=== PATIENT | female | born 1955 | race Caucasian/White ===

== ENCOUNTER → 2018-01-16 08:17 | Outpatient (CLI) | payer MEDICARE, SELFPAY | PROVIDERS: Family Provider Nurse Practitioner; PCP Nurse Practitioner; Visit Provider Nurse Practitioner | DX: K46.9 Unspecified abdominal hernia without obstruction or gangrene (principal) ==

== ENCOUNTER → 2018-02-22 10:58 | Outpatient (CLI) | payer MEDICARE, SELFPAY | PROVIDERS: Family Provider Nurse Practitioner; PCP Nurse Practitioner; Visit Provider Nurse Practitioner | DX: Z12.31 Encounter for screening mammogram for malignant neoplasm of breast (principal); Z78.0 Asymptomatic menopausal state | CPT/HCPCS: 77063; 77067; 77080 ==

== ENCOUNTER → 2018-07-09 11:44 | Outpatient (CLI) | payer MEDICARE, SELFPAY ==
[2014-05-27 10:54] VITALS: BMI 19.5
--- NOTE | 2018-07-09 11:51 | RAD_ITS ---
STUDY: X-RAY - LUMBAR SPINE REASON FOR EXAM: Female, 62 years old. Pain. TECHNIQUE: 5 view(s) of the lumbar spine were obtained. COMPARISON: None FINDINGS: Normal lumbar lordosis. There is no substantial scoliosis. There is a normal alignment of the vertebrae. There is generalized demineralization of the vertebral bodies. Normal disc space heights. Lower lumbar facet arthropathy is present. The soft tissue structures are unremarkable. RAD/L/S Spine Min 4 Views IMPRESSION: Diffuse demineralization with no evidence of malalignment or compression deformity. Electronically Signed: Eric Trejo DO at 22:45 EST , Service support ,
== END ==
PROVIDERS: Family Provider Nurse Practitioner; PCP Nurse Practitioner; Referring Provider Nurse Practitioner; Visit Provider Nurse Practitioner
DX: M54.31 Sciatica, right side (principal)
CPT/HCPCS: 72110

== ENCOUNTER → 2018-07-11 11:22 | Outpatient (CLI) | payer MEDICARE, SELFPAY ==
--- NOTE | 2018-07-11 11:25 | RAD_ITS ---
STUDY: X-RAY - CERVICAL SPINE REASON FOR EXAM: Female, 62 years old. Posterior neck pain radiating into arms x2 years TECHNIQUE: 6 view(s) of the cervical spine were obtained. COMPARISON: None FINDINGS: Normal anterior atlantoaxial articulation. Normal odontoid process. Normal cervical lordosis. There is endplate spondylosis of C6 and C7. There is mild narrowing of the C5-6 and C6-7 disc spaces. There is bilateral foraminal narrowing at the C5-6 and C6-7 levels. The soft tissue structures are unremarkable. RAD/Cerv Spine 4 or 5 Views IMPRESSION: Degenerative changes of the lower cervical spine as detailed above. There is no evidence of fracture or subluxation. Electronically Signed: Cuauhtemoc Maxwell MD at 22:24 EST , Service support ,
--- OUTSIDE RECORDS SUMMARY | 2018-09-15 07:33 | XMS RPT_ITS | Continuity of Care Document ---
:1955 Author Organization [facility] Address [address] [place] [address] Phone Care Team Providers Name Role Phone Amy Thomas CNP Unavailable Judy Emmanuel Unavailable Unavailable Unavailable Unavailable Problems Name Dates Details 5 live births, 2 miscarriages Status: Active Abdominal pain (R10.9, 789.00) Comments: epigastric and left upper Status: Active BMI 20.0-20.9, adult (Z68.20, V85.1) Status: Active Constipation (K59.00, 564.00) Comments: improved with MOM Status: Active Current smoker (F17.200, 305.1) Comments: guerita try to get CtA low dose reordered once we find out about her insurance Status: Active Depression (F32.9, 311) Status: Active Encounter for general adult medical examination with abnormal findings (Z00.01, V70.0) Status: Active Encounter for screening for malignant neoplasm of colon (Renamed from Special screening for malignant neoplasms, colon) (Z12.11, V76.51) Comments: 2004, thinks had it at [place] Status: Active Encounter for screening mammogram for breast cancer (Renamed from Encounter for screening mammogram for malignant neoplasm of breast) (Z12.31, V76.12) Status: Active Facet arthropathy, lumbosacral (M47.817, 721.3) Comments: suggest pain managment, but does not want it Status: Active Family history of lung cancer (Z80.1, V16.1) Comments: sister age 61 Status: Active Fibromyalgia (M79.7, 729.1) Comments: was on lyrica in past unable to tolerate, unable to tolerate cymbalta Status: Active Hand pain, left (M79.642, 729.5) Status: Active Hernia, abdominal (K46.9, 553.9) Comments: surgical scars present, was told in past by Dr. Avila that she has hernia Status: Active Hypercholesteremia (E78.00, 272.0) Comments: quit lipitor could not tolerat simvastatin Status: Active Hypothyroid (E03.9, 244.9) Comments: continue same dose levothyroxine Status: Active Low back ache (M54.5, 724.2) Comments: chronic recent ER for sciatica Status: Active Lung nodule (R91.1, 793.11) Comments: per self history, told to her by Dr. Avila will get old records Status: Active Neck pain (M54.2, 723.1) Status: Active Osteoarthritis (M19.90, 715.90) Status: Active Osteoporosis (M81.0, 733.00) Comments: recommend proliain past in 90's on fosamax and other med quit caused rectal bleed Status: Active Pain in unspecified joint (Renamed from Joint pain) (M25.50, 719.40) Comments: ? arthritis, rheumatoid, vs poly arthropathy will work up Status: Active Postmenopausal (Renamed from Postmenopausal status) (Z78.0, V49.81) Status: Active Rheumatoid arthritis (M06.9, 714.0) Status: Active Sciatica of right side (M54.31, 724.3) Comments: with history of low back pain x 2 years. with rt thigh pain and left side hurting morehistory of deteriorated disc in low back Status: Active Unspecified Diagnosis Status: Active Vitamin D deficiency (E55.9, 268.9) Comments: Suggesting to buy the Vitaimin K2 with D3 today Status: Active Medications Name Dates Details Elavil 25 MG Oral Tablet 1/2 Tablet Tablet qhs for 0 days Quantity: 30 {Tablet} Refills: 3 Ordered:11-Jan-2018 Judy Emmanuel Start : 11-Jan-2018 Active Ergocalciferol 99325 UNIT Oral Capsule 1 (one) Capsule twice weekly x 3months for 0 days Quantity: 12 {Capsule} Refills: 0 Ordered:16-Derick-2019 Martha DOROTHEA Amy Boo CNP, Amy Mcdaniel Start : 11-Jul-2018 Active Gabapentin 300 MG Oral Capsule 1 (one) Capsule Capsule TAD for 0 days Quantity: 90 {Capsule} Refills: 0 Ordered:09-Jul-2018 Judy Emmanuel Start : 09-Jul-2018 Active Comments:Take 1 pill x 1 day, then 1 twice daily x 1 day, then 1 three times a dayOarrs run Ibuprofen 200 MG Oral Capsule 1 (one) Capsule prn for 0 days Quantity: 30 {Capsule} Refills: 0 Ordered:09-Jul-2018 Martha PIEDRA Amy Boo PANTRY ATTENDANT, Amy Mcdaniel Start : 09-Jul-2018 Active Levothyroxine Sodium 50 MCG Oral Tablet 1 (one) Tablet Tablet daily for 0 days Quantity: 30 {Tablet} Refills: 3 Ordered:30-Jan-2018 Judy Emmanuel Start : 11-Jan-2018 Active Meloxicam 15 MG Oral Tablet 1 (one) Tablet qd for 0 days Quantity: 30 {Tablet} Refills: 0 Ordered:11-Jul-2018 Martha PIEDRA Amy Boo DOROTHEA Amy Mcdaniel Start : 11-Jul-2018 Active Comments:with food PredniSONE 10 MG Oral Tablet 1 (one) Tablet Tablet bid x 3 days, 1 daily x 3 days, 1/2 daily x 3 days for 0 days Quantity: 12 {Tablet} Refills: 0 Ordered:09-Jul-2018 Judy Emmanuel Start : 09-Jul-2018 Active Comments:with food Prolia 60 MG/ML Subcutaneous Solution 1 (one) Milliliter [id number] for 0 days Quantity: 1 {Milliliter} Refills: 0 Ordered:11-Jul-2018 Martha PIEDRA Amy Boo CNP Amy Mcdaniel Start : 11-Jul-2018 Active Prolia 60 MG/ML Subcutaneous Solution 1 (one) Milliliter [id number] for 0 days Quantity: 1 {Syringe} Refills: 1 Ordered:11-Jul-2018 Martha PIEDRA Amy Boo DOROTHEA Amy Mcdaniel Start : 11-Jul-2018 Active Lipitor 10 MG Oral Tablet 1 (one) Tablet Tablet qhs for 0 days Quantity: 30 {Tablet} Refills: 6 Ordered:09-Jul-2018 Judy Emmanuel Start : 30-Jan-2018 End : 09-Jul-2018 Discontinued Medrol 4 MG Oral Tablet 1 (one) Tablet Tablet TAD for 0 days Quantity: 1 {Package} Refills: 0 Ordered:09-Jul-2018 CholoJudy castellon Start : 05-Feb-2018 End : 09-Jul-2018 Discontinued Comments:with food Allergies and Adverse Reactions Name Dates Details No Allergy Information Available Status: Procedures Procedure Dates Details Gallbladder Surgery Completed Hysterectomy Completed Date Value Details 09-Jul-2018 L/S Spine Min 4 Views Result: Comments: See Note; NOTES: [facility] Imaging Services [address] [place] [address] L/S Spine Min 4 Views MR#: [id number] Acct: [id number] Name: YANELY CEJA Rep #: [id number] : 1955 F 62 From: Eric Trejo DO PCP: Amy Thomas NP Status: REG CLI Study: L/S Spine Min 4 Views Date of Exam: 07/09/18 Exam# [id number] Ordering Dr: Amy Thomas HOME ENERGY INSPECTOR-C STUDY: X-RAY - LUMBAR SPINE REASON FOR EXAM: Female, 62 years old. Pain. TECHNIQUE: 5 view(s) of the lumbar spine were obtained. COMPARISON: None FINDINGS: Normal lumbar lordosis. Ther e is no substantial scoliosis. There is a normal alignment of the vertebrae. There is generalized demineralization of the vertebral bodies. Normal disc space heights. Lower lumbar facet arthropathy is present. The soft tissue structures are unremarkable. RAD/L/S Spine Min 4 Views IMPRESSION: Diffuse demineralization with no evidence of malalig nment or compression deformity. Electronically Signed: Eric Trejo DO at 22:45 EST , Service support , CC: Amy Thomas NP Manager Assessment: Signed 09-Jul-2018 L/S Spine Min 4 Views Result: Comments: See Note; NOTES: [facility] Imaging Services [address] [place] [address] L/S Spine Min 4 Views MR#: [id number] Acct: [id number] Name: YANELY CEJA Rep #: [id number] : 1955 F 62 From: Eric Trejo PCP: Amy Thomas NP Status: REG CLI Study: L/S Spine Min 4 Views Date of Exam: 07/09/18 Exam# [id number] Ordering Dr: Amy Thomas HOME ENERGY INSPECTOR-C STUDY: X-RAY - LUMBAR SPINE REASON FOR EXAM: Female, 62 years old. Pain. TECHNIQUE: 5 view(s) of the lumbar spine were obtained. COMPARISON: None FINDINGS: Normal lumbar lordosis. Ther e is no substantial scoliosis. There is a normal alignment of the vertebrae. There is generalized demineralization of the vertebral bodies. Normal disc space heights. Lower lumbar facet arthropathy is present. The soft tissue structures are unremarkable. RAD/L/S Spine Min 4 Views IMPRESSION: Diffuse demineralization with no evidence of malalig nment or compression deformity. Electronically Signed: Eric Trejo DO at 22:45 EST , Service support , CC: Amy Thomas NP Manager Assessment: Signed 22-Feb-2018 Dexa Bone Density Study Result: Comments: See Note; NOTES: [facility] Imaging Services [address] [place] [address] Dexa Bone Density Study MR#: [id number] Acct: [id number] Name: YANELY CEJA Rep #: [id number] : 1955 F 62 From: Sergey Walsh MD PCP: Amy Thomas NP Status: REG CLI Study: Dexa Bone Density Study Date of Exam: 02/22/18 Exam# [id number] Ordering Dr: Amy Thomas STUDY: DUAL ENERG Y X-RAY ABSORPTIOMETRY / DXA REASON FOR EXAM: Female, 62 years old. The patient is postmenopausal. Loss of height. TECHNIQUE: Bone Mineral Density (BMD) measurements of lumbar spine and bilateral hips were obtained. COMPARISON: None. FINDINGS: Lumbar Spine (L1-L4): g/cm2 (0.791) / T-score (-3.2) / Z-score (-1.8) Findings are suggestive of osteoporosis with a hi gh fracture risk. Left Femur Total: g/cm2 (0.653) / T-score (-2.8) / Z-score (-1.7) Left Femoral Neck: g/cm2 (0.590) / T-score (-3.2) / Z-score (-1.8) Right Femur Total: g/cm2 (0.618) / T-score (-3.1) / Z-score (-2.0) Right Femoral Neck: g/cm2 (0.5-3) / T-score (-3.7) / Z-score (-2.3) BD/Dexa Bone Density Study IMPRESSION: The patient is consi dered osteoporotic as outlined below according to World Nav Organization (WHO) criteria with a high fracture risk. Reference Information: The T-score is the numbe r of standard deviations above or below the standard which is normal for young adults at their peak bone mineral density. The World Health Organization (WHO) interprets the T-scores as follows: Above - 1 Normal bone density Between -1 and -2.5 Osteopenia Equal to / or below -2.5 Osteoporosis As a practical clinical guideline, osteopenia may be graded as follows: Mild -1 through -1.5 Moderate -1.6 thr ough -2.0 Severe -2.1 through -2.4 The Z-score is the number of standard deviations above or below age-matched controls. A Z-score of less than -1.5 would be considered abnormal. References: 1. NIH Os teoporosis and Related Bone Diseases http://www.osteo.org 2. International Society for Clinical Densitometry http://www.iscd.org 3. National Osteoporosis Foundation http://www.nof.org Electronically Si gned: Sergey Walsh MD at 15:25 EDT Tel [phone], Service support , CC: Amy Thomas NP Manager Assessment: Signed 22-Feb-2018 SCREENING MAMM (CAD), BILAT Result: Comments: See Note; NOTES: [facility] Imaging Services [address] [place] [address] SCREENING MAMM (CAD), BILAT MR#: [id number] Acct: [id number] Name: YANELY CEJA Rep #: [id number] : 1955 F 62 From: Sergey Walsh MD PCP: Amy Thomas NP Status: REG CLI Study: SCREENING MAMM (CAD), BILAT Date of Exam: 02/22/18 Exam# [id number] Ordering Dr: Amy Thomas MAMMOGRAP HY - BILATERAL SCREENING REASON FOR EXAM: Female, 62 years old. Routine annual screening examination. PERTINENT HISTORY: Non-contributory. TECHNIQUE: Digital bilateral breast aron (3D mammographic ac quisition) in the CC and MLO projections. 2-D mediolateral oblique (MLO) and craniocaudad (CC) views of both breasts were obtained. CAD: Full Field Digital Mammography with Computer Added Detection was performed. COMPARISON: Comparison is made with prior examination of April 22, 2014. FINDINGS: Breast Composition: There are scattered areas of fibroglandular dens ity. There are no dominant masses or suspicious calcifications. No other significant abnormalities are identified. There has been no significant change since the prior study. BI/SCREENING MAMM (CAD), BILAT IMPRESSION: Stable bilateral screening mammogram. Yearly follow-up mammogram recommended. (A) ASSESSM ENT CATEGORY: BIRADS Category 1: Negative. A letter regarding these results will be sent to the patient by the facility within 30 days. Approximately 10% of breast cancers are not detected by mammograp hy. A normal mammogram should not delay biopsy of a clinically suspicious abnormality. [id number] Electronically Signed: Sergey Walsh MD at 12:57 EDT Tel [phone], Service support [phone], CC: Amy Thomas NP Manager Assessment: Signed Family History Unknown Family Member Name Dates Details Mother Comments: Melanoma Status: Active Sister 1 Comments: Lung cancer Status: Active Social History Name Dates Details Alcohol use: Non Drinker / No Alcohol Use. Status: Active Tobacco use: Current every day smoker. Status: Active Smoking Status Name Dates Details Current every day smoker Vital Signs Date Test Result Details 25-Rng-775039:30 Temperature 97.9 f Comments: Method: Temporal Pulse 93 /min Comments: Pattern: Regular Respiration Rate 18 /min Comments: Pattern: Unlabored O2 SAT 98 % Comments: Room air BP Systolic 130 mm[Hg] Comments: Patient Position: Sitting; Cuff Location: Left Arm; Cuff Size: Standard BP Diastolic 80 mm[Hg] Comments: Patient Position: Sitting; Cuff Location: Left Arm; Cuff Size: Standard Weight 111 lb Height 62 in Body Mass Index Calculated 20.3 kg/m2 Body Surface Area Calculated 1.49 m2 41-Gqe-311148:31 Temperature 97.2 f Comments: Method: Temporal Pulse 92 /min Comments: Pattern: Regular Respiration Rate 18 /min Comments: Pattern: Unlabored O2 SAT 97 % Comments: Room air BP Systolic 134 mm[Hg] Comments: Patient Position: Sitting; Cuff Location: Left Arm; Cuff Size: Standard BP Diastolic 78 mm[Hg] Comments: Patient Position: Sitting; Cuff Location: Left Arm; Cuff Size: Standard Weight 111 lb Height 62 in Body Mass Index Calculated 20.3 kg/m2 Body Surface Area Calculated 1.49 m2 :15 Temperature 96.4 f Comments: Method: Temporal Pulse 79 /min Comments: Pattern: Regular Respiration Rate 18 /min Comments: Pattern: Unlabored O2 SAT 97 % Comments: Room air BP Systolic 102 mm[Hg] Comments: Patient Position: Sitting; Cuff Location: Left Arm; Cuff Size: Standard BP Diastolic 68 mm[Hg] Comments: Patient Position: Sitting; Cuff Location: Left Arm; Cuff Size: Standard Weight 112.25 lb Height 62 in Body Mass Index Calculated 20.53 kg/m2 Body Surface Area Calculated 1.5 m2 :02 Temperature 98 f Comments: Method: Temporal Pulse 88 /min Comments: Pattern: Regular Respiration Rate 17 /min Comments: Pattern: Unlabored O2 SAT 91 % Comments: Room air BP Systolic 124 mm[Hg] Comments: Patient Position: Sitting; Cuff Location: Left Arm; Cuff Size: Standard BP Diastolic 74 mm[Hg] Comments: Patient Position: Sitting; Cuff Location: Left Arm; Cuff Size: Standard Weight 112 lb Height 62 in Body Mass Index Calculated 20.48 kg/m2 Body Surface Area Calculated 1.49 m2 :56 Temperature 98.1 f Comments: Method: Temporal Pulse 89 /min Comments: Pattern: Regular Respiration Rate 18 /min Comments: Pattern: Unlabored O2 SAT 99 % Comments: Room air BP Systolic 108 mm[Hg] Comments: Patient Position: Sitting; Cuff Location: Left Arm; Cuff Size: Standard BP Diastolic 52 mm[Hg] Comments: Patient Position: Sitting; Cuff Location: Left Arm; Cuff Size: Standard Weight 112 lb Height 62 in Body Mass Index Calculated 20.48 kg/m2 Body Surface Area Calculated 1.49 m2 :13 Temperature 98 f Pulse 88 /min Comments: Pattern: Regular Respiration Rate 17 /min Comments: Pattern: Unlabored O2 SAT 99 % Comments: Room air BP Systolic 120 mm[Hg] Comments: Patient Position: Sitting; Cuff Location: Left Arm; Cuff Size: Standard BP Diastolic 76 mm[Hg] Comments: Patient Position: Sitting; Cuff Location: Left Arm; Cuff Size: Standard Weight 112 lb Height 62 in Body Mass Index Calculated 20.48 kg/m2 Body Surface Area Calculated 1.49 m2 Results Date Description Value Details 48-Diz-128964:32 ANGTENSIN 1-CONVRT ENZYM Comments: PATIENT NOT FASTINGPERFORMED BY: [place] [id number] [facility] [id number] BY: [address] [id number] ([id number]) TIMMY 36 U/L (Normal) Range: 14-82 45-Xlm-453640:32 Lyme Disease Antibody W/ Comments: PATIENT NOT FASTINGPERFORMED BY: [address] [id number] BY: [address] [id number] Reflex ([id number]) Lyme IgG/IgM Ab <0.91 {ISR} (Normal) Range: 0.00-0.90 Comments: Negative <0.91 Equivocal 0.91 - 1.09 Positive >1.09 84-Gec-460371:32 CCP ANTIBODY (69644) Comments: PATIENT NOT FASTINGPERFORMED BY: [place] [id number] [facility] [id number] BY: [address] [id number] CCP Antibodies IgG/IgA 4 {units} (Normal) Range: 0-19 Comments: Negative <20 Weak positive 20 - 39 Moderate positive 40 - 59 Strong positive >59 44-Ucj-284495:32 SED RATE ERYTHROCYTE Comments: PATIENT NOT FASTINGPERFORMED BY: [address] [id number] BY: [address] [id number] ([id number]) Sedimentation Rate-Westergren 3 mm/h (Normal) Range: 0-40 76-Ilg-671481:32 C-REACTIVE PROTEIN Comments: PATIENT NOT FASTINGPERFORMED BY: [address] [id number] BY: [address] [id number] (83870) C-Reactive Protein, Quant 0.4 mg/L (Normal) Range: 0.0-4.9 46-Gdy-506503:32 TSH (70455) Comments: PATIENT NOT FASTINGPERFORMED BY: [facility] [id number] [facility] [id number] BY: [address] [id number] TSH 2.230 {uIU/mL} (Normal) Range: 0.450-4.500 41-Mpt-657071:32 RHEUMATOID FACTOR-QUANT Comments: PATIENT NOT FASTINGPERFORMED BY: [facility] [id number] [facility] [id number] BY: [address] [id number] ([id number]) RA Latex Turbid. <10.0 {IU/mL} (Normal) Range: 0.0-13.9 06-Crq-489823:32 TOMI (ANTINUCLEAR ANTIBODY) Comments: PATIENT NOT FASTINGPERFORMED BY: [facility] [id number] [facility] [id number] BY: [address] [id number] (77712) TOMI Direct Negative (Normal) 42-Ifz-848315:32 METABOLIC PANEL, Comments: PATIENT NOT FASTINGPERFORMED BY: [facility] [id number] [facility] [id number] BY: [address] [id number] COMPREHENSIVE (29088) ALT (SGPT) 12 [iU]/L (Normal) Range: 0-32 AST (SGOT) 16 [iU]/L (Normal) Range: 0-40 Alkaline Phosphatase 77 [iU]/L (Normal) Range: 39-117 Bilirubin, Total <0.2 mg/dL (Normal) Range: 0.0-1.2 A/G Ratio 1.9 (Normal) Range: 1.2-2.2 Globulin, Total 2.4 g/dL (Normal) Range: 1.5-4.5 Albumin 4.5 g/dL (Normal) Range: 3.6-4.8 Protein, Total 6.9 g/dL (Normal) Range: 6.0-8.5 Calcium 9.5 mg/dL (Normal) Range: 8.7-10.3 Carbon Dioxide, Total 23 mmol/L (Normal) Range: 20-29 Chloride 106 mmol/L (Normal) Range: 96-106 Potassium 4.5 mmol/L (Normal) Range: 3.5-5.2 Sodium 142 mmol/L (Normal) Range: 134-144 BUN/Creatinine Ratio 15 (Normal) Range: 12-28 eGFR If Africn Am 92 mL/min/1.73 (Normal) eGFR If NonAfricn Am 80 mL/min/1.73 (Normal) Creatinine 0.79 mg/dL (Normal) Range: 0.57-1.00 BUN 12 mg/dL (Normal) Range: 8-27 Glucose 90 mg/dL (Normal) Range: 65-99 22-Opg-091033:32 CBC with auto diff Comments: PATIENT NOT FASTINGPERFORMED BY: CB [facility] Laehfx9822 [facility] [id number] BY: BN [facility] Kqpopjjupp7049 [facility] [id number] (87860) Immature Grans (Abs) 0.0 {x10E3/uL} (Normal) Range: 0.0-0.1 Immature Granulocytes 0 % (Normal) Baso (Absolute) 0.0 {x10E3/uL} (Normal) Range: 0.0-0.2 Eos (Absolute) 0.1 {x10E3/uL} (Normal) Range: 0.0-0.4 Monocytes(Absolute) 0.5 {x10E3/uL} (Normal) Range: 0.1-0.9 Lymphs (Absolute) 3.1 {x10E3/uL} (Normal) Range: 0.7-3.1 Neutrophils (Absolute) 4.1 {x10E3/uL} (Normal) Range: 1.4-7.0 Basos 0 % (Normal) Eos 1 % (Normal) Monocytes 7 % (Normal) Lymphs 40 % (Normal) Neutrophils 52 % (Normal) Platelets 279 {x10E3/uL} (Normal) Range: 150-379 RDW 12.9 % (Normal) Range: 12.3-15.4 MCHC 32.6 g/dL (Normal) Range: 31.5-35.7 MCH 32.6 pg (Normal) Range: 26.6-33.0 MCV 100 fL (Abnormal) Range: 79-97 Hematocrit 43.9 % (Normal) Range: 34.0-46.6 Hemoglobin 14.3 g/dL (Normal) Range: 11.1-15.9 RBC 4.39 {x10E6/uL} (Normal) Range: 3.77-5.28 WBC 7.7 {x10E3/uL} (Normal) Range: 3.4-10.8 37-Kth-458485:13 URINALYSIS ([id number]) Comments: PATIENT WAS FASTINGPERFORMED BY: [email or web address] [id number] Microscopic Examination MICNIP (Normal) Comments: Microscopic not indicated and not performed. Nitrite, Urine Negative (Normal) Urobilinogen,Semi-Qn 0.2 mg/dL (Normal) Range: 0.2-1.0 Bilirubin Negative (Normal) Occult Blood Negative (Normal) Ketones Negative (Normal) Glucose Negative (Normal) Protein Negative (Normal) WBC Esterase Negative (Normal) Appearance Clear (Normal) Urine-Color Yellow (Normal) pH 6.0 (Normal) Range: 5.0-7.5 Specific [place] 1.013 (Normal) Range: 1.005-1.030 78-Imm-771122:13 CBC, Platelets & Auto Comments: PATIENT WAS FASTINGPERFORMED BY: [facility] CenterWssnbg2157 [facility] [id number] Information: [id number] Diff (83189) Immature Grans (Abs) 0.0 {x10E3/uL} (Normal) Range: 0.0-0.1 Immature Granulocytes 0 % (Normal) Baso (Absolute) 0.0 {x10E3/uL} (Normal) Range: 0.0-0.2 Eos (Absolute) 0.1 {x10E3/uL} (Normal) Range: 0.0-0.4 Monocytes(Absolute) 0.5 {x10E3/uL} (Normal) Range: 0.1-0.9 Lymphs (Absolute) 3.5 {x10E3/uL} (Abnormal) Range: 0.7-3.1 Neutrophils (Absolute) 4.3 {x10E3/uL} (Normal) Range: 1.4-7.0 Basos 0 % (Normal) Eos 1 % (Normal) Monocytes 6 % (Normal) Lymphs 41 % (Normal) Neutrophils 52 % (Normal) Platelets 281 {x10E3/uL} (Normal) Range: 150-379 RDW 13.0 % (Normal) Range: 12.3-15.4 MCHC 33.8 g/dL (Normal) Range: 31.5-35.7 MCH 34.1 pg (Abnormal) Range: 26.6-33.0 MCV 101 fL (Abnormal) Range: 79-97 Hematocrit 43.8 % (Normal) Range: 34.0-46.6 Hemoglobin 14.8 g/dL (Normal) Range: 11.1-15.9 RBC 4.34 {x10E6/uL} (Normal) Range: 3.77-5.28 WBC 8.4 {x10E3/uL} (Normal) Range: 3.4-10.8 67-Ztj-598572:13 Metabolic Panel, Comprehensive Comments: PATIENT WAS FASTINGPERFORMED BY: LabCoH[facility] CenterRredti6079 [facility] [id number] ([id number]) ALT (SGPT) 14 [iU]/L (Normal) Range: 0-32 AST (SGOT) 16 [iU]/L (Normal) Range: 0-40 Alkaline Phosphatase 81 [iU]/L (Normal) Range: 39-117 Bilirubin, Total 0.3 mg/dL (Normal) Range: 0.0-1.2 A/G Ratio 1.9 (Normal) Range: 1.2-2.2 Globulin, Total 2.4 g/dL (Normal) Range: 1.5-4.5 Albumin 4.6 g/dL (Normal) Range: 3.6-4.8 Protein, Total 7.0 g/dL (Normal) Range: 6.0-8.5 Calcium 9.9 mg/dL (Normal) Range: 8.7-10.3 Carbon Dioxide, Total 23 mmol/L (Normal) Range: 20-29 Chloride 105 mmol/L (Normal) Range: 96-106 Potassium 5.1 mmol/L (Normal) Range: 3.5-5.2 Sodium 144 mmol/L (Normal) Range: 134-144 BUN/Creatinine Ratio 17 (Normal) Range: 12-28 eGFR If Africn Am 95 mL/min/1.73 (Normal) eGFR If NonAfricn Am 82 mL/min/1.73 (Normal) Creatinine 0.77 mg/dL (Normal) Range: 0.57-1.00 BUN 13 mg/dL (Normal) Range: 8-27 Glucose 96 mg/dL (Normal) Range: 65-99 57-Hvs-408427:13 LIPID PANEL (63935) Comments: PATIENT WAS FASTINGPERFORMED BY: [employer] Igcrzc2757 [facility] [id number] LDL/HDL Ratio 2.6 {ratio} (Normal) Range: 0.0-3.2 Comments: LDL/HDL Ratio Men Women 1/2 Avg.Risk 1.0 1.5 Av g.Risk 3.6 3.2 2X Avg.Risk 6.2 5.0 3X Avg.Risk 8.0 6.1 LDL Cholesterol Calc 187 mg/dL (Abnormal) Range: 0-99 VLDL Cholesterol Anoop 30 mg/dL (Normal) Range: 5-40 HDL Cholesterol 71 mg/dL (Normal) Triglycerides 150 mg/dL (Abnormal) Range: 0-149 Cholesterol, Total 288 mg/dL (Abnormal) Range: 100-199 47-Xqu-976125:13 CALCIFEDIOL (70912) Comments: PATIENT WAS FASTINGPERFORMED BY: [facility] GroupHoboken [facility] Medical CenterKvacwh2753 [facility] [id number] Vitamin D, 25-Hydroxy 22.6 ng/mL (Abnormal) Range: 30.0-100.0 Comments: Vitamin D deficiency has been defined by the [place] of[place]icine and an Endocrine Society practice guideline as alevel of serum 25-OH vitamin D less than 20 ng/mL (1,2).The Endocrine Society went on to further define vitamin Dinsufficiency as a level between 21 and 29 ng/mL (2).1. IOM ([place] of [employer]). 2010. Dietary reference intakes for calcium and D. [place]: The National Academies Press.2. Tammy MF, Dav NC, Armida HALEY, et al. Evaluation, treatment, and prevention of vitamin D deficiency: an Endocrine Society clinical practice guideline. JCEM. 2010; 96(7):1911-30. 03-Lck-375593:13 TSH (THYROID STIMULATING Comments: PATIENT WAS FASTINGPERFORMED BY: LabCoH[facility] CenterOrzads0465 [facility] [id number]; OV 01/26 HORMONE) (85980) TSH 2.950 {uIU/mL} (Normal) Range: 0.450-4.500 Plan of Care Name Dates Details Instructions BMI 20.0-20.9, adult : Follow up in 3 months Indication: BMI 20.0-20.9, adult BMI 20.0-20.9, adult : Follow up in 3 months Indication: BMI 20.0-20.9, adult Current smoker : Eprescribed prescriptions (G8553) Indication: Current smoker BMI 20.0-20.9, adult : Follow up in 2 or 4 weeks Indication: BMI 20.0-20.9, adult Current smoker : Eprescribed prescriptions (G8553) Indication: Current smoker BMI 20.0-20.9, adult : Follow up as needed Indication: BMI 20.0-20.9, adult Current smoker : Eprescribed prescriptions (G8553) Indication: Current smoker BMI 20.0-20.9, adult : Follow up in 3 weeks Indication: BMI 20.0-20.9, adult Current smoker : Eprescribed prescriptions (G8553) Indication: Current smoker Postmenopausal (Renamed from Postmenopausal status) : Follow up in 3 months Indication: Postmenopausal (Renamed from Postmenopausal status) Hypothyroid : Reviewed Diagnostic Tests Indication: Hypothyroid Hypothyroid : Reviewed Lab Indication: Hypothyroid Current smoker : Eprescribed prescriptions (G8553) Indication: Current smoker Low back ache : Follow up in 2 weeks Indication: Low back ache Encounter for screening for malignant neoplasm of colon (Renamed from Special screening for malignant neoplasms, colon) : *Colon Cancer Screening Indication: Encounter for screening for malignant neoplasm of colon (Renamed from Special screening for malignant neoplasms, colon) Hypothyroid : Eprescribed prescriptions (G8553) Indication: Hypothyroid Planned Observations Metabolic Panel, Comprehensive ([id number])Indication: Hypercholesteremia On: 1-Cxt-893420:03 Request Comments: Apr 2018 LIPID PANEL ([id number])Indication: Hypercholesteremia On: 7-Imq-637398:03 Request Comments: Apr 2018 Planned Encounters Medical; 3 Month FU - On: 10-Oct-2018 11:15 [facility] Amy Thomas CNP, CNP, Mary E Planned Procedures Radiology - Cervical SpineBy: Martha On: 11-Jul-2018 Intent Amy PIEDRA CNP, Mary E Radiology - Lumbar SpineBy: Martha PIEDRA, On: 09-Jul-2018 Intent Amy Norwood CNP CTA OF CHEST WITHOUT CONTRAST THEN CTA On: 05-Feb-2018 Intent OF CHEST AND ABDOMEN WITH CONTRAST ([id number])By: Amy Thomas CNP, CNP, Mary E DEXA SCAN AXIAL SKELETON ([id number])By: On: 30-Jan-2018 Intent Amy Thomas CNP, CNP, Mary E SCREENING DIGITAL TOMOSYNTHESIS OF On: 30-Jan-2018 Intent BREAST ([id number])By: Amy Thomas CNP, CNP, Mary E CT SCAN OF ABDOMEN AND PELVIS WITH On: 16-Jan-2018 Intent CONTRAST ([id number])By: Amy Thomas CNP Comments: hernia vs colon issue vs other Amy Thomas CNP Ultrasound - Abdomen CompleteBy: Martha On: 11-Jan-2018 Intent Amy PIEDRA CNP, Mary E DEXA SCAN AXIAL SKELETON ([id number])By: On: 11-Jan-2018 Intent Amy Thomas CNP, CNP, Mary E SCREENING DIGITAL TOMOSYNTHESIS OF On: 11-Jan-2018 Intent BREAST ([id number])By: Amy Thomas CNP, CNP, Mary E Instructions Name Dates Details Current smoker : How to access health information online Indication: Current smoker Current smoker : How to access health information online - Detail Indication: Current smoker BMI 20.0-20.9, adult : Patient Instructions Indication: BMI 20.0-20.9, adult Current smoker : How to access health information online Indication: Current smoker Current smoker : How to access health information online - Detail Indication: Current smoker Current smoker : Patient Instructions Indication: Current smoker Current smoker : How to access health information online Indication: Current smoker Current smoker : How to access health information online - Detail Indication: Current smoker Current smoker : Patient Instructions Indication: Current smoker Current smoker : How to access health information online Indication: Current smoker Current smoker : How to access health information online - Detail Indication: Current smoker Current smoker : Patient Instructions Indication: Current smoker Current smoker : How to access health information online Indication: Current smoker Current smoker : How to access health information online - Detail Indication: Current smoker BMI 20.0-20.9, adult : Patient Instructions Indication: BMI 20.0-20.9, adult Hypothyroid : How to access health information online Indication: Hypothyroid Hypothyroid : How to access health information online - Detail Indication: Hypothyroid Hypothyroid : Patient Instructions Indication: Hypothyroid Encounters Office Visit On: 11-Jul-2018 10:29 Encounter Reason: Follow up tests - Diagnostic tests include other (test) and X- Ray. Date: (07/09/18). Note for Discuss procedure results: Here to discuss lab results and painEncounter Diagnosis: Current smoker, BMI 20.0-20.9, adult, End: 11-Jul-2018 11:07 Facet arthropathy, lumbosacral, Osteoporosis, Neck pain, Hand pain, left, Vitamin D deficiency [facility] Office Visit On: 09-Jul-2018 10:30 Encounter Reason: Leg Pain - Symptoms include leg pain. The pain is located symmetrically. The patient describes the pain as aching, burning, stinging and throbbing. Onset was month(s) ago. Note for Leg pain: Gets up i End: 09-Jul-2018 11:25 n am and legs hurt and throbbing. ??Hurt constantly, can hardly sleep, arms go numb.Has feeling of pins and needle, in legs, [ADDITIONAL REASON] Arm pain - The pain has been occurring for months. Note for Pain: both arms: stinging, throbbing, burning, aching Encounter Diagnosis: Current smoker, BMI 20.0- 20.9, adult, Pain in unspecified joint (Renamed from Joint pain), Sciatica of right side [facility] Office Visit On: 27-Feb-2018 11:12 Encounter Reason: Follow up tests - Diagnostic tests include bone scan (bone density) and mammography. Date: (02/22/18). Note for Discuss procedure results: Here to discuss labs and bone density, End: 27-Feb-2018 12:00 [ADDITIONAL REASON] Follow up acute care visit - The patient feeling better since last seen. Encounter Diagnosis: Current smoker, BMI 20.0-20.9, adult, Osteoporosis, Constipation [facility] Office Visit On: 05-Feb-2018 15:00 Encounter Reason: Abdominal pain - The onset of the pain has been gradual and has been occurring in a persistent pattern. The course has been constant. The pain is described as dull ache. The pain is described as being l End: 05-Feb-2018 16:01 ocated in the upper abdomen. The symptoms have no relieving factors. Note for Pain: Was to get CT scan but not got it done, was to be Jan 26, [ADDITIONAL REASON] lung spot - History per Dr. Avila of a lung nodule, strong family history of can cer, twin with lung cancer, other sister with stomach cancer. Encounter Diagnosis: BMI 20.0-20.9, adult, Current smoker, Abdominal pain, Hernia, abdominal, Family history of lung cancer, Lung nodule, Sciatica of right side [facility] Office Visit On: 30-Jan-2018 10:52 Encounter Reason: Follow up tests - Diagnostic tests include other (labs). Date: (01/11/18). Note for Discuss procedure results: Was unable to get mammogram and bone densityEncounter Diagnosis: Current smoker, BMI 20.0-20.9, adult, Hypothyroid, End: 30-Jan-2018 14:15 Vitamin D deficiency, Hypercholesteremia, Encounter for screening mammogram for breast cancer (Renamed from Encounter for screening mammogram for malignant neoplasm of breast), Postmenopausal (Renamed from Postmenopausal status) [facility] Annotation/Addendum On: 16-Jan-2018 9:24 Encounter Diagnosis: Abdominal pain End: 16-Jan-2018 9:29 [facility] Annotation/Addendum On: 11-Jan-2018 14:14 Encounter Diagnosis: Unspecified Diagnosis End: 11-Jan-2018 14:15 [facility] Office Visit On: 11-Jan-2018 9:03 Encounter Reason: new patient female physical - Last seen more than 1 year ago. General health: feels well with minor complaints (back pain-was out for 3 weeks, just now getting better). The patient's appetite is normal. End: 11-Jan-2018 10:26 Exercises 3 days per week. Sleeps on average 6 hours per night. Normal bowel and bladder habits. Current emotional problems include anxiety and depression. screening, colonoscopy (2 prior done. ??Last one was 2004. Normal) and screening, mammography (A few years ago). Note for Physical exam: Saw Dr. Dsouza in pat at [facility]. Pt has flor, [ADDITIONAL REASON] Hernia, Incisional - Note for Incisional hernia: Has hernia which she would li ke taken care of Encounter Diagnosis: Fibromyalgia, Osteoarthritis, Osteoporosis, Hypothyroid, Current smoker, Rheumatoid arthritis, Depression, Encounter for screening for malignant neoplasm of colon (Renamed from Special screening for malignant neoplasms, colon), Encounter for general adult medical examination with abnormal findings, Encounter for screening mammogram for breast cancer (Renamed from Encounter for screening mammogram for malignant neoplasm of breast), Postmenopausal (Renamed from Postmenopausal status), Hernia, abdominal, Hypercholesteremia, Abdominal pain, Low back ache [facility] Payers [employer] Jose Ceja; a 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
--- OUTSIDE RECORDS SUMMARY | 2018-09-15 07:33 | XMS RPT_ITS | Continuity of Care Document ---
:1955 Author Organization [facility] Address [facility] [place] [address] Phone Care Team Providers Name Role Phone [...] V76.51) Comments: 2004, thinks had it at [facility] Status: Active Encounter for screening mammogram for breast cancer (Renamed from Encounter for screening mammogram for malignant neoplasm of breast) (Z12.31, V76.12) Status: Active Family history of lung cancer (Z80.1, V16.1) Comments: sister age 61 Status: Active Fibromyalgia (M79.7, 729.1) Comments: was on lyrica in past unable to tolerate, unable to tolerate cymbalta Status: Active Hernia, abdominal (K46.9, 553.9) Comments: [...] Avila will get old records Status: Active Osteoarthritis (M19.90, 715.90) Status: Active [...] Ordered:11-Jan-2018 Judy Emmanuel Start : 11-Jan-2018 Active Gabapentin 300 MG Oral Capsule 1 (one) Capsule TAD for 0 days Quantity: 90 {Capsule} Refills: 0 Ordered:09-Jul-2018 Amy Thomas CNP, CNP, Mary E Start : 09-Jul-2018 Active Comments:Take 1 pill x 1 day, then 1 twice daily x 1 day, then 1 three times a dayOarrs run Ibuprofen 200 MG Oral Capsule 1 (one) Capsule prn for 0 days Quantity: 30 {Capsule} Refills: 0 Ordered:09-Jul-2018 Martha PIEDRA, Amy Boo CNP, Irina Start : 09-Jul-2018 Active Levothyroxine Sodium 50 MCG Oral Tablet 1 (one) Tablet Tablet daily for 0 days Quantity: 30 {Tablet} Refills: 3 Ordered:30-Jan-2018 Judy Emmanuel Start : 11-Jan-2018 Active PredniSONE 10 MG Oral Tablet 1 (one) Tablet bid x 3 days, 1 daily x 3 days, 1/2 daily x 3 days for 0 days Quantity: 12 {Tablet} Refills: 0 Ordered:09-Jul-2018 Beat[place]ong PIEDRA, Amy Boo CNP, Irina Start : 09-Jul-2018 Active Comments:with food Lipitor 10 MG Oral Tablet 1 (one) Tablet Tablet qhs for 0 days Quantity: 30 {Tablet} Refills: 6 Ordered:09-Jul-2018 Judy Emmanuel Start : 30-Jan-2018 End : 09-Jul-2018 Discontinued Medrol 4 MG Oral Tablet 1 (one) Tablet Tablet TAD for 0 days Quantity: 1 {Package} Refills: 0 Ordered:09-Jul-2018 Judy Emmanuel Start : 05-Feb-2018 End : 09-Jul-2018 Discontinued Comments:with food Allergies and Adverse Reactions Name Dates Details No Allergy Information Available Status: Procedures Procedure Dates Details Gallbladder Surgery Completed Hysterectomy Completed Date Value Details 22-Feb-2018 Dexa Bone Density Study Result: Comments: See Note; NOTES: [facility] Imaging Services [address] [place] [address] Dexa Bone Density Study MR#: [id number] Acct: [id number] Name: YANELY CEJA Rep #: [id number] : 1955 F 62 From: Sergey Walsh MD PCP: Amy Thomas NP Status: REG CLI Study: Dexa Bone Density Study Date of Exam: 02/22/18 Exam# [id number] Ordering Dr: Amy Thomas STUDY: DUAL ENERG [...] Sergey Walsh MD at 15:25 EDT Tel [phone], Service support , CC: Amy Thomas NP Orthotist Or Prosthetist: Signed 22-Feb-2018 SCREENING MAMM (CAD), BILAT Result: Comments: See Note; NOTES: [facility] Imaging Services [address] [place] [address] SCREENING MAMM (CAD), BILAT MR#: [id number] Acct: [id number] Name: YANELY CEJA Rep #: [id number] : 1955 F 62 From: Sergey Walsh MD PCP: Amy Thomas NP Status: REG CLI Study: SCREENING MAMM (CAD), BILAT Date of Exam: 02/22/18 Exam# [id number] Ordering Dr: Amy Thomas MAMMOGRAP HY - [...] delay biopsy of a clinically suspicious abnormality. [id number] Electronically Signed: Sergey Walsh MD at 12:57 EDT Tel [phone], Service support [phone], CC: Amy Thomas NP Orthotist Or Prosthetist: Signed Family History Unknown Family Member Name Dates Details Mother Comments: Melanoma Status: Active Sister 1 Comments: Lung cancer Status: Active Social History Name Dates Details Alcohol use: Non Drinker / No Alcohol Use. Status: Active Tobacco use: Current every day smoker. Status: Active Smoking Status Name Dates Details Current every day smoker Vital Signs Date Test Result Details 61-Ehb-263450:31 Temperature 97.2 f Comments: Method: Temporal Pulse [...] kg/m2 Body Surface Area Calculated 1.5 m2 15-Vqg-517283:02 Temperature 98 f Comments: Method: Temporal Pulse [...] 1.49 m2 Results Date Description Value Details :13 URINALYSIS (61211) Comments: PATIENT WAS FASTINGPERFORMED BY: [id number] [id number] Microscopic Examination MICNIP (Normal) Comments: Microscopic not indicated and not performed. Nitrite, Urine Negative (Normal) Urobilinogen,Semi-Qn 0.2 mg/dL (Normal) Range: 0.2-1.0 Bilirubin Negative (Normal) Occult Blood Negative (Normal) Ketones Negative (Normal) Glucose Negative (Normal) Protein Negative (Normal) WBC Esterase Negative (Normal) Appearance Clear (Normal) Urine-Color Yellow (Normal) pH 6.0 (Normal) Range: 5.0-7.5 Specific [place] 1.013 (Normal) Range: 1.005-1.030 :13 CBC, Platelets & Auto Comments: PATIENT WAS FASTINGPERFORMED BY: [id number] [facility] [id number] Information: [id number] Diff (93559) Immature Grans (Abs) 0.0 {x10E3/uL} (Normal) Range: [...] 3.77-5.28 WBC 8.4 {x10E3/uL} (Normal) Range: 3.4-10.8 52-Xnc-625609:13 Metabolic Panel, Comprehensive Comments: PATIENT WAS FASTINGPERFORMED BY: [facility] [id number] (80035) ALT (SGPT) 14 [iU]/L (Normal) Range: 0-32 [...] 8-27 Glucose 96 mg/dL (Normal) Range: 65-99 70-Doe-736489:13 LIPID PANEL (61097) Comments: PATIENT WAS FASTINGPERFORMED BY: [facility] [id number] LDL/HDL Ratio 2.6 {ratio} (Normal) Range: 0.0-3.2 Comments: LDL/HDL Ratio Men Women 1/2 Avg.Risk 1.0 1.5 Av g.Risk 3.6 3.2 2X Avg.Risk 6.2 5.0 3X Avg.Risk 8.0 6.1 LDL Cholesterol Calc 187 mg/dL (Abnormal) Range: 0-99 VLDL Cholesterol Anoop 30 mg/dL (Normal) Range: 5-40 HDL Cholesterol 71 mg/dL (Normal) Triglycerides 150 mg/dL (Abnormal) Range: 0-149 Cholesterol, Total 288 mg/dL (Abnormal) Range: 100-199 17-Mns-593355:13 CALCIFEDIOL (87760) Comments: PATIENT WAS FASTINGPERFORMED BY: [place] [id number] Vitamin D, 25-Hydroxy 22.6 ng/mL (Abnormal) Range: 30.0-100.0 Comments: Vitamin D deficiency has been defined by the [place] ofMedicine and an Endocrine Society practice guideline as alevel of serum 25-OH vitamin D less than 20 ng/mL (1,2).The Endocrine Society went on to further define vitamin Dinsufficiency as a level between 21 and 29 ng/mL (2).1. IOM ([place] of Medicine). 2010. Dietary reference intakes for calcium and D. [place]: The National AcademZiliko Press.2. Tammy MF, Dav NC, Armida HALEY, et al. Evaluation, treatment, and prevention of vitamin D deficiency: an Endocrine Society clinical practice guideline. JCEM. 2010; 96(7):1911-30. 13-Hnt-867632:13 TSH (THYROID STIMULATING Comments: PATIENT WAS FASTINGPERFORMED BY: [facility] [id number] [facility] [id number]; OV 01/26 HORMONE) (52454) TSH 2.950 {uIU/mL} (Normal) Range: 0.450-4.500 Plan [...] Eprescribed prescriptions (G8553) Indication: Hypothyroid Planned Observations ANGTENSIN 1-CONVRT ENZYM (26179)Indication: Pain in unspecified joint (Renamed from Joint pain) On: :05 Request Lyme Disease Antibody W/ Reflex ([id number])Indication: Pain in unspecified joint (Renamed from Joint pain) On: : Request CCP ANTIBODY ([id number])Indication: Pain in unspecified joint (Renamed from Joint pain) On: : Request SED RATE ERYTHROCYTE ([id number])Indication: Pain in unspecified joint (Renamed from Joint pain) On: : Request C-REACTIVE PROTEIN ([id number])Indication: Pain in unspecified joint (Renamed from Joint pain) On: : Request TSH ([id number])Indication: Pain in unspecified joint (Renamed from Joint pain) On: : Request RHEUMATOID FACTOR-QUANT ([id number])Indication: Pain in unspecified joint (Renamed from Joint pain) On: : Request TOMI (ANTINUCLEAR ANTIBODY) ([id number])Indication: Pain in unspecified joint (Renamed from Joint pain) On: : Request METABOLIC PANEL, COMPREHENSIVE ([id number])Indication: Pain in unspecified joint (Renamed from Joint pain) On: : Request CBC with auto diff ([id number])Indication: Pain in unspecified joint (Renamed from Joint pain) On: : Request Metabolic Panel, Comprehensive ([id number])Indication: Hypercholesteremia On: 8-Ntx-380602:03 Request Comments: Apr 2018 LIPID PANEL ([id number])Indication: Hypercholesteremia On: 5-Hpv-348595:03 Request Comments: Apr 2018 Planned Encounters Medical; 2 Week FU - On: 20-Jul-2018 11:15 [facility] Martha PIEDRA, Amy Norwood CNP Planned Procedures Radiology - Lumbar SpineBy: Martha PIEDRA, On: 09-Jul-2018 Intent Amy Norwood CNP CTA OF CHEST WITHOUT CONTRAST THEN CTA On: 05-Feb-2018 Intent OF CHEST AND ABDOMEN WITH CONTRAST ([id number])By: Amy Thomas CNP, CNP, Mary E DEXA SCAN AXIAL SKELETON ([id number])By: On: 30-Jan-2018 Intent Amy Thomas CNP, CNP Irina SCREENING DIGITAL TOMOSYNTHESIS OF On: 30-Jan-2018 Intent BREAST ([id number])By: Amy Thomas CNP, CNP, Mary E CT SCAN OF ABDOMEN AND PELVIS WITH On: 16-Jan-2018 Intent CONTRAST ([id number])By: Amy Thomas CNP Comments: hernia vs colon issue vs other Amy Thomas CNP Ultrasound - Abdomen CompleteBy: Martha On: 11-Jan-2018 Intent DOROTHEA IrinaAmy King CNP DEXA SCAN AXIAL SKELETON ([id number])By: On: 11-Jan-2018 Intent Amy Thomas CNP, CNP, Mary E SCREENING DIGITAL TOMOSYNTHESIS OF On: 11-Jan-2018 Intent BREAST ([id number])By: Amy Thomas CNP, CNP, Mary E Instructions [...] Instructions Indication: Hypothyroid Encounters Office Visit On: 09-Jul-2018 10:30 Encounter Reason: [...] Current smoker, BMI 20.0-20.9, adult, Hypothyroid, End: 7-Aug-2018 14:15 Vitamin D deficiency, Hypercholesteremia, Encounter for [...] exam: Saw Dr. Dsouza in pat at [facility]. Pt has flor, [ADDITIONAL REASON] Hernia, Incisional [...] back ache [facility] Payers Flor/My Summer Ceja; a guarantor
--- OUTSIDE RECORDS SUMMARY | 2018-09-15 07:33 | XMS RPT_ITS | Continuity of Care Document ---
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, Amy Mcdaniel Start : 09-Jul-2018 Active Levothyroxine [...] 60 MG/ML Subcutaneous Solution 1 (one) Milliliter [id number] for 0 days Quantity: 1 {Milliliter} Refills: 0 Ordered:11-Jul-2018 Martha PIEDRA Amy Boo CNP Amy Mcdaniel Start : 11-Jul-2018 Active Prolia 60 MG/ML Subcutaneous Solution 1 (one) Milliliter o5xfraby for 0 days Quantity: 1 {Syringe} Refills: [...] 4 Views Result: Comments: See Note; NOTES: [facility] Imaging Services [address] [place] [address] L/S Spine Min 4 Views MR#: [id number] Acct: [id number] Name: YANELY CEJA Rep #: [id number] : 1955 F 62 From: Eric Trejo DO PCP: Amy Thomas NP Status: REG CLI Study: L/S Spine Min 4 Views Date of Exam: 07/09/18 Exam# [id number] Ordering Dr: Amy Thomas 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 STUDY: X-RAY - LUMBAR SPINE REASON FOR [...] Service support , CC: Amy Thomas NP Microbiological Analyst: Signed 09-Jul-2018 L/S Spine Min 4 Views Result: Comments: See Note; NOTES: [facility] Imaging Services [address] [place] [address] L/S Spine Min 4 Views MR#: [id number] Acct: [id number] Name: YANELY CEJA Rep #: [id number] : 1955 F 62 From: Eric Trejo PCP: Amy Thomas NP Status: REG CLI Study: L/S Spine Min 4 Views Date of Exam: 07/09/18 Exam# [id number] Ordering Dr: Amy Thomas 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 STUDY: X-RAY - LUMBAR SPINE REASON FOR [...] Service support , CC: Amy Thomas NP Microbiological Analyst: Signed 22-Feb-2018 Dexa Bone Density Study Result: Comments: See Note; NOTES: [facility] Imaging Services [address] [place] [address] Dexa Bone Density Study MR#: [id number] Acct: [id number] Name: YANELY CEJA Rep #: [id number] : 1955 F 62 From: Sergey Walsh MD PCP: Amy Thomas NP Status: REG CLI Study: Dexa Bone Density Study Date of Exam: 02/22/18 Exam# [id number] Ordering Dr: Amy Thomas STUDY: DUAL ENERG [...] Sergey Walsh MD at 15:25 EDT Tel [phone], Service support , CC: Amy Thomas NP Microbiological Analyst: Signed 22-Feb-2018 SCREENING MAMM (CAD), BILAT Result: Comments: See Note; NOTES: [facility] Imaging Services [address] [place] [address] SCREENING MAMM (CAD), BILAT MR#: [id number] Acct: [id number] Name: YANELY CEJA Rep #: [id number] : 1955 F 62 From: Sergey Walsh MD PCP: Amy Thomas NP Status: REG CLI Study: SCREENING MAMM (CAD), BILAT Date of Exam: 02/22/18 Exam# [id number] Ordering Dr: Amy Thomas MAMMOGRAP HY - [...] delay biopsy of a clinically suspicious abnormality. [id number] Electronically Signed: Sergey Walsh MD at 12:57 EDT Tel [phone], Service support [phone], CC: Amy Thomas NP Microbiological Analyst: Signed Family History Unknown Family Member Name Dates Details Mother Comments: Melanoma Status: Active Sister 1 Comments: Lung cancer Status: Active Social History Name Dates Details Alcohol use: Non Drinker / No Alcohol Use. Status: Active Tobacco use: Current every day smoker. Status: Active Smoking Status Name Dates Details Current every day smoker Vital Signs Date Test Result Details 91-Tuo-989749:30 Temperature 97.9 f Comments: Method: Temporal Pulse [...] kg/m2 Body Surface Area Calculated 1.49 m2 45-Uhi-484260:31 Temperature 97.2 f Comments: Method: Temporal Pulse [...] 1.49 m2 Results Date Description Value Details 47-Mbd-796083:32 ANGTENSIN 1-CONVRT ENZYM Comments: PATIENT NOT FASTINGPERFORMED BY: [place] [id number] [facility] [id number] BY: [address] [id number] (25057) TIMMY 36 U/L (Normal) Range: 14-82 83-Oel-509156:32 Lyme Disease Antibody W/ Comments: PATIENT NOT FASTINGPERFORMED BY: [address] [id number] BY: [address] [id number] Reflex ([id number]) Lyme IgG/IgM Ab <0.91 {ISR} (Normal) Range: 0.00-0.90 Comments: Negative <0.91 Equivocal 0.91 - 1.09 Positive >1.09 83-Uwe-009083:32 CCP ANTIBODY (81825) Comments: PATIENT NOT FASTINGPERFORMED BY: [place] [id number] [facility] [id number] BY: [address] [id number] CCP Antibodies IgG/IgA 4 {units} (Normal) Range: 0-19 Comments: Negative <20 Weak positive 20 - 39 Moderate positive 40 - 59 Strong positive >59 04-Ivi-015242:32 SED RATE ERYTHROCYTE Comments: PATIENT NOT FASTINGPERFORMED BY: [address] [id number] BY: [address] [id number] (76757) Sedimentation Rate-Westergren 3 mm/h (Normal) Range: 0-40 88-Zha-496633:32 C-REACTIVE PROTEIN Comments: PATIENT NOT FASTINGPERFORMED BY: [address] [id number] BY: [address] [id number] (73406) C-Reactive Protein, Quant 0.4 mg/L (Normal) Range: 0.0-4.9 17-Bck-291607:32 TSH (66551) Comments: PATIENT NOT FASTINGPERFORMED BY: [facility] [place] [id number] [facility] [id number] BY: [address] [id number] TSH 2.230 {uIU/mL} (Normal) Range: 0.450-4.500 77-Tzu-540378:32 RHEUMATOID FACTOR-QUANT Comments: PATIENT NOT FASTINGPERFORMED BY: [facility] [place] [id number] [facility] [id number] BY: [address] [id number] (93163) RA Latex Turbid. <10.0 {IU/mL} (Normal) Range: 0.0-13.9 51-Zvp-295046:32 OTMI (ANTINUCLEAR ANTIBODY) Comments: PATIENT NOT FASTINGPERFORMED BY: [facility] [place] [id number] [facility] [id number] BY: [address] [id number] (53230) TOMI Direct Negative (Normal) 73-Uxc-153693:32 METABOLIC PANEL, Comments: PATIENT NOT FASTINGPERFORMED BY: [facility] [id number] [facility] [id number] BY: [address] [id number] COMPREHENSIVE (76394) ALT (SGPT) 12 [iU]/L (Normal) Range: 0-32 [...] 8-27 Glucose 90 mg/dL (Normal) Range: 65-99 94-Tmd-554856:32 CBC with auto diff Comments: PATIENT NOT FASTINGPERFORMED BY: CB [facility] Kfkygo9791 [facility] [id number] BY: BN [facility] Ntorycdtbh7564 [facility] [id number] (88893) Immature Grans (Abs) 0.0 {x10E3/uL} (Normal) Range: [...] 3.77-5.28 WBC 7.7 {x10E3/uL} (Normal) Range: 3.4-10.8 13-Fve-403721:13 URINALYSIS (41708) Comments: PATIENT WAS FASTINGPERFORMED BY: [facility] [id number] Microscopic Examination MICNIP (Normal) Comments: Microscopic not indicated and not performed. Nitrite, Urine Negative (Normal) Urobilinogen,Semi-Qn 0.2 mg/dL (Normal) Range: 0.2-1.0 Bilirubin Negative (Normal) Occult Blood Negative (Normal) Ketones Negative (Normal) Glucose Negative (Normal) Protein Negative (Normal) WBC Esterase Negative (Normal) Appearance Clear (Normal) Urine-Color Yellow (Normal) pH 6.0 (Normal) Range: 5.0-7.5 Specific [place] 1.013 (Normal) Range: 1.005-1.030 32-Czj-936655:13 CBC, Platelets & Auto Comments: PATIENT WAS FASTINGPERFORMED BY: [facility] CampusLnpxii0978 [facility] [id number] Information: [id number] Diff (67890) Immature Grans (Abs) 0.0 {x10E3/uL} (Normal) Range: [...] 3.77-5.28 WBC 8.4 {x10E3/uL} (Normal) Range: 3.4-10.8 59-Ftd-940503:13 Metabolic Panel, Comprehensive Comments: PATIENT WAS FASTINGPERFORMED BY: [facility]Co[facility] CampusNikjhy5746 [facility] [id number] (16496) ALT (SGPT) 14 [iU]/L (Normal) Range: 0-32 [...] 8-27 Glucose 96 mg/dL (Normal) Range: 65-99 24-Jgg-418964:13 LIPID PANEL (81625) Comments: PATIENT WAS FASTINGPERFORMED BY: [facility] Sntlrq8367 [facility] [id number] LDL/HDL Ratio 2.6 {ratio} (Normal) Range: 0.0-3.2 Comments: LDL/HDL Ratio Men Women 1/2 Avg.Risk 1.0 1.5 Av g.Risk 3.6 3.2 2X Avg.Risk 6.2 5.0 3X Avg.Risk 8.0 6.1 LDL Cholesterol Calc 187 mg/dL (Abnormal) Range: 0-99 VLDL Cholesterol Anoop 30 mg/dL (Normal) Range: 5-40 HDL Cholesterol 71 mg/dL (Normal) Triglycerides 150 mg/dL (Abnormal) Range: 0-149 Cholesterol, Total 288 mg/dL (Abnormal) Range: 100-199 25-Fop-793165:13 CALCIFEDIOL (70591) Comments: PATIENT WAS FASTINGPERFORMED BY: [facility] CampusHmychq5488 [facility] [id number] Vitamin D, 25-Hydroxy 22.6 ng/mL (Abnormal) Range: 30.0-100.0 Comments: Vitamin D deficiency has been defined by the [place] of[employer]icine and an Endocrine Society practice guideline as alevel of serum 25-OH vitamin D less than 20 ng/mL (1,2).The Endocrine Society went on to further define vitamin Dinsufficiency as a level between 21 and 29 ng/mL (2).1. IOM ([place] of [employer]). 2010. Dietary reference intakes for calcium and D. [place]: The National Academies Press.2. Tammy MF, Dav [place], Armida HALEY, et al. Evaluation, treatment, and prevention of vitamin D deficiency: an Endocrine Society clinical practice guideline. JCEM. 2010; 96(7):1911-30. 65-Ren-271115:13 TSH (THYROID STIMULATING Comments: PATIENT WAS FASTINGPERFORMED BY: [facility]Co[facility] CampusYtfbkf4781 In[facility] [id number]; OV 01/26 HORMONE) (11065) TSH 2.950 {uIU/mL} (Normal) Range: 0.450-4.500 Plan [...] Indication: Hypothyroid Planned Observations Metabolic Panel, Comprehensive (66120)Indication: Hypercholesteremia On: 4-Wec-261664:03 Request Comments: Apr 2018 LIPID PANEL (56774)Indication: Hypercholesteremia On: 1-Sez-297184:03 Request Comments: Apr 2018 Planned Encounters Medical; [...] Intent OF CHEST AND ABDOMEN WITH CONTRAST (20221)By: Amy Thomas CNP, CNP, Mary E DEXA SCAN AXIAL SKELETON (60183)By: On: 30-Jan-2018 Intent Amy Thomas CNP, CNP, Mary E SCREENING DIGITAL TOMOSYNTHESIS OF On: 30-Jan-2018 Intent BREAST (81500)By: Amy Thomas CNP, CNP, Mary E CT SCAN OF ABDOMEN AND PELVIS WITH On: 16-Jan-2018 Intent CONTRAST (73848)By: Amy Thomas CNP Comments: hernia vs colon issue vs other Amy Thomas CNP Ultrasound - Abdomen CompleteBy: Martha On: 11-Jan-2018 Intent Amy PIEDRA CNP, Mary E DEXA SCAN AXIAL SKELETON (53528)By: On: 11-Jan-2018 Intent Amy Thomas CNP, CNP, Mary E SCREENING DIGITAL TOMOSYNTHESIS OF On: 11-Jan-2018 Intent BREAST (25229)By: Amy Thomas CNP, CNP, Mary E Instructions [...] Hypothyroid : Patient Instructions Indication: Hypothyroid Encounters Review On: 11-Jul-2018 11:17 [facility] Office Visit On: 11-Jul-2018 10:29 Encounter Reason: [...] exam: Saw Dr. Dsouza in pat at [facility]. Pt has flor, [ADDITIONAL REASON] Hernia, Incisional [...]
--- OUTSIDE RECORDS SUMMARY | 2018-09-15 07:34 | XMS RPT_ITS ---
:1955 Author Organization OHIP Care Team Providers Name Role Phone ARASH ROMAN DO Attending Unavailable ARASH ROMAN DO Primary Care Unavailable ARASH ROMAN DO Attending Unavailable ARASH ROMAN DO Primary Care Unavailable LAURENT ISRAEL MD Attending Unavailable ARASH ROMAN DO Primary Care Unavailable ARASH ROMAN DO Attending Unavailable ARASH ROMAN DO Primary Care Unavailable Amy Thomas Attending Unavailable Amy Thomas Referring Unavailable Amy Thomas Consulting Unavailable Amy Thomas Attending Unavailable Ciesa, Amy Referring Unavailable CiesaAmy Primary Care Unavailable Cieskwaku, Amy Attending Unavailable Cieskwaku, Amy Referring Unavailable Cieskwaku, Amy Primary Care Unavailable Cieskwaku, Amy Attending Unavailable Ciesa, Amy Referring Unavailable Cieskwaku, Amy Primary Care Unavailable Cieskwaku, Amy Attending Unavailable Beatriceeskwaku, Amy Referring Unavailable BeatriceesAmy ames Primary Care Unavailable Beatriceeskwaku, Amy Attending Unavailable Beatriceeskwaku, Amy Referring Unavailable Cieskwaku, Amy Primary Care Unavailable Ciesa, Amy Attending Unavailable Ciesa, Amy Referring Unavailable Beatriceeskwaku, Amy Primary Care Unavailable PROBLEMS PROBLEMS DATE TYPE CONDITION / CODE ATTENDING STATUS SOURCE 07/11/2018 Unknown M54.2 - Amy Thomas Active [facility] M54.2(ICD-10) Hospital Repository 08/11/2017 Admitting Hypothyroidism, ROMAN DO, Active [facility] Diagnosis unspecified / ARASH [facility] E03.9(ICD-10) Repository PROCEDURES PROCEDURES No Procedure Records FoundRESULTS RESULTS CERV SPINE 4 OR 5 Observed: 07/11/2018 Status: F Source: [place] VIEWS 11:25 AM [facility] REPOSITORY [facility] Imaging Services [address] [place] [address] Cerv Spine 4 or 5 Views MR#: [id number] Acct: [id number] Name: YANELY CEJA Rep #: [id number] : 1955 F 62 From: Cuauhtemoc Maxwell MD PCP: Amy Thomas NP Status: REG CLI Study: Cerv Spine 4 or 5 Views Date of Exam: 07/11/18 Exam# [id number] Ordering Dr: Amy Thomas [employer] TECHNICIAN-C STUDY: X-RAY - CERVICAL SPINE REASON FOR EXAM: Female, 62 years old. Posterior neck pain radiating into arms x2 years TECHNIQUE: 6 view(s) of the cervical spine were obtained. COMPARISON: None FINDINGS: Normal anterior atlantoaxial articulation. Normal odontoid process. Normal cervical lordosis. There is endplate spondylosis of C6 and C7. There is mild narrowing of the C5-6 and C6-7 disc spaces. There is bilateral foraminal narrowing at the C5-6 and C6-7 levels. The soft tissue structures are unremarkable. RAD/Cerv Spine 4 or 5 Views IMPRESSION: Degenerative changes of the lower cervical spine as detailed above. There is no evidence of fracture or subluxation. Electronically Signed: Cuauhtemoc Maxwell MD at 22:24 EST , Service support , CC: Amy Thomas NP Gastroenterology Physician: Signed L/S SPINE MIN 4 Observed: 07/09/2018 Status: F Source: [place] VIEWS 11:51 AM [facility] REPOSITORY [facility] Imaging Services [address] [place] [address] L/S Spine Min 4 Views MR#: [id number] Acct: [id number] Name: YANELY CEJA Rep #: [id number] : 1955 F 62 From: Eric Trejo DO PCP: Amy Thomas NP Status: REG CLI Study: L/S Spine Min 4 Views Date of Exam: 07/09/18 Exam# [id number] Ordering Dr: Amy Thomas NP-Marisela STUDY: X-RAY - LUMBAR SPINE REASON FOR EXAM: Female, 62 years old. Pain. TECHNIQUE: 5 view(s) of the lumbar spine were obtained. COMPARISON: None FINDINGS: Normal lumbar lordosis. There is no substantial scoliosis. There is a normal alignment of the vertebrae. There is generalized demineralization of the vertebral bodies. Normal disc space heights. Lower lumbar facet arthropathy is present. The soft tissue structures are unremarkable. RAD/L/S Spine Min 4 Views IMPRESSION: Diffuse demineralization with no evidence of malalignment or compression deformity. Electronically Signed: Eric Trejo DO at 22:45 EST , Service support , CC: Amy Thomas NP Gastroenterology Physician: Signed SCREENING MAMM (CAD), Observed: 02/22/2018 Status: F Source: [place] 11:00 AM [facility] REPOSITORY [facility] Imaging Services [address] [place] [address] SCREENING MAMM (CAD), BILAT MR#: [id number] Acct: [id number] Name: YANELY CEJA Rep #: [id number] : 1955 F 62 From: Sergey Walsh MD PCP: Amy Thomas NP Status: REG CLI Study: SCREENING MAMM (CAD), BILAT Date of Exam: 02/22/18 Exam# [id number] Ordering Dr: Amy Thomas MAMMOGRAPHY - BILATERAL SCREENING REASON FOR EXAM: Female, 62 years old. Routine annual screening examination. PERTINENT HISTORY: Non-contributory. TECHNIQUE: Digital bilateral breast aron (3D mammographic acquisition) in the CC and MLO projections. 2-D mediolateral oblique (MLO) and craniocaudad (CC) views of both breasts were obtained. CAD: Full Field Digital Mammography with Computer Added Detection was performed. COMPARISON: Comparison is made with prior examination of April 22, 2014. FINDINGS: Breast Composition: There are scattered areas of fibroglandular density. There are no dominant masses or suspicious calcifications. No other significant abnormalities are identified. There has been no significant change since the prior study. BI/SCREENING MAMM (CAD), BILAT IMPRESSION: Stable bilateral screening mammogram. Yearly follow-up mammogram recommended. (A) ASSESSMENT CATEGORY: BIRADS Category 1: Negative. A letter regarding these results will be sent to the patient by the facility within 30 days. Approximately 10% of breast cancers are not detected by mammography. A normal mammogram should not delay biopsy of a clinically suspicious abnormality. [id number] Electronically Signed: Sergey Walsh MD at 12:57 EDT Tel [phone], Service support , CC: Amy Thomas NP Gastroenterology Physician: Signed DEXA BONE DENSITY Observed: 02/22/2018 Status: F Source: [place] STUDY 11:00 AM [facility] REPOSITORY [facility] Imaging Services [address] [place] [place] [address] Dexa Bone Density Study MR#: [id number] Acct: [id number] Name: YANELY CEJA Rep #: [id number] : 1955 F 62 From: Sergey Walsh MD PCP: Amy Thomas NP Status: REG CLI Study: Dexa Bone Density Study Date of Exam: 02/22/18 Exam# [id number] Ordering Dr: Amy Thomas STUDY: DUAL ENERGY X-RAY ABSORPTIOMETRY / DXA REASON FOR EXAM: Female, 62 years old. The patient is postmenopausal. Loss of height. TECHNIQUE: Bone Mineral Density (BMD) measurements of lumbar spine and bilateral hips were obtained. COMPARISON: None. FINDINGS: Lumbar Spine (L1-L4): g/cm2 (0.791) / T-score (-3.2) / Z-score (-1.8) Findings are suggestive of osteoporosis with a high fracture risk. Left Femur Total: g/cm2 (0.653) / T-score (-2.8) / Z- score (-1.7) Left Femoral Neck: g/cm2 (0.590) / T-score (-3.2) / Z- score (-1.8) Right Femur Total: g/cm2 (0.618) / T-score (-3.1) / Z- score (-2.0) Right Femoral Neck: g/cm2 (0.5-3) / T-score (-3.7) / Z-score (-2.3) BD/Dexa Bone Density Study IMPRESSION: The patient is considered osteoporotic as outlined below according to World Nav Organization (WHO) criteria with a high fracture risk. Reference Information: The T-score is the number of standard deviations above or below the standard which is normal for young adults at their peak bone mineral density. The World Health Organization (WHO) interprets the T-scores as follows: Above -1 Normal bone density Between -1 and -2.5 Osteopenia Equal to / or below -2.5 Osteoporosis As a practical clinical guideline, osteopenia may be graded as follows: Mild -1 through -1.5 Moderate -1.6 through -2.0 Severe -2.1 through -2.4 The Z-score is the number of standard deviations above or below age-matched controls. A Z-score of less than -1.5 would be considered abnormal. References: 1. NIH Osteoporosis and Related Bone Diseases http://www.osteo.org 2. International Society for Clinical Densitometry http://www.iscd.org 3. National Osteoporosis Foundation http://www.nof.org Electronically Signed: Sergey Walsh MD at 15:25 EDT Tel [phone], Service support , CC: Amy Thomas NP Gastroenterology Physician: Signed XR SPINE LUMBAR Observed: 01/02/2018 Status: F Source: [place] W/[place] 4 VIEWS 10:42 AM [facility] REPOSITORY ORIGINAL XR SPINE LUMBAR W/OBLIQUES 4 VIEWS CLINICAL STATEMENT: CHRONIC BILATERAL LOW BACK PAIN WITH BILATERAL SCIATICA. COMPARISON: 05/29/2014 FINDINGS: 5 lumbar type vertebral bodies are again seen in normal alignment. Vertebral body heights are maintained. There is mild disc space narrowing at L4-L5. Mild degenerative changes seen at the facet joints at L5-S1. The sacroiliac joints are normal in appearance. Surgical clips are seen within the RIGHT hemiabdomen. IMPRESSION: No compression deformity or significant listhesis. Degenerative changes. Interpreted By: Julianne Gutierrez MD Preliminary Report By: Julianne Gutierrez MD Electronically Signed By: Julianne Gutierrez MD Dictated Date: 01/02/2018 11:51:49 AM Prelim Date: 01/02/2018 11:51:49 AM Sign Date: 01/02/2018 11:53:10 AM XR SACRUM/COCCYX MINIMUM Observed: 01/02/2018 Status: F Source: [place] 2 VIEWS 10:42 AM [facility] REPOSITORY ORIGINAL XR SACRUM/COCCYX MINIMUM 2 VIEWS CLINICAL STATEMENT: CHRONIC BILATERAL LOW BACK PAIN WITH BILATERAL SCIATICA COMPARISON: None FINDINGS:No acute fracture is identified. The bones are osteopenic. No osseous lesion identified. The sacroiliac joints are maintained. The hip joints are maintained. IMPRESSION:No acute process. Interpreted By: Julianne Gutierrez MD Preliminary Report By: Julianne Gutierrez MD Electronically Signed By: Julianne Gutierrez MD Dictated Date: 01/02/2018 10:56:32 AM Prelim Date: 01/02/2018 10:56:32 AM Sign Date: 01/02/2018 10:57:42 AM LIPID Collected: 08/17/2017 Status: F Source: [place] [employer] 9:23 AM [facility] REPOSITORY TYPE CODE TESTS RESULT OUT OF REFERENCE UNITS RANGE LAB CHOL(LOINC 131-200 mg/dL ) Cholesterol High 264 Result Comment: Cholesterol Reference Interval: Less than 200 Desirable 200-239 Borderline high risk 240 and above High risk LAB TRIG(LOINC) 40-150 mg/dL Triglycerides 139 Result Comment: Triglyceride Reference Interval: Less than 150 Normal 150-199 Borderline high risk 200-499 High risk 500 or higher Very high risk LAB HD(LOINC) 35-90 mg/dL HDL Cholesterol 81 Result Comment: HDL Reference Interval: Less than 40 Low - high risk 60 or above Optimal/lowers risk LAB LDL(LOINC) 0-130 mg/dL LDL High Cholesterol 155 Result Comment: LDL is a calculated result and requires a 12-hr fast. LDL Reference Interval: Less than 100 Optimal 100-129 Near or above optimal 130-159 Borderline high risk 160-189 High risk 190 and above Very high risk Performed By: #### LIPID #### [facility] [place] [address] [place], [place] [address] TSH Collected: 08/11/2017 Status: F Source: [facility] 2:55 PM [facility] REPOSITORY TYPE CODE TESTS RESULT OUT OF RANGE REFERENCE UNITS LAB TSH(LOINC) 0.27-4.20 mcIU/mL TSH 3.13 Performed By: #### TSH #### [facility] [place] [address] [place], [place] [address] ALLERGIES ALLERGIES DATE TYPE / CODE NAME / CODE REACTION SEVERITY SOURCE 05/27/2014 Drug No Known Unknown [facility] Allergy/4160 Allergies/F00 Hospital 49991(SNOMED 2002363(RXNOR Repository CT) M) ENCOUNTERS ENCOUNTERS ADMIT/DISCHARGE ACCOUNT NUMBER ADMITTING ENCOUNTER LOCATION SOURCE CLASS 07/11/2018 [id number] [facility] ding:MTRAD Repository 07/11/2018 [id number] Ambulatory Building:[facility] [place] Practices Repository 07/09/2018 [id number] Ambulatory [facility] ding:HPRAD Repository 02/22/2018 [id number] Ambulatory [facility] ding:OPBD Repository 02/21/2018 [id number] Ambulatory [facility] ding:CT Repository 01/26/2018 [id number] Ambulatory [facility] ding:CT Repository 01/16/2018 [id number] Ambulatory [facility] ding:US Repository 01/02/2018/01/03/20 [id number] Ambulatory [address] ding:[facility] Repository 12/22/2017/12/23/19 [id number] Emergency BBuilding:[address] Repository 08/17/2017/08/21/19 [id number] Ambulatory [address] ding:[facility] [facility] Repository 08/11/2017/08/15/19 [id number] Ambulatory [address] ding:[facility] Repository PAYERS PAYERS ENCOUNTER GUARANTOR PAYER SUBSCRIBER SOURCE 07/11/2018 YANELY MATTSON Primary YANELY OLIVIAB: Farley [address] Insurance:MYCARE CRSC [id number] [facility] [address], [place] *[place] [facility] [address]Yeg: (330) Number: Repository [phone] () [id number] Date:6072-24-26PUZD CLAIMS [address] [place] [address]NP: 07/11/2018 Secondary NOT GIVENUNK [place] Insurance:SELF PAY [facility] Number: Effective Repository Date:2018-07-11 07/11/2018 Yanely BallDOB: Primary Yanely BallDOB: [place] Practices Insurance:[employer]/ [id number] [address] [facility] apt [place], [place] Number: [address] [place] [address]Hnr: (047) [id number] [id number]: () Date:7463-20-90Hwyh [phone] () Name:[address] [place] [address] [id number]: 07/11/2018 Secondary Yanely BallDOB: [facility]IP Practices Insurance:MedicarePol [id number] Repository icy Number: [id number], [place] Date:2016-06-26 [address]Sca: [id number] [phone] () Name:REIMBURSEMENT CONSULTANT [address], [place] [address]ZJ: 07/09/2018 YANELY [id number] Primary YANELY BALLDOB: Dorys [address] Insurance:MYCARE CRS [id number] [facility] [address], [place] [facility] [address]Hcr: (330) Number: Repository [phone] () [id number] Date:4290-23-91DOVN CLAIMS [address], [place] [address]IH: 07/09/2018 Secondary NOT GIVENUNK [place] Insurance:SELF PAY [facility] Number: Effective Repository Date:2018-07-09 02/22/2018 YANELY [id number] Primary YANELY BALLDOB: Farley [address] Insurance:MYCARE [facility] [id number] *[place] [facility] [address]Ctg: (330) Number: Repository [phone] () [id number] Date:4917-70-31NEOM CLAIMS [address], [place] [address]AN: 02/22/2018 Secondary NOT GIVENUNK Dorys Insurance:SELF PAY [facility] Number: Effective Repository Date:2018-01-11 02/21/2018 YANELY [id number] Primary YANELY BALLDOB: Dorys [address] Insurance:MYCARE [facility] [id number] *[place] [facility] [address]Enr: (330) Number: Repository [phone] () [id number] Date:3194-24-78XLIG [address]S [address], [place] [address]TA: 02/21/2018 Secondary NOT GIVENUNK Farley Insurance:SELF PAY [facility] Number: Effective Repository Date:2018-02-06 01/26/2018 YANELY [id number] Primary YANELY BALLDOB: Farley [address] Insurance:MYCARE [facility] [id number] *IN [facility] [address]Kyr: (330) Number: Repository [phone] () [id number] Date:2803-11-07LIOY CLAIMS [address], [place] [address]XB: 01/26/2018 Secondary NOT GIVENUNK Farley Insurance:SELF PAY [facility] Number: Effective Repository Date:2018-01-16 01/16/2018 YANELY [id number] Primary YANELY BALLDOB: Farley [address] Insurance:MYCARE [facility] [id number] *IN [facility] [address]Fes: (330) Number: Repository [phone] (HP) [id number] Date:2261-84-51ZRIC CLAIMS [address] [address]ZF: 01/16/2018 Secondary NOT GIVENUNK Dorys Insurance:SELF PAY [facility] Number: Effective Repository Date:2018-01-11 01/02/2018 YANELY BALLDOB: Primary YANELY BALLDOB: [facility] Insurance:[facility]W [facility] [id number] [facility] Repository [address] [place] [address] DUALPolicy Number: [facility] [place] [address]Bmp: 330 [id number] [address]Pxd: Date:2018-01-02 [phone] (HP)Tel: [phone] (HP) (WP) Name:NATTN Claims 000-0000 (WP) [address] [address]WS: 12/22/2017 YANELY BALLDOB: Primary YANELY BALLDOB: [facility] [id number] [facility] Repository [address] [place] [address] DUALPolicy Number: [place] [address]Fnc: 330 [id number] [address]Qyu: Date:2017-12-22 [phone] (HP)Tel: [phone] (HP) (WP) Name:NATTN Claims 000-0000 (WP) [address] [address]AS: 08/17/2017 YANELY BALLDOB: Primary YANELY BALLDOB: [facility] Insurance:[employer] [id number] [facility] Rep[facility] [place] DUALPolicy Number: [place] [address]Ozf: 330 [id number] [address]Wyt: Date:2017-08-17 [phone] (HP)Tel: [phone] (HP) (WP) Name:NATTN Claims 000-0000 (WP) [address] [address]FS: 08/11/2017 YANELY BALLDOB: Primary YANELY BALLDOB: [facility] Insurance:[facility] [id number] [facility] Repository [place] DUALPolicy Number: [place] [address]Rfa: 330 [id number] [id number]: Date:2017-08-11 [phone] (HP)Tel: [phone] (HP) (WP) Name:NATTN Claims 000-0000 (WP) [address] [address]KO:
== END ==
PROVIDERS: Family Provider Nurse Practitioner; PCP Nurse Practitioner; Referring Provider Nurse Practitioner; Visit Provider Nurse Practitioner
DX: M54.2 Cervicalgia (principal)
CPT/HCPCS: 72050

== ENCOUNTER → 2018-08-24 08:52 | Outpatient (CLI) | payer MEDICARE, SELFPAY ==
--- NOTE | 2018-08-24 08:55 | VDLE_ITS ---
Reason For Study: PAIN RIGHT LEFT GSV is normal. GSV is normal. CFV is compressible, spontaneous, phasic, CFV is compressible, spontaneous, phasic, competent and demonstrates normal competent, and demonstrates normal augmentation. augmentation. FV is compressible, spontaneous, phasic, FV is compressible, spontaneous, phasic, competent and demonstrates normal competent and demonstrates normal augmentation. augmentation. POP V is compressible, spontaneous, phasic, POP V is compressible, spontaneous, phasic, competent and demonstrates normal competent and demonstrates normal augmentation. augmentation. T/P Trunk is compressible. T/P Trunk is compressible. PTV is compressible. PTV is compressible. RT PerV is compressible. LT PerV is compressible. Procedure Exam performed in department. A preliminary report was called and/or faxed to Amy Thomas. Interpretation Summary Deep veins of the lower extremities are bilaterally patent and compressible segmentally. There is no evidence of deep vein thrombosis on either side. Valvular competence appears intact within the proximal deep venous systems bilaterally. The greater saphenous veins appear bilaterally patent and compressible segmentally. Ordering Physician: Amy Thomas Referring Physician: Amy Thmoas Performed By: Leanne Pulliam, CONNOR, RVT
== END ==
PROVIDERS: Family Provider Nurse Practitioner; PCP Nurse Practitioner; Referring Provider Nurse Practitioner; Visit Provider Nurse Practitioner
DX: M79.604 Pain in right leg (principal); M79.605 Pain in left leg
CPT/HCPCS: 93970

== ENCOUNTER → 2019-05-31 11:34 | Outpatient (CLI) | payer MEDICARE, MEDICAID, SELFPAY ==
--- NOTE | 2019-05-31 11:37 | BI_ITS ---
MAMMOGRAPHY - BILATERAL SCREENING REASON FOR EXAM: Female, 63 years old. Routine annual screening examination. PERTINENT HISTORY: Non-contributory. TECHNIQUE: Digital bilateral breast mason (3D mammographic acquisition) in the CC and MLO projections. 2-D mediolateral oblique (MLO) and craniocaudad (CC) views of both breasts were obtained. CAD: Full Field Digital Mammography with Computer Added Detection was performed. COMPARISON: Comparison is made with prior examination dated February 22, 2018 and April 22, 2014. FINDINGS: Breast Composition: There are scattered areas of fibroglandular density. There are no dominant masses or suspicious calcifications. No other significant abnormalities are identified. There has been no significant change since the prior study. BI/SCREEN MAMM (CAD) W/MASON BILAT IMPRESSION: Stable bilateral screening mammogram. Yearly follow-up mammogram recommended. (A) ASSESSMENT CATEGORY: BIRADS Category 1: Negative. A letter regarding these results will be sent to the patient by the facility within 30 days. Approximately 10% of breast cancers are not detected by mammography. A normal mammogram should not delay biopsy of a clinically suspicious abnormality. [id number] Electronically Signed: Sergey Walsh, at 12:55 EST , Service support ,
== END ==
PROVIDERS: Family Provider Nurse Practitioner; PCP Nurse Practitioner; Referring Provider Nurse Practitioner; Visit Provider Nurse Practitioner
DX: Z12.31 Encounter for screening mammogram for malignant neoplasm of breast (principal)
CPT/HCPCS: 77063; 77067

== ENCOUNTER → 2019-08-07 12:17 | Outpatient (CLI) | payer MEDICARE, MEDICAID, SELFPAY ==
[2014-05-27 10:54] VITALS: BMI 19.5
--- NOTE | 2019-08-07 12:20 | RAD_ITS ---
STUDY: X-RAY - ABDOMEN/PELVIS REASON FOR EXAM: Female, 64 years old. ABD PAIN AND BLOATING. LOSS OF APPETITE AND WEIGHT LOSS TECHNIQUE: Single AP view of the abdomen / pelvis. COMPARISON: None. FINDINGS: Normal visualized lung bases. There is an unremarkable bowel gas pattern. There is no demonstrated free abdominal air. The visualized liver, spleen and kidneys are grossly normal in size and morphology. Surgical clips are seen in the right upper quadrant of the abdomen. Normal visualized osseous structures. RAD/Abdomen Single View IMPRESSION: Surgical clips seen in the right upper quadrant of the abdomen most likely associated with cholecystectomy. The bowel gas pattern is unremarkable. Electronically Signed: Cuauhtemoc Maxwell MD at 21:12 EST , Service support ,
== END ==
PROVIDERS: PCP Nurse Practitioner; Referring Provider Nurse Practitioner; Visit Provider Nurse Practitioner
DX: R10.9 Unspecified abdominal pain (principal)
CPT/HCPCS: 74018

== ENCOUNTER → 2019-12-11 11:58 | Outpatient (CLI) | payer MEDICARE, MEDICAID, SELFPAY ==
--- NOTE | 2019-12-11 12:02 | RAD_ITS ---
STUDY: X-RAY - THORACIC SPINE REASON FOR EXAM: Female, 64 years old. Mid/lower back pain TECHNIQUE: 3 view(s) of the thoracic spine were obtained. COMPARISON: None. FINDINGS: Normal kyphosis of the thoracic spine. There is no substantial scoliosis. There is multilevel endplate spondylosis of the thoracic vertebrae. There is multilevel disc space narrowing of the thoracic spine. The soft tissue structures are unremarkable. RAD/Thoracic Spine 3 Views IMPRESSION: Multilevel disc space narrowing and spondylosis. Electronically Signed: Sergey Walsh, at 15:36 EDT , Service support ,
--- NOTE | 2019-12-11 12:02 | RAD_ITS ---
STUDY: X-RAY - LUMBAR SPINE REASON FOR EXAM: Female, 64 years old. Lower back pain w/sciatica, no injury TECHNIQUE: 5 view(s) of the lumbar spine were obtained including oblique views. COMPARISON: None FINDINGS: Normal lumbar lordosis. There is no substantial scoliosis. There is a normal alignment of the vertebrae. Normal vertebral bodies and endplates. Mild degree of disc space narrowing at the L4-L5 and L5-S1 levels. Facet joint osteoarthritis There is atherosclerotic calcification of the abdominal aorta without a demonstrated aneurysm. Moderate amount of fecal material is seen. RAD/L/S Spine Min 4 Views IMPRESSION: Degenerative changes of the spine, as detailed above. Electronically Signed: Sergey Walsh, at 15:35 EDT , Service support ,
== END ==
PROVIDERS: PCP Nurse Practitioner; Referring Provider Nurse Practitioner; Visit Provider Nurse Practitioner
DX: M54.9 Dorsalgia, unspecified (principal)
CPT/HCPCS: 72072; 72110

== ENCOUNTER → 2022-09-21 | Outpatient (CLI) | payer MEDICARE, MEDICAID, SELFPAY ==
[2022-09-21 12:35] LABS: Absolute Lymphocyte Count 2.85 X10^3/uL (0.83-4.51); Absolute Neutrophil Count 3.8 X10^3/uL (2.0-7.7); Basophil# 0.04 X10^3/uL; Basophil% 0.5 % (0-1); Eosinophil# 0.12 X10^3/uL; Eosinophils% 1.6 % (0-5); Hematocrit 44.8 % (37-47); Hemoglobin 14.6 g/dL (12.0-15.0); Lymphocyte # 2.85 X10^3/ul (0.83-4.51); Lymphocyte % 38.8 % (19-41); Mean Corp Hgb Conc 32.6 g/dL (32-36); Mean Corpuscular Volume 104.2 fL (81-99); Mean Platelet Vol. 10.2 fl (6.2-12.0); Monocyte# 0.56 X10^3/uL; Monocyte% 7.6 % (0-10); NRBC Flagged by Analyzer 0 % (0-5); Neutrophil # 3.75 X10^3/uL (2.7-7.7); Neutrophil % 51.1 % (47-70); Platelet Count 271 K/mm3 (150-450); RBC Distribution Width CV 12.2 % (11.6-14.6); RBC Distribution Width SD 47.5 fl (35.1-43.9); White Blood Count 7.4 K/mm3 (4.4-11.0)
[2022-09-21 12:59] LABS: Vitamin B12 486 pg/mL (211-911)
[2022-09-21 13:18] LABS: ALB/GLOB Ratio 1.2 RATIO (0.9-2.4); AST(SGOT) 16 U/L (15-37); Alanine Aminotransfer ALT/SGPT 23 U/L (13-56); Albumin, Serum 3.8 g/dL (3.2-5.0); Alkaline Phosphatase 78 U/L (45-117); Anion Gap 5 (5-15); BUN 13 mg/dL (7-18); BUN/Creat Ratio 19.3 RATIO (10-20); Chloride 109 mmol/L (98-107); Cholesterol 268 mg/dL (200); Creatinine, Serum 0.67 mg/dL (0.55-1.02); EST Glomerular Filtration Rate 93 mL/min (>60); Est Glom Filt Rate - Afr Amer 112 mL/min (>60); Globulin 3.3 g/dL (2.2-4.2); Glucose 81 mg/dL (74-106); High Density Lipoprotein 77 mg/dL; Magnesium 2.3 mg/dL (1.6-2.6); Potassium 3.9 mmol/L (3.5-5.1); Protein, Total 7.1 g/dL (6.4-8.2); Sodium Level 138 mmol/L (136-145); Triglycerides 131 mg/dL; Very Low Density Lipoprotein 26 mg/dL (5-40)
== END | disposition home or self-care (01) ==
LOC: MFPLAB 11:04
PROVIDERS: PCP Family Medicine; Referring Provider Family Medicine; Visit Provider Family Medicine
DX: E03.9 Hypothyroidism, unspecified (principal); E78.5 Hyperlipidemia, unspecified; R25.2 Cramp and spasm
CPT/HCPCS: 36415; 80053; 80061; 82607; 82652; 83735; 84443; 85025

== ENCOUNTER → 2022-09-26 | Outpatient (CLI) | payer MEDICARE, MEDICAID, SELFPAY ==
--- NOTE | 2022-09-26 12:52 | US_ITS ---
EXAM: US SOFT TISSUES OF THE NECK CLINICAL INDICATION: R side of neck at base of jaw TECHNIQUE: Real-time ultrasound scan of the soft tissues of the neck with image documentation. This report was created using light report Brazzlebox technology. COMPARISON: None. FINDINGS: SOFT TISSUES: Unremarkable. No abscess. No foreign body. LYMPH NODES: Architecturally normal lymph node identified in the appropriate clinical setting of the right jaw/submandibular region, measuring 1.4 x 1.3 x 0.4 cm. OTHER FINDINGS: No other masses. US/Head/Neck Soft Tissue IMPRESSION: Architecturally normal lymph node identified in the appropriate clinical setting of the right jaw/submandibular region, measuring 1.4 x 1.3 x 0.4 cm. This is probably reactive and can be followed clinically. Electronically Signed: Juan Jose MD at 3:58 EDT ,
== END | disposition home or self-care (01) ==
LOC: US 12:51
PROVIDERS: PCP Family Medicine; Visit Provider Family Medicine
DX: R22.1 Localized swelling, mass and lump, neck (principal)
CPT/HCPCS: 76536

== ENCOUNTER → 2022-10-25 | Outpatient (CLI) | payer MEDICARE, MEDICAID, SELFPAY ==
--- NOTE | 2022-10-25 11:41 | CT_ITS ---
EXAM: CT CHEST WITHOUT INTRAVENOUS CONTRAST CLINICAL INDICATION: STAT- Cough and suspicion of cancer TECHNIQUE: Helically acquired images were obtained of the chest without intravenous contrast. This CT exam was performed using one or more of the following dose reduction techniques: automated exposure control, adjustment of the mA and/or kV according to patient size, and/or use of iterative reconstruction technique. COMPARISON: No relevant prior studies available. FINDINGS: LUNGS AND PLEURAL SPACES: Diffuse centrilobular pulmonary emphysema. Calcified granuloma noted within the left lower lobe. No mass. No pleural effusion or thickening. No pneumothorax. HEART: Horizontal size. Minimal coronary artery calcification. Heart size is normal. No pericardial effusion. MEDIASTINUM: Normal. No mediastinal or hilar adenopathy. Esophagus is unremarkable. No hiatal hernia. BONES/JOINTS: No suspicious lytic or blastic abnormality. VASCULATURE: No aortic aneurysm. CT/Chest without Contrast IMPRESSION: Diffuse centrilobular pulmonary emphysema. No acute cardiopulmonary abnormality. Electronically Signed: Sj Lyn MD at 13:14 EDT ,
== END | disposition home or self-care (01) ==
LOC: CT 11:40
PROVIDERS: PCP Family Medicine; Referring Provider Family Medicine; Visit Provider Family Medicine
DX: R06.02 Shortness of breath (principal)
CPT/HCPCS: 71250

== ENCOUNTER 2023-01-19 11:26 | Emergency (ER) | payer MEDICARE, MEDICAID, SELFPAY ==
[2023-01-19 11:27] VITALS: BP 107/77; PULSE 96; RESP 16; TEMP 37; O2SAT 99; BMI 21.1
--- NOTE | 2023-01-19 11:53 | EKG12_ITS ---
Test Reason : Blood Pressure : / mmHG Vent. Rate : 072 BPM Atrial Rate : 072 BPM P-R Int : 148 ms QRS Dur : 090 ms QT Int : 374 ms P-R-T Axes : 075 044 054 degrees QTc Int : 409 ms Normal sinus rhythm Normal ECG Confirmed by XI ELIAS, MARY ([id number]), food expeditor ARGELIA SWIFT ([id number]) on 01/20/2023 9:13:35 AM Referred By: JOEY Confirmed By:MARY LAYNE MD
--- NOTE | 2023-01-19 11:58 | NURSING ---
NO OLD EKGS
[2023-01-19 12:13] VITALS: BP 107/77; PULSE 80; RESP 12; TEMP 37; O2SAT 97
--- NOTE | 2023-01-19 12:15 | RAD_ITS ---
STUDY: X-RAY CHEST REASON FOR EXAM: Female, 67 years old. Anterior chest pain history of pulmonary nodule TECHNIQUE: PA and lateral views of the chest. COMPARISON: Comparison is made with prior study dated April 22, 2014. Comparison is made with prior CT scan of the chest dated October 25, 2022. FINDINGS: 3.7 mm rounded calcification in the lower right cervical region. This may represent carotid calcification. There is hyperinflation of the lungs consistent with chronic obstructive lung disease (COPD). There is no demonstrated pleural abnormality. Normal size heart. Normal mediastinum and joslyn. Normal visualized pulmonary arteries. Normal visualized aortic arch and descending thoracic aorta. Normal visualized thoracic spine. Normal visualized ribs, clavicles, and shoulders. There is no demonstrated abnormality of the visualized soft tissue structures of the upper abdomen. RAD/Chest PA and Lateral IMPRESSION: Hyperinflation. The lungs are clear. Electronically Signed: Sergey Walsh MD at 12:34 EDT ,
[2023-01-19 12:18] LABS: Absolute Lymphocyte Count 2.44 X10^3/uL (0.83-4.51); Absolute Neutrophil Count 3.4 X10^3/uL (2.0-7.7); Basophil# 0.04 X10^3/uL; Basophil% 0.6 % (0-1); Eosinophil# 0.12 X10^3/uL; Eosinophils% 1.8 % (0-5); Hematocrit 43.8 % (37-47); Hemoglobin 14.2 g/dL (12.0-15.0); Lymphocyte # 2.44 X10^3/ul (0.83-4.51); Lymphocyte % 37.3 % (19-41); Mean Corp Hgb Conc 32.4 g/dL (32-36); Mean Corpuscular Hgb 33.7 pg (27.0-32.0); Mean Platelet Vol. 9.4 fl (6.2-12.0); Monocyte# 0.55 X10^3/uL; Monocyte% 8.4 % (0-10); NRBC Flagged by Analyzer 0 % (0-5); Neutrophil # 3.38 X10^3/uL (2.7-7.7); Neutrophil % 51.7 % (47-70); Platelet Count 241 K/mm3 (150-450); RBC Distribution Width CV 12.5 % (11.6-14.6); RBC Distribution Width SD 48.2 fl (35.1-43.9); Red Blood Count 4.21 M/mm3 (4.2-5.4); White Blood Count 6.5 K/mm3 (4.4-11.0)
--- NOTE | 2023-01-19 12:21 | EX.ED.DYSGE1 ---
HPI History of Present Illness Chief Complaint: Chest Pain Detail of Chief Complaint: Intermittent bilateral anterior chest pain Informant: patient Onset/Context/Timing Onset: Days Context: Sudden Onset Timing: Intermittent Quality: Sharp Location: Anterior chest Current Severity: Gone Maximum Severity: Moderate Worsened by: Movement, use of extremities, breathing Relieved by: Not applicable Associated Symptoms Associated Symptoms: None Narrative Narrative: Patient is a 67-year-old woman with history of bronchitis due to tobacco use as well as hypothyroidism who presents with intermittent chest discomfort that is located right and left anterior chest. She states that last seconds. There is no radiation or associated symptoms. She denies history of PE or DVT. Denies leg pain, swelling discoloration. She denies risk factors for VTE. She denies fever, chills night sweats. Denies headache, visual, ocular auditory symptoms. She denies rhinorrhea, congestion postnasal drainage. Denies sore throat. She denies cough. She denies dyspnea exertion, orthopnea or PND. She denies abdominal pain, nausea, vomiting or diarrhea. She denies change in color, consistency or caliber of her stool. She denies urologic symptoms. Prior similar symptoms: No Recent Illness/Hospitalization: No [facility] Medical History Arthritis Contact with and (suspected) exposure to other viral communicable diseases Emphysema with chronic bronchitis Thyroid disease Home Medications levothyroxine 50 mcg capsule 50 mcg PO DAILY 10/09/22 [History Last Taken Unknown] prednisone 10 mg tablet 10 mg PO .COMPLEX #30 tabs 10/09/22 [Rx Last Taken Unknown] rosuvastatin 10 mg tablet 10 mg PO DAILY 10/09/22 [History Last Taken Unknown] benzonatate 200 mg capsule 200 mg PO BID PRN cough #10 caps 10/15/22 [Rx Last Taken Unknown] albuterol sulfate 90 mcg/actuation aerosol inhaler 2 puff inhalation Q6H PRN shortness of breath or wheezing #6.7 grams 11/02/22 [Rx Last Taken Unknown] amoxicillin 875 mg-potassium clavulanate 125 mg tablet 1 tab PO BID #20 tabs 11/02/22 [Rx Last Taken Unknown] Allergy/AdvReac Type Severity Reaction Status Date / Time No Known Allergies Allergy Verified 01/19/23 11:29 Family History Mother Cancer Father Cancer Surgical History History of hysterectomy Hx of cholecystectomy Social History (Updated 01/19/23 @ 12:[address] Bernardino Hayes MD) household members: none Smoking Status: Current every day smoker tobacco type: cigarettes alcohol intake: never ROS ROS ED Constitutional Constitutional ED: Denies chills, fever(s), subjective, sweats or weight loss Eyes Eyes: Denies blurry vision, change in vision or diplopia ENT ENT ED: Denies ear pain, rhinorrhea or sore throat Cardiovascular Cardiovascular: Reports chest pain; Denies orthopnea, palpitations, paroxysmal nocturnal dyspnea or racing heartbeat Respiratory/Chest Respiratory/Chest: Denies cough, dyspnea, dyspnea on exertion, orthopnea or paroxysmal nocturnal dyspnea Gastrointestinal Gastrointestinal: Denies abdominal pain, constipation, diarrhea, melena, nausea or vomiting Genitourinary Genitourinary ED: Denies dysuria, hematuria or urinary frequency Musculoskeletal Musculoskeletal: Denies arthralgias, back pain, myalgias or neck pain Integumentary Denies rash Neurologic Neurologic: Denies headache(s) or paresthesias Psychiatric Psychiatric: Denies anxiety or depression Endocrine Endocrinology: Denies cold intolerance or heat intolerance Hematologic/Lymphatic Hematologic/Lymphatic: Reports systems reviewed and no addt'l complaints, except as documented EXAM Physical Exam Const Vital Signs: 01/19/23 11:27 01/19/23 12:13 01/19/23 12:13 Temperature 98.6 F 98.6 F Temperature Source Temporal Temporal Pulse Rate 96 80 80 Respiratory Rate 16 12 12 Respiratory Effort Blood Pressure 107/77 107/77 Blood Pressure Mean 87 87 Pulse Ox 99 97 Oxygen Delivery Method Room Air Room Air 01/19/23 12:13 Temperature Temperature Source Pulse Rate Respiratory Rate Respiratory Effort Normal Blood Pressure Blood Pressure Mean Pulse Ox Oxygen Delivery Method Positive well nourished and well developed General Appearance ED: well developed and NAD; Negative for cyanotic, diaphoretic or pallor HEENT Reports moist mucous membranes HEENT Narrative: Atraumatic normocephalic. Ears are normal. Nares are patent. Posterior pharynx is normal. Eyes PERRL and EOMs intact bilaterally Neck no lymphadenopathy, supple and no JVD Chest Wall inspection of chest normal and palpation of chest normal Resp normal respiratory effort and clear to auscultation bilaterally Cardio regular rate, regular rhythm, S1 normal heart sound, S2 normal heart sound and no murmurs GI normal to inspection, nondistended, normoactive bowel sounds, non-tender, non-distended and no masses; Negative for hepatosplenomegaly Back/Spine no CVA tenderness Cervical Spine: Negative for cervical spine tenderness Thoracic Spine / Upper Back: Negative for thoracic spinal tenderness Lumbar Spine / Lower Back: Negative for lumbar spinal tenderness Extremity normal to inspection Extremity Narrative: There is no asymmetry, swelling, discoloration, leg vein distention, palpable cords or tenderness along the distribution of the deep venous system. Neuro oriented x3, CN's II-XII intact bilaterally and no sensory deficits noted Sensorium / Orientation: alert Psych mental status grossly normal Skin no rashes or lesions noted, no wounds and skin turgor normal General Skin Exam: Negative for pallor MDM MDM MDM Narrative Medical decision making narrative: Frontal diagnosis includes cardiac chest pain, GI etiology, noncardiac etiology. History and physical is not supportive for aortic dissection. Doubt pneumothorax. Doubt pneumonia. This may represent atypical cardiac presentation. EKG, chest x-ray, blood work was obtained. History & Record Review Additional record(s) reviewed:: Prior labs Lab Data Attestation: I reviewed the patient's lab results. Lab results narrative: CBC is unremarkable. MCV is elevated at 104.0. D-dimer is less than 0.27. Troponin is 4. Basic metabolic panel is normal Labs: Laboratory Results - last 24 hr 01/19/23 12:10 WBC 6.5 RBC 4.21 Hgb 14.2 Hct 43.8 MCV 104.0 H MCH 33.7 H MCHC 32.4 RDW Std Deviation 48.2 H RDW Coeff of Lizbeth 12.5 Plt Count 241 MPV 9.4 Immature Gran % (Auto) 0.200 Neut % (Auto) 51.7 Lymph % (Auto) 37.3 [place] % (Auto) 8.4 Eos % (Auto) 1.8 Baso % (Auto) 0.6 Absolute Neuts (auto) 3.4 Absolute Lymphs (auto) 2.44 Nucleated RBC % 0 D-Dimer Quant (PE/DVT) < 0.27 L Sodium 139 Potassium 4.1 Chloride 108 H Carbon Dioxide 28.0 Anion Gap 3 L BUN 12 Creatinine 0.73 Estim Creat Clear Calc 38.68 Est GFR (MDRD) Af Amer 101 Est GFR (MDRD) Non-Af 84 BUN/Creatinine Ratio 16.4 Glucose 86 Calcium 9.1 Troponin I High Sens 4 Radiography Chest X-Ray - ED: 2 View and Read by ED Physician (2 view chest x-ray reveals hyperaeration with no infiltrate or effusion. There is no pneumothorax. Cardiac silhouette and size is normal. Osseous structures are unremarkable.) Diagnostic Testing: Clinical Impression(s) from Imaging Studies Chest X-Ray 01/19/23 12:15 IMPRESSION: Hyperinflation. The lungs are clear. Electronically Signed: Sergey Walsh MD at 12:34 EDT , EKG Initial EKG: Attestation: I personally reviewed and interpreted this EKG as follows: Interpretation: Sinus Rhythm (Rate is 72. The EKG is normal. DE interval is 148 ms. QRS duration 90 ms. QT duration 374 ms. Melba is normal.) Treatment and Re-Evaluation :: Patient was informed her work-up is unremarkable. She was informed that all the life-threatening things that I need to be concerned about have been ruled out. Of note with a normal D-dimer likelihood of aortic dissection is less than 1%. Discharge Plan Triage Chief Complaint: Chest Pain ED Provider: Bernardino Hayes Dx/Rx/DC Orders Clinical Impression: Intermittent chest pain, Tobacco use Prescriptions: No Action levothyroxine 50 mcg capsule 50 mcg PO DAILY Patient Comments: take 1 capsule by mouth once daily rosuvastatin 10 mg tablet 10 mg PO DAILY Patient Comments: take 1 tablet by mouth nightly prednisone 10 mg tablet 10 mg PO .COMPLEX Qty: 30 0RF Rx Instructions: Take 4 pills for 3 days, 3 pills for 3 days, 2 pills for 3 days, take 1 pill for 3 days benzonatate 200 mg capsule 200 mg PO BID PRN (Reason: cough) Qty: 10 0RF amoxicillin-pot clavulanate 875-125 mg tablet 1 tab PO BID Qty: 20 0RF albuterol sulfate 90 mcg/actuation HFA aerosol inhaler 2 puff inhalation Q6H PRN (Reason: shortness of breath or wheezing) Qty: 6.7 0RF Primary Care Provider: Yenny Dixon Referrals: Yenny Dixon, DO [Primary Care Provider] - 3-5 Days if not improving Disposition Disposition: Home, Self Care
[2023-01-19 12:33] LABS: D-Dimer Quantitative (DVT/PE) < 0.27 FEU/ug/m (0.27-0.49)
[2023-01-19 12:39] LABS: Anion Gap 3 (5-15); BUN 12 mg/dL (7-18); BUN/Creat Ratio 16.4 RATIO (10-20); Calcium,Total 9.1 mg/dL (8.5-10.1); Chloride 108 mmol/L (98-107); Creatinine, Serum 0.73 mg/dL (0.55-1.02); EST Glomerular Filtration Rate 84 mL/min (>60); Est Glom Filt Rate - Afr Amer 101 mL/min (>60); Estimated Creatinine Clearance 38.68 ml/min; Glucose 86 mg/dL (74-106); Potassium 4.1 mmol/L (3.5-5.1); Sodium Level 139 mmol/L (136-145); Troponin-I HS 4 pg/mL (3.0-54.0)
[2023-01-19 13:03] VITALS: BP 110/73; PULSE 70; RESP 20; O2SAT 96
== END 2023-01-19 13:04 | disposition home or self-care (01) ==
PROVIDERS: Emergency Provider Emergency Medicine; PCP Family Medicine; Visit Provider Emergency Medicine
DX: R07.9 Chest pain, unspecified (principal); E03.9 Hypothyroidism, unspecified; Z79.899 Other long term (current) drug therapy; Z90.710 Acquired absence of both cervix and uterus; Z90.49 Acquired absence of other specified parts of digestive tract; F17.210 Nicotine dependence, cigarettes, uncomplicated
CPT/HCPCS: 71046; 80048; 84484; 85025; 85379; 93005; 99284; A4216

== ENCOUNTER 2023-07-08 14:10 | Emergency (ER) | payer MEDICARE, MEDICAID, SELFPAY ==
[2023-07-08 14:10] VITALS: BP 158/92; PULSE 91; RESP 18; TEMP 36.3; O2SAT 98; BMI 21.4
--- NOTE | 2023-07-08 14:42 | EDS_ITS ---
HPI History of Present Illness Chief Complaint: Upper Extremity Injury Informant: patient Narrative Narrative: Patient states that her right shoulder and her right elbow been hurting for a month. She states she visited her PCP for this and was told it was probably tendinitis, but she has had no specific treatment or referrals and the pain is getting worse. She has not contacted her doctor again about this, but presents to the ER for this on Monday. She is right-hand dominant. She denies any known injury. She occasionally get some tingling in all of her fingers but when it occurs it is in both hands and it is not present right now and that precedes the pain that she has been having. She denies weakness. She denies headaches or neck pain. Moving it hurts, remaining still is better but she has been trying topicals and ibuprofen and nothing is helping and this feels like it is getting worse. [facility] Medical History Arthritis Contact with and (suspected) exposure to other viral communicable diseases Emphysema with chronic bronchitis Thyroid disease Home Medications levothyroxine 50 mcg capsule 50 mcg PO DAILY 10/09/22 [History Last Taken Unknown] rosuvastatin 10 mg tablet 10 mg PO DAILY 10/09/22 [History Last Taken Unknown] albuterol sulfate 90 mcg/actuation aerosol inhaler 2 puff inhalation Q6H PRN shortness of breath or wheezing #6.7 grams 11/02/22 [Rx Last Taken Unknown] azithromycin 250 mg tablet See Rx Instructions PO .COMPLEX #6 tabs 06/16/23 [Rx Last Taken Unknown] hydrocodone-acetaminophen 5-325mg 5mg-325mg 1 tab PO Q6H PRN PRN Pain 3 days #12 TABLETS 07/08/23 [Rx Last Taken Unknown] Allergy/AdvReac Type Severity Reaction Status Date / Time No Known Allergies Allergy Verified 07/08/23 14:10 Family History Mother Cancer Father Cancer Surgical History History of hysterectomy Hx of cholecystectomy Social History household members: none Smoking Status: Current every day smoker tobacco type: cigarettes alcohol intake: never ROS ROS ED Constitutional Constitutional ED: Denies chills or fever(s) Musculoskeletal Musculoskeletal: Reports extremity pain; Denies neck pain Integumentary Denies Abrasions, rash or wounds Neurologic Neurologic: Denies paresthesias or weakness EXAM Physical Exam Const Vital Signs: 07/08/23 14:10 Temperature 97.4 F L Temperature Source Temporal Pulse Rate 91 Respiratory Rate 18 Blood Pressure 158/92 H Blood Pressure Mean 114 Pulse Ox 98 Oxygen Delivery Method Room Air Positive well nourished and well developed General Appearance ED: well developed and NAD Neck full ROM and supple Back/Spine normal ROM and normal to inspection Extremity Extremity Narrative: Patient does have full range of motion of the right upper extremity, but every movement hurts her right shoulder and right medial elbow worse. She has tenderness anteriorly at the coracoid process and the bicipital groove mostly, she indicates that she occasionally has some discomfort in the subacromial fossa but is not tender there right now. There is no deformity. She can put the hand behind small of her back and states that hurts both these areas as well. She has tenderness in the area surrounding the right medial upper condyle, but there is no erythema, swelling, or focal bony tenderness. There is no epitrochlear lymphadenopathy but she has tenderness in that area as well. She is jumping every time I touch anywhere in these areas. All compartments of the upper arm and the forearm are soft and nondistended. There is no palpable cords. There is no erythema or rash. She has an intact radial pulse distally and is neurovascularly intact distally with regards to sensation and motor. Neuro oriented x3, no focal motor deficits and no sensory deficits noted Sensorium / Orientation: alert Psych mental status grossly normal and thought process normal Skin no wounds Rashes: no rashes MDM MDM MDM Narrative Medical decision making narrative: I do not think emergent x-rays are indicated here. Certainly medial epicondylitis is in the differential but that would not be causing her shoulder pain, for which there is a broad differential given her pain and exam. She has pain in every single movement direction. This could be impingement syndrome but could be rotator cuff tear/involvement, I think even a referral to orthopedics is reasonable and she wants something for pain given that she been having trouble sleeping due to the pain. She understands that an MRI may be what she n eeds to diagnose with the problem is, and that I do not have a quick fix available here in ER and that includes the pain medication and prescribing her. Discharge Plan Triage Chief Complaint: Upper Extremity Injury ED Provider: Joseph Argueta Dx/Rx/DC Orders Clinical Impression: Right shoulder pain, Right elbow pain Instructions: ED Rotator Cuff Tear, Tendonitis and Tenosynovitis Prescriptions: New hydrocodone-acetaminophen [hydrocodone-acetaminophen] 5-325 mg tablet 1 tab PO Q6H PRN PRN (Reason: Pain) 3 Days Qty: 12 0RF No Action levothyroxine 50 mcg capsule 50 mcg PO DAILY Patient Comments: take 1 capsule by mouth once daily rosuvastatin 10 mg tablet 10 mg PO DAILY Patient Comments: take 1 tablet by mouth nightly albuterol sulfate 90 mcg/actuation HFA aerosol inhaler 2 puff inhalation Q6H PRN (Reason: shortness of breath or wheezing) Qty: 6.7 0RF azithromycin 250 mg tablet See Rx Instructions PO .COMPLEX Qty: 6 0RF Rx Instructions: take 500 mg today (day 1), then 250 mg for 4 days (days 2-5) PO Primary Care Provider: Yenny Dixon Referrals: Yenny Dixon, DO [Primary Care Provider] - As soon as possible Orlando Palacios MD [Med Staff - Active Staff] - As soon as possible Disposition Disposition: Home, Self Care
--- OUTSIDE RECORDS SUMMARY | 2023-07-08 14:47 | XMS RPT_ITS | CCD ---
Author Name Unknown Address [address] [place] [address] [facility] Care Team Providers Care Anesthesia Tech Name Role Phone DSOUZA, ARASH Unavailable Unavailable DSOUZA, ARASH Unavailable Unavailable KEVIN UNGER Unavailable Unavailable DSOUZA, ARASH Unavailable Unavailable Marisa Altamirano Unavailable Unavailabl e DSOUZA, ARASH Unavailable Unavailable DSOUZA, ARASH Unavailable Unavailable DSOUZA, ARASH Unavailable Unavailable DSOUZA, ARASH Unavailable Unavailable DSOUZA, ARASH Unavailable Unavailable DSOUZA, ARASH Unavailable Unavailable DSOUZA, ARASH Unavailable Unavailable LAURENT ISRAEL Unavailable Unavailable DSOUZA, ARASH Unavailable Unavailable DSOUZA, ARASH Unavailable Unavailable DSOUZA, ARASH Unavailable Unavailable BeatriceesaAmy Unavailable Judy Emmanuel Unavailable Unavailable Unavailable Unavailable Amy Thomas Attending Unavailable Amy Thomas Referring Unavailable Amy Thomas Consulting Unavailable Charles Dsouza Unavailable Unavailable Cherise Martinez Unavailable Tin Lee Unavailable Wanda Hernandez Unavailable Unavailable Beba Cortez Unavailable Eliane Couch Unavailable Katarina Schreiber Unavailable Unavailable Charles Dsouza Unavailable Unavailable Jackie Payton Unavailable Gurjit Mcclure Unavailable Emily Vega Unavailable Alexia Valentino Unavailable [facility] Unavailable [phone] Jackie Payton Unavailable Beba Cortez Unavailable Charles Cazares Unavailable Unavailable Unavailable Unavailable Yaneth Proctor Unavailable Unavailable Norris Avila MD Primary Care Provider Martha PIEDRA Irina [facility]available [facility] Unavailable [phone] Beba Cortez Unavailable Fito ELIAS, Dr. Jackie Ng Unavailable Tin Lee Unavailable Dr. Gurjit Mcclure Unavailable [phone] KhoaDianaEliane Unavailable Emily Vega Unavailable Charles Cazares LPN Unavailable Unavailable Unavailable Unavailable Norris Avila MD Primary Care Provider PROVIDER, UNKNOWN Referring Unavailable Mirian Clark Attending Unavailable Norris Dalton Primary Care Unavailable Norris Dalton Primary Care Unavailable Eric Hawkins Attending Unavailable PROVIDER, UNKNOWN Referring Unavailable Eric Hawkins DO Primary Care Provider Arash Dixon DO Primary Care Provider [phone] Medications Current Medications Medication Drug Class(es) Dates Sig (Normalized) Sig (Original) cholecalciferol 0.05 mg oral capsule (20 sources) Vitamin D Cholecalciferol 50 MCG (1999 UT) CAPS Take by mouth 0 Active Completed/Discontinued Medications Medication Drug Class(es) Dates Sig (Normalized) Sig (Original) amitriptyline hydrochloride 25 mg oral tablet (20 sources) Tricyclic Antidepressant Start: 03-24-2020 End: 09-04-2020 take 1 tablet by mouth once daily at bedtime as needed Amitriptyline HCl 25 MG Oral Tablet 1 (one) Tablet qhs PRn for 0 days Quantity: 30 {Tablet} Refills: 3 Ordered: 04-Sep-2020 Amy Thomas CNP, CNP Irina Start : 24-Mar-2020 End : 04-Sep-2020 Inactive Problems Active Problems Problem Classification Problem Date Documented Da te Episodic/Chronic Abdominal hernia (20 sources) Hernia of abdominal cavity; Translations: [Hernia, abdominal] 07-09-2018 Episodic Past or Other Problems Problem Classification Problem Date Documented Date Episodic/Chronic Conditions associated with dizziness or vertigo (20 sources) Conditions associated with dizziness or vertigo Congestive heart failure; nonhypertensive (19 sources) Congestive heart failure; nonhypertensive Influenza (20 sources) Influenza Other connective tissue disease (8 sources) Pain in left hand; Translations: [Pain of left hand] Resolved: 03-24-2020 07-11-2018 Episodic Other connective tissue disease (20 sources) Pain in bilateral legs; Translations: [Leg pain, bilateral] 08-22-2018 Results Test Name Value Interpretation Reference Range Facil ity Vital Signs Date Time Vital Sign Value Performing Clinician Facility 09-04-2020 13:18-0500 BMI (Body Mass Index) 19.4 kg/m2 Charles Cazares LPN [facility] Work Phone: 09-04-2020 13:18-0500 Body Temperature 97.5 [degF] Charles Cazares LPN [facility] Work Phone: Encounters Encounter Date Encounter Type Care Provider Facility Start: 05-10-2023 Telephone encounter Arash wilson DO Work Phone: [facility] Procedures Date Procedure Procedure Detail Performing Clinician Start: 03-21-2022 Thyrotropin [Units/volume] in Serum or Plasma Arash Dixon DO Work Phone: Start: 10-19-2020 Comprehensive metabolic panel Norris Dalton MD Work Phone: Start: 10-19-2020 Lipid panel Norris Dalton MD Work Phone: Start: 12-11-2019 End: 12-11-2019 L/S Spine Min 4 Views Comments: See Note; NOTES: [facility] Imaging Services [address] [place] [address] L/S Spine Min 4 Views MR#: [id number] Acct: [id number] Name: YANELY CEJA Rep #: [id number] : 1955 F 64 From: Sergey guardado MD PCP: 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 Lower back pain w/sciatica, no injury TECHNIQUE: 5 view(s) of the lumbar spine were obtained including oblique views. COMPARISON: None FINDINGS: Normal lumbar lordosis. There is no substantial scoliosis. There is a normal alignment of the vertebrae. Normal vertebral bodies and endplates. Mild degree of disc space narrowing at the L4-L5 and L5-S1 levels. Facet joint osteoarthritis There is atherosclerotic calcification of the abdominal aorta without a demonstrated aneurysm. Moderate amount of fecal material is seen. RAD/L/S Spine Min 4 Views IMPRESSION: Degenerative changes of the spine, as detailed above. Electronically Signed: Sergey Walsh, at 15:35 EDT , Service support , CC: AHMET Thomas T[employer] Building Supervisor: Signed Amy Thomas Work Phone: Start: 12-11-2019 End: 12-11-2019 Thoracic Spine 3 Views Comments: See Note; NOTES: [facility] Imaging Services [address] [place] [address] Thoracic Spine 3 Views MR#: [id number] Acct: [id number] Name: YANELY CEJA Rep #: [id number] : 1955 F 64 From: Sergey guardado MD PCP: AHMET Gaines Status: REG CLI Study: Thoracic Spine 3 Views Date of Exam: 12/11/19 Exam# [id number] Ordering Dr: Amy Thomas STUDY: X-RAY - THORACIC SPINE REASON FOR EXAM: Female, 64 years old. Mid/lower back pain TECHNIQUE: 3 view(s) of the thoracic spine were obtained. COMPARISON: None. FINDINGS: Normal kyphosis of the thoracic spine. There is no substantial scoliosis. There is multilevel endplate spondylosis of the thoracic vertebrae. There is multilevel disc space narrowing of the thoracic spine. The soft tissue structures are unremarkable. RAD/Thoracic Spine 3 Views IMPRESSION: Multilevel disc space narrowing and spondylosis. Electronically Signed: Sergey Jillian, at 15:36 EDT , Service support , CC: AHMET Thomas [employer] Building Supervisor: Signed Amy Thomas Work Phone: Start: 08-07-2019 End: 08-07-2019 Abdomen Single View Comments: See Note; NOTES: [facility] Imaging Services [address] [place] [address] Abdomen Single View MR#: [id number] Acct: [id number] Name: YANELY CEJA Rep #: [id number] : 1955 F 64 From: Cuauhtemoc Maxwell MD PCP: AHMET Gaines Status: REG CLI Study: Abdomen Single View Date of Exam: 08/07/19 Exam# [id number] Ordering Dr: Amy Thomas STUDY: X-RAY - ABDOMEN/PELVIS REASON FOR EXAM: Female, 64 years old. ABD PAIN AND BLOATING. LOSS OF APPETITE AND WEIGHT LOSS TECHNIQUE: Single AP view of the abdomen / pelvis. COMPARISON: None. FINDINGS: Normal visualized lung bases. There is an unremarkable bowel gas pattern. There is no demonstrated free abdominal air. The visualized liver, spleen and kidneys are grossly normal in size and morphology. Surgical clips are seen in the right upper quadrant of the abdomen. Normal visualized osseous structures. RAD/Abdomen Single View IMPRESSION: Surgical clips seen in the right upper quadrant of the abdomen most likely associated with cholecystectomy. The bowel gas pattern is unremarkable. Electronically Signed: Cuauhtemoc Maxwell MD at 21:12 EST , Service support , CC: AHMET Thomas [employer] Building Supervisor: Signed Amy Thomas Work Phone: Start: 05-31-2019 End: 05-31-2019 SCREEN MAMM (CAD) W/MASON BILAT Comments: See Note; NOTES: [facility] Imaging Services [address] [place] [address] SCREEN MAMM (CAD) W/MASON BILAT MR#: [id number] Acct: [id number] Name: YANELY CEJA Rep #: [id number] : 1955 F 63 From: Sergey Walsh MD PCP: AHEMT Gaines Status: REG CLI Study: SCREEN MAMM (CAD) W/MASON BILAT Date of Exam: 05/31/19 Exam# [id number] Ordering Dr: Amy Thomas MAMMOGRAPHY - BILATERAL SCREENING REASON FOR EXAM: Female, 63 years old. Routine annual screening examination. PERTINENT HISTORY: Non-contributory. TECHNIQUE: Digital bilateral breast mason (3D mammographic acquisition) in the CC and MLO projections. 2-D mediolateral oblique (MLO) and craniocaudad (CC) views of both breasts were obtained. CAD: Full Field Digital Mammography with Computer Added Detection was performed. COMPARISON: Comparison is made with prior examination dated February 22, 2018 and April 22, 2014. FINDINGS: Breast Composition: There are scattered areas of fibroglandular density. There are no dominant masses or suspicious calcifications. No other significant abnormalities are identified. There has been no significant change since the prior study. BI/SCREEN MAMM (CAD) W/MASON BILAT IMPRESSION: Stable bilateral screening mammogram. Yearly follow-up mammogram recommended. (A) ASSESSMENT CATEGORY: BIRADS Category 1: Negative. A letter regarding these results will be sent to the patient by the facility within 30 days. Approximately 10% of breast cancers are not detected by mammography. A normal mammogram should not delay biopsy of a clinically suspicious abnormality. [id number] Electronically Signed: Sergey Walsh, at 12:55 EST , Service support , CC: AHMET Thomas [employer] Building Supervisor: Signed Amy Thomas Work Phone: Start: 08-24-2018 End: 08-24-2018 Venous Duplex Lower Extremity Comments: See Note; NOTES: [facility] Cardiovascular Services [address] [place] [address] Venous Duplex US - Juvencio Extrem 08/24/18 0901 MR#: [id number] Acct: [id number] Name: YANELY CEJA Rep #: [id number] : 1955 63 From: Madhu Ventura MD Attending Dr: Amy Thomas NP Status: REG CLI Ordering Dr: Amy Thoams Date: 08/24/18 Location: [facility] Sex: F C Admitted: Reason For Study: PAIN RIGHT LEFT GSV is normal. GSV is normal. CFV is compressible, spontaneous, phasic, CFV is compressible, spontaneous, phasic, competent and demonstrates normal competent, and demonstrates normal augmentation. augmentation. FV is compressible, spontaneous, phasic, FV is compressible, spontaneous, phasic, competent and demonstrates normal competent and demonstrates normal augmentation. augmentation. POP V is compressible, spontaneous, phasic, POP V is compressible, spontaneous, phasic, competent and demonstrates normal competent and demonstrates normal augmentation. augmentation. T/P Trunk is compressible. T/P Trunk is compressible. PTV is compressible. PTV is compressible. RT PerV is compressible. LT PerV is compressible. Procedure Exam performed in department. A preliminary report was called and/or faxed to Amy Thomas. Interpretation Summary Deep veins of the lower extremities are bilaterally patent and compressible segmentally. There is no evidence of deep vein thrombosis on either side. Valvular competence appears intact within the proximal deep venous systems bilaterally. The greater saphenous veins appear bilaterally patent and compressible segmentally. Ordering Physician: Amy Thomas Referring Physician: Amy Thomas Performed By: Leanne Pulliam, RDCS, RVT 08/24/181455 Date Madhu Ventura MD CC: Amy Thomas NP Date Dictated: 08/24/18900 Date Transcribed: 08/24/181455 T[employer] Building Supervisor: Signed Amy Thmoas Work Phone: Start: 07-11-2018 End: 07-11-2018 Cerv Spine 4 or 5 Views Comments: See Note; NOTES: [facility] Imaging Services [address] [place] [address] Cerv Spine 4 or 5 Views MR#: [id number] Acct: [id number] Name: YANELY CEJA Rep #: [id number] : 1955 F 62 From: Cuauhtemoc Maxwell MD PCP: Amy Thomas NP Status: REG CLI Study: Cerv Spine 4 or 5 Views Date of Exam: 07/11/18 Exam# [id number] Ordering Dr: Amy Thomas STUDY: X-RAY - CERVICAL SPINE REASON FOR [...] Service support , CC: Amy Thomas NP T[employer] Building Supervisor: Signed Amy Thomas Work Phone: Start: 07-09-2018 End: 07-09-2018 L/S Spine Min 4 Views Comments: See Note; NOTES: [facility] Imaging Services [address] [place] [address] L/S Spine Min 4 Views MR#: [id number] Acct: [id number] Name: YANELY CEJA Rep #: [id number] : 1955 F 62 From: Eric Trejo DO PCP: Amy Thomas NP Status: REG CLI Study: L/S Spine Min 4 Views Date of Exam: 07/09/18 Exam# [id number] Ordering Dr: Amy Thomas STUDY: X-RAY - LUMBAR SPINE REASON FOR [...] Service support , CC: Amy Thomas NP T[employer] Building Supervisor: Signed Amy Thomas Work Phone: Start: 02-22-2018 End: 02-22-2018 Dexa Bone Density Study Comments: See Note; NOTES: [facility] Imaging Services [address] [place] [address] Dexa Bone Density Study MR#: [id number] Acct: [id number] Name: YANELY CEJA Rep #: [id number] : 1955 F 62 From: Sergey Walsh MD PCP: Amy Thomas NP Status: REG CLI Study: Dexa Bone Density Study Date of Exam: 02/22/18 Exam# [id number] Ordering Dr: Amy Thomas STUDY: DUAL ENERGY [...] Sergey Walsh MD at 15:25 EDT Tel [phone], Service support , CC: Amy Thomas NP T[employer] Building Supervisor: Signed Irina Martha Work Phone: Start: 02-22-2018 End: 02-22-2018 SCREENING MAMM (CAD), BILAT Comments: See Note; NOTES: [facility] Imaging Services [address] [place] [address] SCREENING MAMM (CAD), BILAT MR#: [id number] Acct: [id number] Name: YANELY CEJA Rep #: [id number] : 1955 F 62 From: Sergey Walsh MD PCP: Amy Thomas NP Status: REG CLI Study: SCREENING MAMM (CAD), BILAT Date of Exam: 02/22/18 Exam# [id number] Ordering Dr: Amy Thomas MAMMOGRAPHY - BILATERAL SCREENING REASON FOR EXAM: Female, 62 years old. Routine annual screening examination. PERTINENT HISTORY: Non-contributory. TECHNIQUE: Digital bilateral breast mason (3D mammographic acquisition) in the CC and [...] delay biopsy of a clinically suspicious abnormality. [id number] Electronically Signed: Sergey Walsh MD at 12:57 EDT Tel [phone], Service support , CC: Amy Thomas NP [employer] Building Supervisor: Signed Amy Thomas Work Phone: Gallbladder Surgery Judy L ocklear Gallbladder Surgery Judy L ocklear Gall[facility]adder Surgery Judy L ocklear Gallbladder Surgery Judy L ocklear Gallbladder Surgery Wanda Mary Gallbladder Surgery Wanda Mary Gallbladder [facility] Charles S mith Gallbladder Surgery Charles S mith Gallbladder Surgery Alexia G ravius Gallbladder Surgery Charles D leroy Hysterectomy Judy Cholo Hysterectomy Judy Cholo Hysterectomy Judy Cholo Hysterectomy Judy Cholo Hysterectomy Wanda Mary Hysterectomy Wanda Mary Hysterectomy Charles Dsouza Hysterectomy Charles Dsouza Hysterectomy Alexia Gravius Hysterectomy Charles Sage Hysterectomy Charles Sage Operation on gallbladder Mor yesica Sage Operation on gallbladder Mor yesica Sage Plan of Treatment Date Care Activity Detail Author Start: 10-19-2025 Lipid panel [facility] Start: 03-21-2023 Thyroid stimulating hormone measurement TSH Level [facility] Start: 02-24-2023 Influenza vaccination Influenza Vacc ine (#1) [facility] Start: 02-15-2023 COVID-19 Vaccine (#1) COVID-19 Vacci ne (#1) [facility] Payers Date Payer Category Payer Medicare [id number] 2017 Unknown [id number] 2016 Medicare [id number] 1955 Unknown [id number] 1955 Unknown [id number] 1955 Unknown [id number] Unknown Social History Date Type Detail Facility Alcohol use: Current every da y smoker [facility] Work Phone: Tobacco use: Current every da y smoker. [facility] Work Phone: Start: 1955 Sex Assigned At Not on file [facility] Work Phone: Alcohol use: Alcohol use: [facility] Work Phone: Tobacco use: Tobacco use: [facility] Work Phone: Tobacco smoking stat [facility] Tobacco smoking consumption unknown [facility] Start: 02-01-1989 Tobacco smoking status SCIS Smokes tobacco daily [facility] Work Phone: Start: 02-01-1989 History of tobacco use Cigarette Smoker [facility] Work Phone: Start: 02-02-2022 End: 03-21-2022 Cigarettes smoked current (pack per day) - Reported 0.5 [facility] Work Phone: Start: 02-02-2022 Tobacco use and exposure Smokeless tobacco non-user [facility] Work Phone: Start: 02-16-2022 End: 03-21-2022 Alcohol intake Lifetime non-drinker (finding) [facility] Work Phone: Start: 02-02-2022 History SDOH Financial 5 [facility] Work Phone: Start: 02-02-2022 History SDOH Food Worry 1 [facility] Work Phone: Start: 03-21-2022 Tobacco use panel [facility] Telephone encounter Note 05-10-2023 Telephone Encounter - Radha Albert - 05/10/2023 3:37 PM EST Note Date & Type Note Facility 05-10-2023 Telephone encounter Note Form atting of this note might be different from the original. This patient has had a prior lung screening CT scan at [facility]. According to our records, he/she is now due for an annual lung screening CT scan. Please evaluate and order this annual screening if your patient still meets lung screening criteria. [facility] Note 05-10-2023 Telephone Encounter - Radha Albert - 05/10/2023 3:37 PM EST Note Date & Type Note Facility 05-10-2023 Miscellaneous Notes Formattin g of this note might be different from the original. This patient has had a prior lung screening CT scan at [facility]. According to our records, he/she is now due for an annual lung screening CT scan. Please evaluate and order this annual screening if your patient still meets lung screening criteria. documented in this encounter [facility] [employer] Evaluation note Note Date & Type Note Facility documented in this encounter [facility] Work Phone: Instructions Note Date & Type Note Facility [facility] Work Phone: Summary Purpose Family History No Family History Records FoundUnknown Family Member Name Dates Details Mother Comments:Melanoma Status:Active Sister 1 Comments:Lung cancer Status:Active Unknown Family Member Name Dates Details Mother Comments:Melanoma Status:Active Sister 1 Comments:Lung cancer Status:Active Unknown Family Member Name Dates Details Mother Comments:Melanoma Status:Active Sister 1 Comments:Lung cancer Status:Active Unknown Family Member Name Dates Details Mother Comments:Melanoma Status:Active Sister 1 Comments:Lung cancer Status:Active Unknown Family Member Name Dates Details Mother Comments:Melanoma Status:Active Sister 1 Comments:Lung cancer Status:Active Unknown Family Member Name Dates Details Mother Comments:Melanoma Status:Active Sister 1 Comments:Lung cancer Status:Active Unknown Family Member Name Dates Details Mother Comments:Melanoma Status:Active Sister 1 Comments:Lung cancer Status:Active Unknown Family Member Name Dates Details Mother Comments:Melanoma Status:Active Sister 1 Comments:Lung cancer Status:Active Unknown Family Member Name Dates Details Mother Comments:Melanoma Status:Active Sister 1 Comments:Lung cancer Status:Active Unknown Family Member Name Dates Details Mother Comments:Melanoma Status:Active Sister 1 Comments:Lung cancer Status:Active Unknown Family Member Name Dates Details Mother Comments:Melanoma Status:Active Sister 1 Comments:Lung cancer Status:Active Unknown Family Member Name Dates Details Mother Comments:Melanoma Status:Active Sister 1 Comments:Lung cancer Status:Active Unknown Family Member Name Dates Details Mother Comments:Melanoma Status:Active Sister 1 Comments:Lung cancer Status:Active Unknown Family Member Name Dates Details Mother Comments:Melanoma Status:Active Sister 1 Comments:Lung cancer Status:Active Unknown Family Member Name Dates Details Mother Comments:Melanoma Status:Active Sister 1 Comments:Lung cancer Status:Active Unknown Family Member Name Dates Details Mother Comments:Melanoma Status:Active Sister 1 Comments:Lung cancer Status:Active Unknown Family Member Name Dates Details Mother Comments:Melanoma Status:Active Sister 1 Comments:Lung cancer Status:Active Unknown Family Member Name Dates Details Mother Comments:Melanoma Status:Active Sister 1 Comments:Lung cancer Status:Active Unknown Family Member Name Dates Details Mother Comments:Melanoma Status:Active Sister 1 Comments:Lung cancer Status:Active Unknown Family Member Name Dates Details Mother Comments:Melanoma Status:Active Sister 1 Comments:Lung cancer Status:Active Unknown Family Member Name Dates Details Mother Comments:Melanoma Status:Active Sister 1 Comments:Lung cancer Status:Active Unknown Family Member Name Dates Details Mother Comments:Melanoma Status:Active Sister 1 Comments:Lung cancer Status:Active Unknown Family Member Name Dates Details Mother Comments:Melanoma Status:Active Sister 1 Comments:Lung cancer Status:Active Unknown Family Member Name Dates Details Mother Comments:Melanoma Status:Active Sister 1 Comments:Lung cancer Status:Active Unknown Family Member Name Dates Details Mother Comments:Melanoma Status:Active Sister 1 Comments:Lung cancer Status:Active Unknown Family Member Name Dates Details Mother Comments:Melanoma Status:Active Sister 1 Comments:Lung cancer Status:Active Unknown Family Member Name Dates Details Mother Comments:Melanoma Status:Active Sister 1 Comments:Lung cancer Status:Active Unknown Family Member Name Dates Details Mother Comments:Melanoma Status:Active Sister 1 Comments:Lung cancer Status:Active Advance Directives No Advanced Directives Records FoundDocuments on File Type Date Recorded Patient Service Desk Technician Expl anation ACP-Advance Directive ACP-Power of Digital Solution Architect Instructions Name Dates Details Current smoker : How to acce ss health information online Indication:Current smoker Current smoker : How to acce ss health information online - Detail Indication:Current smoker Current smoker : Patient Ins tructions Indication:Current smoker BMI 20.0-20.9, adult : Patie nt Instructions Indication:BMI 20.0-20.9, adult Hypothyroid : How to access health information online Indication:Hypothyroid Hypothyroid : How to access health information online - Detail Indication:Hypothyroid Hypothyroid : Patient Instru ctions Indication:Hypothyroid Name Dates Details Current smoker : How to acce ss health information online Indication:Current smoker Current smoker : How to acce ss health information online - Detail Indication:Current smoker BMI 20.0-20.9, adult : Patie nt Instructions Indication:BMI 20.0-20.9, adult Current smoker : Patient Ins tructions Indication:Current smoker Hypothyroid : How to access health information online Indication:Hypothyroid Hypothyroid : How to access health information online - Detail Indication:Hypothyroid Hypothyroid : Patient Instru ctions Indication:Hypothyroid Name Dates Details Current smoker : How to acce ss health information online Indication:Current smoker Current smoker : How to acce ss health information online - Detail Indication:Current smoker BMI 20.0-20.9, adult : Patie nt Instructions Indication:BMI 20.0-20.9, adult Current smoker : Patient Ins tructions Indication:Current smoker Hypothyroid : How to access health information online Indication:Hypothyroid Hypothyroid : How to access health information online - Detail Indication:Hypothyroid Hypothyroid : Patient Instru ctions Indication:Hypothyroid Name Dates Details Current smoker : How to acce ss health information online Indication:Current smoker Current smoker : How to acce ss health information online - Detail Indication:Current smoker Current smoker : Patient Ins tructions Indication:Current smoker BMI 20.0-20.9, adult : Patie nt Instructions Indication:BMI 20.0-20.9, adult Hypothyroid : How to access health information online Indication:Hypothyroid Hypothyroid : How to access health information online - Detail Indication:Hypothyroid Hypothyroid : Patient Instru ctions Indication:Hypothyroid Name Dates Details Current smoker : How to acce ss health information online Indication:Current smoker Current smoker : How to acce ss health information online - Detail Indication:Current smoker Current smoker : Patient Ins tructions Indication:Current smoker BMI 20.0-20.9, adult : Patie nt Instructions Indication:BMI 20.0-20.9, adult Hypothyroid : How to access health information online Indication:Hypothyroid Hypothyroid : How to access health information online - Detail Indication:Hypothyroid Hypothyroid : Patient Instru ctions Indication:Hypothyroid Name Dates Details How to access health informa tion online Indication:Current smoker Start:22-Aug-2018 Instruction Type:Patient Education How to access health informa tion online - Detail Indication:Current smoker Start:22-Aug-2018 Instruction Type:Patient Education Patient Instructions Indication:Current smoker Start:22-Aug-2018 Instruction Type:Provider Instructions for Treatment How to access health informa tion online Indication:Current smoker Start:14-Aug-2018 Instruction Type:Patient Education How to access health informa tion online - Detail Indication:Current smoker Start:14-Aug-2018 Instruction Type:Patient Education Patient Instructions Indication:Current smoker Start:14-Aug-2018 Instruction Type:Provider Instructions for Treatment How to access health informa tion online Indication:Current smoker Start:11-Jul-2018 Instruction Type:Patient Education How to access health informa tion online - Detail Indication:Current smoker Start:11-Jul-2018 Instruction Type:Patient Education Patient Instructions Indication:BMI 20.0-20.9, adult Start:11-Jul-2018 Instruction Type:Provider Instructions for Treatment How to access health informa tion online Indication:Current smoker Start:09-Jul-2018 Instruction Type:Patient Education How to access health informa tion online - Detail Indication:Current smoker Start:09-Jul-2018 Instruction Type:Patient Education Patient Instructions Indication:Current smoker Start:09-Jul-2018 Instruction Type:Provider Instructions for Treatment How to access health informa tion online Indication:Current smoker Start:27-Feb-2018 Instruction Type:Patient Education How to access health informa tion online - Detail Indication:Current smoker Start:27-Feb-2018 Instruction Type:Patient Education Patient Instructions Indication:Current smoker Start:27-Feb-2018 Instruction Type:Provider Instructions for Treatment How to access health informa tion online Indication:Current smoker Start:05-Feb-2018 Instruction Type:Patient Education How to access health informa tion online - Detail Indication:Current smoker Start:05-Feb-2018 Instruction Type:Patient Education Patient Instructions Indication:Current smoker Start:05-Feb-2018 Instruction Type:Provider Instructions for Treatment How to access health informa tion online Indication:Current smoker Start:30-Jan-2018 Instruction Type:Patient Education How to access health informa tion online - Detail Indication:Current smoker Start:30-Jan-2018 Instruction Type:Patient Education Patient Instructions Indication:BMI 20.0-20.9, adult Start:30-Jan-2018 Instruction Type:Provider Instructions for Treatment How to access health informa tion online Indication:Hypothyroid Start:11-Jan-2018 Instruction Type:Patient Education How to access health informa tion online - Detail Indication:Hypothyroid Start:11-Jan-2018 Instruction Type:Patient Education Patient Instructions Indication:Hypothyroid Start:11-Jan-2018 Instruction Type:Provider Instructions for Treatment Name Dates Details How to access health informa tion online Indication:Current smoker Start:07-Jan-2019 Instruction Type:Patient Education How to access health informa tion online - Detail Indication:Current smoker Start:07-Jan-2019 Instruction Type:Patient Education Patient Instructions Indication:Current smoker Start:07-Jan-2019 Instruction Type:Provider Instructions for Treatment How to access health informa tion online Indication:Current smoker Start:22-Aug-2018 Instruction Type:Patient Education How to access health informa tion online - Detail Indication:Current smoker Start:22-Aug-2018 Instruction Type:Patient Education Patient Instructions Indication:Current smoker Start:22-Aug-2018 Instruction Type:Provider Instructions for Treatment How to access health informa tion online Indication:Current smoker Start:14-Aug-2018 Instruction Type:Patient Education How to access health informa tion online - Detail Indication:Current smoker Start:14-Aug-2018 Instruction Type:Patient Education Patient Instructions Indication:Current smoker Start:14-Aug-2018 Instruction Type:Provider Instructions for Treatment How to access health informa tion online Indication:Current smoker Start:11-Jul-2018 Instruction Type:Patient Education How to access health informa tion online - Detail Indication:Current smoker Start:11-Jul-2018 Instruction Type:Patient Education Patient Instructions Indication:BMI 20.0-20.9, adult Start:11-Jul-2018 Instruction Type:Provider Instructions for Treatment How to access health informa tion online Indication:Current smoker Start:09-Jul-2018 Instruction Type:Patient Education How to access health informa tion online - Detail Indication:Current smoker Start:09-Jul-2018 Instruction Type:Patient Education Patient Instructions Indication:Current smoker Start:09-Jul-2018 Instruction Type:Provider Instructions for Treatment How to access health informa tion online Indication:Current smoker Start:27-Feb-2018 Instruction Type:Patient Education How to access health informa tion online - Detail Indication:Current smoker Start:27-Feb-2018 Instruction Type:Patient Education Patient Instructions Indication:Current smoker Start:27-Feb-2018 Instruction Type:Provider Instructions for Treatment How to access health informa tion online Indication:Current smoker Start:05-Feb-2018 Instruction Type:Patient Education How to access health informa tion online - Detail Indication:Current smoker Start:05-Feb-2018 Instruction Type:Patient Education Patient Instructions Indication:Current smoker Start:05-Feb-2018 Instruction Type:Provider Instructions for Treatment How to access health informa tion online Indication:Current smoker Start:30-Jan-2018 Instruction Type:Patient Education How to access health informa tion online - Detail Indication:Current smoker Start:30-Jan-2018 Instruction Type:Patient Education Patient Instructions Indication:BMI 20.0-20.9, adult Start:30-Jan-2018 Instruction Type:Provider Instructions for Treatment How to access health informa tion online Indication:Hypothyroid Start:11-Jan-2018 Instruction Type:Patient Education How to access health informa tion online - Detail Indication:Hypothyroid Start:11-Jan-2018 Instruction Type:Patient Education Patient Instructions Indication:Hypothyroid Start:11-Jan-2018 Instruction Type:Provider Instructions for Treatment Name Dates Details How to access health informa tion online Indication:Current smoker Start:05-Feb-2019 Instruction Type:Patient Education How to access health informa tion online - Detail Indication:Current smoker Start:05-Feb-2019 Instruction Type:Patient Education Patient Instructions Indication:Hypothyroid Start:05-Feb-2019 Instruction Type:Provider Instructions for Treatment How to access health informa tion online Indication:Current smoker Start:07-Jan-2019 Instruction Type:Patient Education How to access health informa tion online - Detail Indication:Current smoker Start:07-Jan-2019 Instruction Type:Patient Education Patient Instructions Indication:Current smoker Start:07-Jan-2019 Instruction Type:Provider Instructions for Treatment How to access health informa tion online Indication:Current smoker Start:22-Aug-2018 Instruction Type:Patient Education How to access health informa tion online - Detail Indication:Current smoker Start:22-Aug-2018 Instruction Type:Patient Education Patient Instructions Indication:Current smoker Start:22-Aug-2018 Instruction Type:Provider Instructions for Treatment How to access health informa tion online Indication:Current smoker Start:14-Aug-2018 Instruction Type:Patient Education How to access health informa tion online - Detail Indication:Current smoker Start:14-Aug-2018 Instruction Type:Patient Education Patient Instructions Indication:Current smoker Start:14-Aug-2018 Instruction Type:Provider Instructions for Treatment How to access health informa tion online Indication:Current smoker Start:11-Jul-2018 Instruction Type:Patient Education How to access health informa tion online - Detail Indication:Current smoker Start:11-Jul-2018 Instruction Type:Patient Education Patient Instructions Indication:BMI 20.0-20.9, adult Start:11-Jul-2018 Instruction Type:Provider Instructions for Treatment How to access health informa tion online Indication:Current smoker Start:09-Jul-2018 Instruction Type:Patient Education How to access health informa tion online - Detail Indication:Current smoker Start:09-Jul-2018 Instruction Type:Patient Education Patient Instructions Indication:Current smoker Start:09-Jul-2018 Instruction Type:Provider Instructions for Treatment How to access health informa tion online Indication:Current smoker Start:27-Feb-2018 Instruction Type:Patient Education How to access health informa tion online - Detail Indication:Current smoker Start:27-Feb-2018 Instruction Type:Patient Education Patient Instructions Indication:Current smoker Start:27-Feb-2018 Instruction Type:Provider Instructions for Treatment How to access health informa tion online Indication:Current smoker Start:05-Feb-2018 Instruction Type:Patient Education How to access health informa tion online - Detail Indication:Current smoker Start:05-Feb-2018 Instruction Type:Patient Education Patient Instructions Indication:Current smoker Start:05-Feb-2018 Instruction Type:Provider Instructions for Treatment How to access health informa tion online Indication:Current smoker Start:30-Jan-2018 Instruction Type:Patient Education How to access health informa tion online - Detail Indication:Current smoker Start:30-Jan-2018 Instruction Type:Patient Education Patient Instructions Indication:BMI 20.0-20.9, adult Start:30-Jan-2018 Instruction Type:Provider Instructions for Treatment How to access health informa tion online Indication:Hypothyroid Start:11-Jan-2018 Instruction Type:Patient Education How to access health informa tion online - Detail Indication:Hypothyroid Start:11-Jan-2018 Instruction Type:Patient Education Patient Instructions Indication:Hypothyroid Start:11-Jan-2018 Instruction Type:Provider Instructions for Treatment Name Dates Details How to access health informa tion online Indication:Current smoker Start:08-May-2019 Instruction Type:Patient Education How to access health informa tion online - Detail Indication:Current smoker Start:08-May-2019 Instruction Type:Patient Education Patient Instructions Indication:Current smoker Start:08-May-2019 Instruction Type:Provider Instructions for Treatment How to access health informa tion online Indication:Current smoker Start:05-Feb-2019 Instruction Type:Patient Education How to access health informa tion online - Detail Indication:Current smoker Start:05-Feb-2019 Instruction Type:Patient Education Patient Instructions Indication:Hypothyroid Start:05-Feb-2019 Instruction Type:Provider Instructions for Treatment How to access health informa tion online Indication:Current smoker Start:07-Jan-2019 Instruction Type:Patient Education How to access health informa tion online - Detail Indication:Current smoker Start:07-Jan-2019 Instruction Type:Patient Education Patient Instructions Indication:Current smoker Start:07-Jan-2019 Instruction Type:Provider Instructions for Treatment How to access health informa tion online Indication:Current smoker Start:22-Aug-2018 Instruction Type:Patient Education How to access health informa tion online - Detail Indication:Current smoker Start:22-Aug-2018 Instruction Type:Patient Education Patient Instructions Indication:Current smoker Start:22-Aug-2018 Instruction Type:Provider Instructions for Treatment How to access health informa tion online Indication:Current smoker Start:14-Aug-2018 Instruction Type:Patient Education How to access health informa tion online - Detail Indication:Current smoker Start:14-Aug-2018 Instruction Type:Patient Education Patient Instructions Indication:Current smoker Start:14-Aug-2018 Instruction Type:Provider Instructions for Treatment How to access health informa tion online Indication:Current smoker Start:11-Jul-2018 Instruction Type:Patient Education How to access health informa tion online - Detail Indication:Current smoker Start:11-Jul-2018 Instruction Type:Patient Education Patient Instructions Indication:BMI 20.0-20.9, adult Start:11-Jul-2018 Instruction Type:Provider Instructions for Treatment How to access health informa tion online Indication:Current smoker Start:09-Jul-2018 Instruction Type:Patient Education How to access health informa tion online - Detail Indication:Current smoker Start:09-Jul-2018 Instruction Type:Patient Education Patient Instructions Indication:Current smoker Start:09-Jul-2018 Instruction Type:Provider Instructions for Treatment How to access health informa tion online Indication:Current smoker Start:27-Feb-2018 Instruction Type:Patient Education How to access health informa tion online - Detail Indication:Current smoker Start:27-Feb-2018 Instruction Type:Patient Education Patient Instructions Indication:Current smoker Start:27-Feb-2018 Instruction Type:Provider Instructions for Treatment How to access health informa tion online Indication:Current smoker Start:05-Feb-2018 Instruction Type:Patient Education How to access health informa tion online - Detail Indication:Current smoker Start:05-Feb-2018 Instruction Type:Patient Education Patient Instructions Indication:Current smoker Start:05-Feb-2018 Instruction Type:Provider Instructions for Treatment How to access health informa tion online Indication:Current smoker Start:30-Jan-2018 Instruction Type:Patient Education How to access health informa tion online - Detail Indication:Current smoker Start:30-Jan-2018 Instruction Type:Patient Education Patient Instructions Indication:BMI 20.0-20.9, adult Start:30-Jan-2018 Instruction Type:Provider Instructions for Treatment How to access health informa tion online Indication:Hypothyroid Start:11-Jan-2018 Instruction Type:Patient Education How to access health informa tion online - Detail Indication:Hypothyroid Start:11-Jan-2018 Instruction Type:Patient Education Patient Instructions Indication:Hypothyroid Start:11-Jan-2018 Instruction Type:Provider Instructions for Treatment Name Dates Details How to access health informa tion online Indication:Current smoker Start:25-Dec-2019 Instruction Type:Patient Education How to access health informa tion online - Detail Indication:Current smoker Start:25-Dec-2019 Instruction Type:Patient Education Patient Instructions Indication:Current smoker Start:25-Dec-2019 Instruction Type:Provider Instructions for Treatment How to access health informa tion online Indication:Current smoker Start:11-Dec-2019 Instruction Type:Patient Education How to access health informa tion online - Detail Indication:Current smoker Start:11-Dec-2019 Instruction Type:Patient Education Patient Instructions Indication:Current smoker Start:11-Dec-2019 Instruction Type:Provider Instructions for Treatment How to access health informa tion online Indication:BMI less than 19,adult Start:30-Oct-2019 Instruction Type:Patient Education How to access health informa tion online - Detail Indication:BMI less than 19,adult Start:30-Oct-2019 Instruction Type:Patient Education Patient Instructions Indication:BMI less than 19,adult Start:30-Oct-2019 Instruction Type:Provider Instructions for Treatment How to access health informa tion online Indication:Current smoker Start:09-Oct-2019 Instruction Type:Patient Education How to access health informa tion online - Detail Indication:Current smoker Start:09-Oct-2019 Instruction Type:Patient Education Patient Instructions Indication:Current smoker Start:09-Oct-2019 Instruction Type:Provider Instructions for Treatment How to access health informa tion online Indication:Current smoker Start:07-Aug-2019 Instruction Type:Patient Education How to access health informa tion online - Detail Indication:Current smoker Start:07-Aug-2019 Instruction Type:Patient Education Patient Instructions Indication:Current smoker Start:07-Aug-2019 Instruction Type:Provider Instructions for Treatment How to access health informa tion online Indication:Current smoker Start:22-May-2019 Instruction Type:Patient Education How to access health informa tion online - Detail Indication:Current smoker Start:22-May-2019 Instruction Type:Patient Education Patient Instructions Indication:Body mass index (BMI) of 19.0-19.9 in adult Start:22-May-2019 Instruction Type:Provider Instructions for Treatment How to access health informa tion online Indication:Current smoker Start:08-May-2019 Instruction Type:Patient Education How to access health informa tion online - Detail Indication:Current smoker Start:08-May-2019 Instruction Type:Patient Education Patient Instructions Indication:Current smoker Start:08-May-2019 Instruction Type:Provider Instructions for Treatment How to access health informa tion online Indication:Current smoker Start:05-Feb-2019 Instruction Type:Patient Education How to access health informa tion online - Detail Indication:Current smoker Start:05-Feb-2019 Instruction Type:Patient Education Patient Instructions Indication:Hypothyroid Start:05-Feb-2019 Instruction Type:Provider Instructions for Treatment How to access health informa tion online Indication:Current smoker Start:07-Jan-2019 Instruction Type:Patient Education How to access health informa tion online - Detail Indication:Current smoker Start:07-Jan-2019 Instruction Type:Patient Education Patient Instructions Indication:Current smoker Start:07-Jan-2019 Instruction Type:Provider Instructions for Treatment How to access health informa tion online Indication:Current smoker Start:22-Aug-2018 Instruction Type:Patient Education How to access health informa tion online - Detail Indication:Current smoker Start:22-Aug-2018 Instruction Type:Patient Education Patient Instructions Indication:Current smoker Start:22-Aug-2018 Instruction Type:Provider Instructions for Treatment How to access health informa tion online Indication:Current smoker Start:14-Aug-2018 Instruction Type:Patient Education How to access health informa tion online - Detail Indication:Current smoker Start:14-Aug-2018 Instruction Type:Patient Education Patient Instructions Indication:Current smoker Start:14-Aug-2018 Instruction Type:Provider Instructions for Treatment How to access health informa tion online Indication:Current smoker Start:11-Jul-2018 Instruction Type:Patient Education How to access health informa tion online - Detail Indication:Current smoker Start:11-Jul-2018 Instruction Type:Patient Education Patient Instructions Indication:BMI 20.0-20.9, adult Start:11-Jul-2018 Instruction Type:Provider Instructions for Treatment How to access health informa tion online Indication:Current smoker Start:09-Jul-2018 Instruction Type:Patient Education How to access health informa tion online - Detail Indication:Current smoker Start:09-Jul-2018 Instruction Type:Patient Education Patient Instructions Indication:Current smoker Start:09-Jul-2018 Instruction Type:Provider Instructions for Treatment How to access health informa tion online Indication:Current smoker Start:27-Feb-2018 Instruction Type:Patient Education How to access health informa tion online - Detail Indication:Current smoker Start:27-Feb-2018 Instruction Type:Patient Education Patient Instructions Indication:Current smoker Start:27-Feb-2018 Instruction Type:Provider Instructions for Treatment How to access health informa tion online Indication:Current smoker Start:05-Feb-2018 Instruction Type:Patient Education How to access health informa tion online - Detail Indication:Current smoker Start:05-Feb-2018 Instruction Type:Patient Education Patient Instructions Indication:Current smoker Start:05-Feb-2018 Instruction Type:Provider Instructions for Treatment How to access health informa tion online Indication:Current smoker Start:30-Jan-2018 Instruction Type:Patient Education How to access health informa tion online - Detail Indication:Current smoker Start:30-Jan-2018 Instruction Type:Patient Education Patient Instructions Indication:BMI 20.0-20.9, adult Start:30-Jan-2018 Instruction Type:Provider Instructions for Treatment How to access health informa tion online Indication:Hypothyroid Start:11-Jan-2018 Instruction Type:Patient Education How to access health informa tion online - Detail Indication:Hypothyroid Start:11-Jan-2018 Instruction Type:Patient Education Patient Instructions Indication:Hypothyroid Start:11-Jan-2018 Instruction Type:Provider Instructions for Treatment Name Dates Details How to access health informa tion online Indication:BMI less than 19,adult Start:08-Jan-2020 Instruction Type:Patient Education How to access health informa tion online - Detail Indication:BMI less than 19,adult Start:08-Jan-2020 Instruction Type:Patient Education Patient Instructions Indication:BMI less than 19,adult Start:08-Jan-2020 Instruction Type:Provider Instructions for Treatment How to access health informa tion online Indication:Current smoker Start:25-Dec-2019 Instruction Type:Patient Education How to access health informa tion online - Detail Indication:Current smoker Start:25-Dec-2019 Instruction Type:Patient Education Patient Instructions Indication:Current smoker Start:25-Dec-2019 Instruction Type:Provider Instructions for Treatment How to access health informa tion online Indication:Current smoker Start:11-Dec-2019 Instruction Type:Patient Education How to access health informa tion online - Detail Indication:Current smoker Start:11-Dec-2019 Instruction Type:Patient Education Patient Instructions Indication:Current smoker Start:11-Dec-2019 Instruction Type:Provider Instructions for Treatment How to access health informa tion online Indication:BMI less than 19,adult Start:30-Oct-2019 Instruction Type:Patient Education How to access health informa tion online - Detail Indication:BMI less than 19,adult Start:30-Oct-2019 Instruction Type:Patient Education Patient Instructions Indication:BMI less than 19,adult Start:30-Oct-2019 Instruction Type:Provider Instructions for Treatment How to access health informa tion online Indication:Current smoker Start:09-Oct-2019 Instruction Type:Patient Education How to access health informa tion online - Detail Indication:Current smoker Start:09-Oct-2019 Instruction Type:Patient Education Patient Instructions Indication:Current smoker Start:09-Oct-2019 Instruction Type:Provider Instructions for Treatment How to access health informa tion online Indication:Current smoker Start:07-Aug-2019 Instruction Type:Patient Education How to access health informa tion online - Detail Indication:Current smoker Start:07-Aug-2019 Instruction Type:Patient Education Patient Instructions Indication:Current smoker Start:07-Aug-2019 Instruction Type:Provider Instructions for Treatment How to access health informa tion online Indication:Current smoker Start:22-May-2019 Instruction Type:Patient Education How to access health informa tion online - Detail Indication:Current smoker Start:22-May-2019 Instruction Type:Patient Education Patient Instructions Indication:Body mass index (BMI) of 19.0-19.9 in adult Start:22-May-2019 Instruction Type:Provider Instructions for Treatment How to access health informa tion online Indication:Current smoker Start:08-May-2019 Instruction Type:Patient Education How to access health informa tion online - Detail Indication:Current smoker Start:08-May-2019 Instruction Type:Patient Education Patient Instructions Indication:Current smoker Start:08-May-2019 Instruction Type:Provider Instructions for Treatment How to access health informa tion online Indication:Current smoker Start:05-Feb-2019 Instruction Type:Patient Education How to access health informa tion online - Detail Indication:Current smoker Start:05-Feb-2019 Instruction Type:Patient Education Patient Instructions Indication:Hypothyroid Start:05-Feb-2019 Instruction Type:Provider Instructions for Treatment How to access health informa tion online Indication:Current smoker Start:07-Jan-2019 Instruction Type:Patient Education How to access health informa tion online - Detail Indication:Current smoker Start:07-Jan-2019 Instruction Type:Patient Education Patient Instructions Indication:Current smoker Start:07-Jan-2019 Instruction Type:Provider Instructions for Treatment How to access health informa tion online Indication:Current smoker Start:22-Aug-2018 Instruction Type:Patient Education How to access health informa tion online - Detail Indication:Current smoker Start:22-Aug-2018 Instruction Type:Patient Education Patient Instructions Indication:Current smoker Start:22-Aug-2018 Instruction Type:Provider Instructions for Treatment How to access health informa tion online Indication:Current smoker Start:14-Aug-2018 Instruction Type:Patient Education How to access health informa tion online - Detail Indication:Current smoker Start:14-Aug-2018 Instruction Type:Patient Education Patient Instructions Indication:Current smoker Start:14-Aug-2018 Instruction Type:Provider Instructions for Treatment How to access health informa tion online Indication:Current smoker Start:11-Jul-2018 Instruction Type:Patient Education How to access health informa tion online - Detail Indication:Current smoker Start:11-Jul-2018 Instruction Type:Patient Education Patient Instructions Indication:BMI 20.0-20.9, adult Start:11-Jul-2018 Instruction Type:Provider Instructions for Treatment How to access health informa tion online Indication:Current smoker Start:09-Jul-2018 Instruction Type:Patient Education How to access health informa tion online - Detail Indication:Current smoker Start:09-Jul-2018 Instruction Type:Patient Education Patient Instructions Indication:Current smoker Start:09-Jul-2018 Instruction Type:Provider Instructions for Treatment How to access health informa tion online Indication:Current smoker Start:27-Feb-2018 Instruction Type:Patient Education How to access health informa tion online - Detail Indication:Current smoker Start:27-Feb-2018 Instruction Type:Patient Education Patient Instructions Indication:Current smoker Start:27-Feb-2018 Instruction Type:Provider Instructions for Treatment How to access health informa tion online Indication:Current smoker Start:05-Feb-2018 Instruction Type:Patient Education How to access health informa tion online - Detail Indication:Current smoker Start:05-Feb-2018 Instruction Type:Patient Education Patient Instructions Indication:Current smoker Start:05-Feb-2018 Instruction Type:Provider Instructions for Treatment How to access health informa tion online Indication:Current smoker Start:30-Jan-2018 Instruction Type:Patient Education How to access health informa tion online - Detail Indication:Current smoker Start:30-Jan-2018 Instruction Type:Patient Education Patient Instructions Indication:BMI 20.0-20.9, adult Start:30-Jan-2018 Instruction Type:Provider Instructions for Treatment How to access health informa tion online Indication:Hypothyroid Start:11-Jan-2018 Instruction Type:Patient Education How to access health informa tion online - Detail Indication:Hypothyroid Start:11-Jan-2018 Instruction Type:Patient Education Patient Instructions Indication:Hypothyroid Start:11-Jan-2018 Instruction Type:Provider Instructions for Treatment Name Dates Details How to access health informa tion online Indication:BMI less than 19,adult Start:08-Jan-2020 Instruction Type:Patient Education How to access health informa tion online - Detail Indication:BMI less than 19,adult Start:08-Jan-2020 Instruction Type:Patient Education Patient Instructions Indication:BMI less than 19,adult Start:08-Jan-2020 Instruction Type:Provider Instructions for Treatment How to access health informa tion online Indication:Current smoker Start:25-Dec-2019 Instruction Type:Patient Education How to access health informa tion online - Detail Indication:Current smoker Start:25-Dec-2019 Instruction Type:Patient Education Patient Instructions Indication:Current smoker Start:25-Dec-2019 Instruction Type:Provider Instructions for Treatment How to access health informa tion online Indication:Current smoker Start:11-Dec-2019 Instruction Type:Patient Education How to access health informa tion online - Detail Indication:Current smoker Start:11-Dec-2019 Instruction Type:Patient Education Patient Instructions Indication:Current smoker Start:11-Dec-2019 Instruction Type:Provider Instructions for Treatment How to access health informa tion online Indication:BMI less than 19,adult Start:30-Oct-2019 Instruction Type:Patient Education How to access health informa tion online - Detail Indication:BMI less than 19,adult Start:30-Oct-2019 Instruction Type:Patient Education Patient Instructions Indication:BMI less than 19,adult Start:30-Oct-2019 Instruction Type:Provider Instructions for Treatment How to access health informa tion online Indication:Current smoker Start:09-Oct-2019 Instruction Type:Patient Education How to access health informa tion online - Detail Indication:Current smoker Start:09-Oct-2019 Instruction Type:Patient Education Patient Instructions Indication:Current smoker Start:09-Oct-2019 Instruction Type:Provider Instructions for Treatment How to access health informa tion online Indication:Current smoker Start:07-Aug-2019 Instruction Type:Patient Education How to access health informa tion online - Detail Indication:Current smoker Start:07-Aug-2019 Instruction Type:Patient Education Patient Instructions Indication:Current smoker Start:07-Aug-2019 Instruction Type:Provider Instructions for Treatment How to access health informa tion online Indication:Current smoker Start:22-May-2019 Instruction Type:Patient Education How to access health informa tion online - Detail Indication:Current smoker Start:22-May-2019 Instruction Type:Patient Education Patient Instructions Indication:Body mass index (BMI) of 19.0-19.9 in adult Start:22-May-2019 Instruction Type:Provider Instructions for Treatment How to access health informa tion online Indication:Current smoker Start:08-May-2019 Instruction Type:Patient Education How to access health informa tion online - Detail Indication:Current smoker Start:08-May-2019 Instruction Type:Patient Education Patient Instructions Indication:Current smoker Start:08-May-2019 Instruction Type:Provider Instructions for Treatment How to access health informa tion online Indication:Current smoker Start:05-Feb-2019 Instruction Type:Patient Education How to access health informa tion online - Detail Indication:Current smoker Start:05-Feb-2019 Instruction Type:Patient Education Patient Instructions Indication:Hypothyroid Start:05-Feb-2019 Instruction Type:Provider Instructions for Treatment How to access health informa tion online Indication:Current smoker Start:07-Jan-2019 Instruction Type:Patient Education How to access health informa tion online - Detail Indication:Current smoker Start:07-Jan-2019 Instruction Type:Patient Education Patient Instructions Indication:Current smoker Start:07-Jan-2019 Instruction Type:Provider Instructions for Treatment How to access health informa tion online Indication:Current smoker Start:22-Aug-2018 Instruction Type:Patient Education How to access health informa tion online - Detail Indication:Current smoker Start:22-Aug-2018 Instruction Type:Patient Education Patient Instructions Indication:Current smoker Start:22-Aug-2018 Instruction Type:Provider Instructions for Treatment How to access health informa tion online Indication:Current smoker Start:14-Aug-2018 Instruction Type:Patient Education How to access health informa tion online - Detail Indication:Current smoker Start:14-Aug-2018 Instruction Type:Patient Education Patient Instructions Indication:Current smoker Start:14-Aug-2018 Instruction Type:Provider Instructions for Treatment How to access health informa tion online Indication:Current smoker Start:11-Jul-2018 Instruction Type:Patient Education How to access health informa tion online - Detail Indication:Current smoker Start:11-Jul-2018 Instruction Type:Patient Education Patient Instructions Indication:BMI 20.0-20.9, adult Start:11-Jul-2018 Instruction Type:Provider Instructions for Treatment How to access health informa tion online Indication:Current smoker Start:09-Jul-2018 Instruction Type:Patient Education How to access health informa tion online - Detail Indication:Current smoker Start:09-Jul-2018 Instruction Type:Patient Education Patient Instructions Indication:Current smoker Start:09-Jul-2018 Instruction Type:Provider Instructions for Treatment How to access health informa tion online Indication:Current smoker Start:27-Feb-2018 Instruction Type:Patient Education How to access health informa tion online - Detail Indication:Current smoker Start:27-Feb-2018 Instruction Type:Patient Education Patient Instructions Indication:Current smoker Start:27-Feb-2018 Instruction Type:Provider Instructions for Treatment How to access health informa tion online Indication:Current smoker Start:05-Feb-2018 Instruction Type:Patient Education How to access health informa tion online - Detail Indication:Current smoker Start:05-Feb-2018 Instruction Type:Patient Education Patient Instructions Indication:Current smoker Start:05-Feb-2018 Instruction Type:Provider Instructions for Treatment How to access health informa tion online Indication:Current smoker Start:30-Jan-2018 Instruction Type:Patient Education How to access health informa tion online - Detail Indication:Current smoker Start:30-Jan-2018 Instruction Type:Patient Education Patient Instructions Indication:BMI 20.0-20.9, adult Start:30-Jan-2018 Instruction Type:Provider Instructions for Treatment How to access health informa tion online Indication:Hypothyroid Start:11-Jan-2018 Instruction Type:Patient Education How to access health informa tion online - Detail Indication:Hypothyroid Start:11-Jan-2018 Instruction Type:Patient Education Patient Instructions Indication:Hypothyroid Start:11-Jan-2018 Instruction Type:Provider Instructions for Treatment Name Dates Details How to access health informa tion online Indication:BMI less than 19,adult Start:08-Jan-2020 Instruction Type:Patient Education How to access health informa tion online - Detail Indication:BMI less than 19,adult Start:08-Jan-2020 Instruction Type:Patient Education Patient Instructions Indication:BMI less than 19,adult Start:08-Jan-2020 Instruction Type:Provider Instructions for Treatment How to access health informa tion online Indication:Current smoker Start:25-Dec-2019 Instruction Type:Patient Education How to access health informa tion online - Detail Indication:Current smoker Start:25-Dec-2019 Instruction Type:Patient Education Patient Instructions Indication:Current smoker Start:25-Dec-2019 Instruction Type:Provider Instructions for Treatment How to access health informa tion online Indication:Current smoker Start:11-Dec-2019 Instruction Type:Patient Education How to access health informa tion online - Detail Indication:Current smoker Start:11-Dec-2019 Instruction Type:Patient Education Patient Instructions Indication:Current smoker Start:11-Dec-2019 Instruction Type:Provider Instructions for Treatment How to access health informa tion online Indication:BMI less than 19,adult Start:30-Oct-2019 Instruction Type:Patient Education How to access health informa tion online - Detail Indication:BMI less than 19,adult Start:30-Oct-2019 Instruction Type:Patient Education Patient Instructions Indication:BMI less than 19,adult Start:30-Oct-2019 Instruction Type:Provider Instructions for Treatment How to access health informa tion online Indication:Current smoker Start:09-Oct-2019 Instruction Type:Patient Education How to access health informa tion online - Detail Indication:Current smoker Start:09-Oct-2019 Instruction Type:Patient Education Patient Instructions Indication:Current smoker Start:09-Oct-2019 Instruction Type:Provider Instructions for Treatment How to access health informa tion online Indication:Current smoker Start:07-Aug-2019 Instruction Type:Patient Education How to access health informa tion online - Detail Indication:Current smoker Start:07-Aug-2019 Instruction Type:Patient Education Patient Instructions Indication:Current smoker Start:07-Aug-2019 Instruction Type:Provider Instructions for Treatment How to access health informa tion online Indication:Current smoker Start:22-May-2019 Instruction Type:Patient Education How to access health informa tion online - Detail Indication:Current smoker Start:22-May-2019 Instruction Type:Patient Education Patient Instructions Indication:Body mass index (BMI) of 19.0-19.9 in adult Start:22-May-2019 Instruction Type:Provider Instructions for Treatment How to access health informa tion online Indication:Current smoker Start:08-May-2019 Instruction Type:Patient Education How to access health informa tion online - Detail Indication:Current smoker Start:08-May-2019 Instruction Type:Patient Education Patient Instructions Indication:Current smoker Start:08-May-2019 Instruction Type:Provider Instructions for Treatment How to access health informa tion online Indication:Current smoker Start:05-Feb-2019 Instruction Type:Patient Education How to access health informa tion online - Detail Indication:Current smoker Start:05-Feb-2019 Instruction Type:Patient Education Patient Instructions Indication:Hypothyroid Start:05-Feb-2019 Instruction Type:Provider Instructions for Treatment How to access health informa tion online Indication:Current smoker Start:07-Jan-2019 Instruction Type:Patient Education How to access health informa tion online - Detail Indication:Current smoker Start:07-Jan-2019 Instruction Type:Patient Education Patient Instructions Indication:Current smoker Start:07-Jan-2019 Instruction Type:Provider Instructions for Treatment How to access health informa tion online Indication:Current smoker Start:22-Aug-2018 Instruction Type:Patient Education How to access health informa tion online - Detail Indication:Current smoker Start:22-Aug-2018 Instruction Type:Patient Education Patient Instructions Indication:Current smoker Start:22-Aug-2018 Instruction Type:Provider Instructions for Treatment How to access health informa tion online Indication:Current smoker Start:14-Aug-2018 Instruction Type:Patient Education How to access health informa tion online - Detail Indication:Current smoker Start:14-Aug-2018 Instruction Type:Patient Education Patient Instructions Indication:Current smoker Start:14-Aug-2018 Instruction Type:Provider Instructions for Treatment How to access health informa tion online Indication:Current smoker Start:11-Jul-2018 Instruction Type:Patient Education How to access health informa tion online - Detail Indication:Current smoker Start:11-Jul-2018 Instruction Type:Patient Education Patient Instructions Indication:BMI 20.0-20.9, adult Start:11-Jul-2018 Instruction Type:Provider Instructions for Treatment How to access health informa tion online Indication:Current smoker Start:09-Jul-2018 Instruction Type:Patient Education How to access health informa tion online - Detail Indication:Current smoker Start:09-Jul-2018 Instruction Type:Patient Education Patient Instructions Indication:Current smoker Start:09-Jul-2018 Instruction Type:Provider Instructions for Treatment How to access health informa tion online Indication:Current smoker Start:27-Feb-2018 Instruction Type:Patient Education How to access health informa tion online - Detail Indication:Current smoker Start:27-Feb-2018 Instruction Type:Patient Education Patient Instructions Indication:Current smoker Start:27-Feb-2018 Instruction Type:Provider Instructions for Treatment How to access health informa tion online Indication:Current smoker Start:05-Feb-2018 Instruction Type:Patient Education How to access health informa tion online - Detail Indication:Current smoker Start:05-Feb-2018 Instruction Type:Patient Education Patient Instructions Indication:Current smoker Start:05-Feb-2018 Instruction Type:Provider Instructions for Treatment How to access health informa tion online Indication:Current smoker Start:30-Jan-2018 Instruction Type:Patient Education How to access health informa tion online - Detail Indication:Current smoker Start:30-Jan-2018 Instruction Type:Patient Education Patient Instructions Indication:BMI 20.0-20.9, adult Start:30-Jan-2018 Instruction Type:Provider Instructions for Treatment How to access health informa tion online Indication:Hypothyroid Start:11-Jan-2018 Instruction Type:Patient Education How to access health informa tion online - Detail Indication:Hypothyroid Start:11-Jan-2018 Instruction Type:Patient Education Patient Instructions Indication:Hypothyroid Start:11-Jan-2018 Instruction Type:Provider Instructions for Treatment Name Dates Details How to access health informa tion online Indication:BMI less than 19,adult Start:08-Jan-2020 Instruction Type:Patient Education How to access health informa tion online - Detail Indication:BMI less than 19,adult Start:08-Jan-2020 Instruction Type:Patient Education Patient Instructions Indication:BMI less than 19,adult Start:08-Jan-2020 Instruction Type:Provider Instructions for Treatment How to access health informa tion online Indication:Current smoker Start:25-Dec-2019 Instruction Type:Patient Education How to access health informa tion online - Detail Indication:Current smoker Start:25-Dec-2019 Instruction Type:Patient Education Patient Instructions Indication:Current smoker Start:25-Dec-2019 Instruction Type:Provider Instructions for Treatment How to access health informa tion online Indication:Current smoker Start:11-Dec-2019 Instruction Type:Patient Education How to access health informa tion online - Detail Indication:Current smoker Start:11-Dec-2019 Instruction Type:Patient Education Patient Instructions Indication:Current smoker Start:11-Dec-2019 Instruction Type:Provider Instructions for Treatment How to access health informa tion online Indication:BMI less than 19,adult Start:30-Oct-2019 Instruction Type:Patient Education How to access health informa tion online - Detail Indication:BMI less than 19,adult Start:30-Oct-2019 Instruction Type:Patient Education Patient Instructions Indication:BMI less than 19,adult Start:30-Oct-2019 Instruction Type:Provider Instructions for Treatment How to access health informa tion online Indication:Current smoker Start:09-Oct-2019 Instruction Type:Patient Education How to access health informa tion online - Detail Indication:Current smoker Start:09-Oct-2019 Instruction Type:Patient Education Patient Instructions Indication:Current smoker Start:09-Oct-2019 Instruction Type:Provider Instructions for Treatment How to access health informa tion online Indication:Current smoker Start:07-Aug-2019 Instruction Type:Patient Education How to access health informa tion online - Detail Indication:Current smoker Start:07-Aug-2019 Instruction Type:Patient Education Patient Instructions Indication:Current smoker Start:07-Aug-2019 Instruction Type:Provider Instructions for Treatment How to access health informa tion online Indication:Current smoker Start:22-May-2019 Instruction Type:Patient Education How to access health informa tion online - Detail Indication:Current smoker Start:22-May-2019 Instruction Type:Patient Education Patient Instructions Indication:Body mass index (BMI) of 19.0-19.9 in adult Start:22-May-2019 Instruction Type:Provider Instructions for Treatment How to access health informa tion online Indication:Current smoker Start:08-May-2019 Instruction Type:Patient Education How to access health informa tion online - Detail Indication:Current smoker Start:08-May-2019 Instruction Type:Patient Education Patient Instructions Indication:Current smoker Start:08-May-2019 Instruction Type:Provider Instructions for Treatment How to access health informa tion online Indication:Current smoker Start:05-Feb-2019 Instruction Type:Patient Education How to access health informa tion online - Detail Indication:Current smoker Start:05-Feb-2019 Instruction Type:Patient Education Patient Instructions Indication:Hypothyroid Start:05-Feb-2019 Instruction Type:Provider Instructions for Treatment How to access health informa tion online Indication:Current smoker Start:07-Jan-2019 Instruction Type:Patient Education How to access health informa tion online - Detail Indication:Current smoker Start:07-Jan-2019 Instruction Type:Patient Education Patient Instructions Indication:Current smoker Start:07-Jan-2019 Instruction Type:Provider Instructions for Treatment How to access health informa tion online Indication:Current smoker Start:22-Aug-2018 Instruction Type:Patient Education How to access health informa tion online - Detail Indication:Current smoker Start:22-Aug-2018 Instruction Type:Patient Education Patient Instructions Indication:Current smoker Start:22-Aug-2018 Instruction Type:Provider Instructions for Treatment How to access health informa tion online Indication:Current smoker Start:14-Aug-2018 Instruction Type:Patient Education How to access health informa tion online - Detail Indication:Current smoker Start:14-Aug-2018 Instruction Type:Patient Education Patient Instructions Indication:Current smoker Start:14-Aug-2018 Instruction Type:Provider Instructions for Treatment How to access health informa tion online Indication:Current smoker Start:11-Jul-2018 Instruction Type:Patient Education How to access health informa tion online - Detail Indication:Current smoker Start:11-Jul-2018 Instruction Type:Patient Education Patient Instructions Indication:BMI 20.0-20.9, adult Start:11-Jul-2018 Instruction Type:Provider Instructions for Treatment How to access health informa tion online Indication:Current smoker Start:09-Jul-2018 Instruction Type:Patient Education How to access health informa tion online - Detail Indication:Current smoker Start:09-Jul-2018 Instruction Type:Patient Education Patient Instructions Indication:Current smoker Start:09-Jul-2018 Instruction Type:Provider Instructions for Treatment How to access health informa tion online Indication:Current smoker Start:27-Feb-2018 Instruction Type:Patient Education How to access health informa tion online - Detail Indication:Current smoker Start:27-Feb-2018 Instruction Type:Patient Education Patient Instructions Indication:Current smoker Start:27-Feb-2018 Instruction Type:Provider Instructions for Treatment How to access health informa tion online Indication:Current smoker Start:05-Feb-2018 Instruction Type:Patient Education How to access health informa tion online - Detail Indication:Current smoker Start:05-Feb-2018 Instruction Type:Patient Education Patient Instructions Indication:Current smoker Start:05-Feb-2018 Instruction Type:Provider Instructions for Treatment How to access health informa tion online Indication:Current smoker Start:30-Jan-2018 Instruction Type:Patient Education How to access health informa tion online - Detail Indication:Current smoker Start:30-Jan-2018 Instruction Type:Patient Education Patient Instructions Indication:BMI 20.0-20.9, adult Start:30-Jan-2018 Instruction Type:Provider Instructions for Treatment How to access health informa tion online Indication:Hypothyroid Start:11-Jan-2018 Instruction Type:Patient Education How to access health informa tion online - Detail Indication:Hypothyroid Start:11-Jan-2018 Instruction Type:Patient Education Patient Instructions Indication:Hypothyroid Start:11-Jan-2018 Instruction Type:Provider Instructions for Treatment Name Dates Details How to access health informa tion online Indication:BMI less than 19,adult Start:08-Jan-2020 Instruction Type:Patient Education How to access health informa tion online - Detail Indication:BMI less than 19,adult Start:08-Jan-2020 Instruction Type:Patient Education Patient Instructions Indication:BMI less than 19,adult Start:08-Jan-2020 Instruction Type:Provider Instructions for Treatment How to access health informa tion online Indication:Current smoker Start:25-Dec-2019 Instruction Type:Patient Education How to access health informa tion online - Detail Indication:Current smoker Start:25-Dec-2019 Instruction Type:Patient Education Patient Instructions Indication:Current smoker Start:25-Dec-2019 Instruction Type:Provider Instructions for Treatment How to access health informa tion online Indication:Current smoker Start:11-Dec-2019 Instruction Type:Patient Education How to access health informa tion online - Detail Indication:Current smoker Start:11-Dec-2019 Instruction Type:Patient Education Patient Instructions Indication:Current smoker Start:11-Dec-2019 Instruction Type:Provider Instructions for Treatment How to access health informa tion online Indication:BMI less than 19,adult Start:30-Oct-2019 Instruction Type:Patient Education How to access health informa tion online - Detail Indication:BMI less than 19,adult Start:30-Oct-2019 Instruction Type:Patient Education Patient Instructions Indication:BMI less than 19,adult Start:30-Oct-2019 Instruction Type:Provider Instructions for Treatment How to access health informa tion online Indication:Current smoker Start:09-Oct-2019 Instruction Type:Patient Education How to access health informa tion online - Detail Indication:Current smoker Start:09-Oct-2019 Instruction Type:Patient Education Patient Instructions Indication:Current smoker Start:09-Oct-2019 Instruction Type:Provider Instructions for Treatment How to access health informa tion online Indication:Current smoker Start:07-Aug-2019 Instruction Type:Patient Education How to access health informa tion online - Detail Indication:Current smoker Start:07-Aug-2019 Instruction Type:Patient Education Patient Instructions Indication:Current smoker Start:07-Aug-2019 Instruction Type:Provider Instructions for Treatment How to access health informa tion online Indication:Current smoker Start:22-May-2019 Instruction Type:Patient Education How to access health informa tion online - Detail Indication:Current smoker Start:22-May-2019 Instruction Type:Patient Education Patient Instructions Indication:Body mass index (BMI) of 19.0-19.9 in adult Start:22-May-2019 Instruction Type:Provider Instructions for Treatment How to access health informa tion online Indication:Current smoker Start:08-May-2019 Instruction Type:Patient Education How to access health informa tion online - Detail Indication:Current smoker Start:08-May-2019 Instruction Type:Patient Education Patient Instructions Indication:Current smoker Start:08-May-2019 Instruction Type:Provider Instructions for Treatment How to access health informa tion online Indication:Current smoker Start:05-Feb-2019 Instruction Type:Patient Education How to access health informa tion online - Detail Indication:Current smoker Start:05-Feb-2019 Instruction Type:Patient Education Patient Instructions Indication:Hypothyroid Start:05-Feb-2019 Instruction Type:Provider Instructions for Treatment How to access health informa tion online Indication:Current smoker Start:07-Jan-2019 Instruction Type:Patient Education How to access health informa tion online - Detail Indication:Current smoker Start:07-Jan-2019 Instruction Type:Patient Education Patient Instructions Indication:Current smoker Start:07-Jan-2019 Instruction Type:Provider Instructions for Treatment How to access health informa tion online Indication:Current smoker Start:22-Aug-2018 Instruction Type:Patient Education How to access health informa tion online - Detail Indication:Current smoker Start:22-Aug-2018 Instruction Type:Patient Education Patient Instructions Indication:Current smoker Start:22-Aug-2018 Instruction Type:Provider Instructions for Treatment How to access health informa tion online Indication:Current smoker Start:14-Aug-2018 Instruction Type:Patient Education How to access health informa tion online - Detail Indication:Current smoker Start:14-Aug-2018 Instruction Type:Patient Education Patient Instructions Indication:Current smoker Start:14-Aug-2018 Instruction Type:Provider Instructions for Treatment How to access health informa tion online Indication:Current smoker Start:11-Jul-2018 Instruction Type:Patient Education How to access health informa tion online - Detail Indication:Current smoker Start:11-Jul-2018 Instruction Type:Patient Education Patient Instructions Indication:BMI 20.0-20.9, adult Start:11-Jul-2018 Instruction Type:Provider Instructions for Treatment How to access health informa tion online Indication:Current smoker Start:09-Jul-2018 Instruction Type:Patient Education How to access health informa tion online - Detail Indication:Current smoker Start:09-Jul-2018 Instruction Type:Patient Education Patient Instructions Indication:Current smoker Start:09-Jul-2018 Instruction Type:Provider Instructions for Treatment How to access health informa tion online Indication:Current smoker Start:27-Feb-2018 Instruction Type:Patient Education How to access health informa tion online - Detail Indication:Current smoker Start:27-Feb-2018 Instruction Type:Patient Education Patient Instructions Indication:Current smoker Start:27-Feb-2018 Instruction Type:Provider Instructions for Treatment How to access health informa tion online Indication:Current smoker Start:05-Feb-2018 Instruction Type:Patient Education How to access health informa tion online - Detail Indication:Current smoker Start:05-Feb-2018 Instruction Type:Patient Education Patient Instructions Indication:Current smoker Start:05-Feb-2018 Instruction Type:Provider Instructions for Treatment How to access health informa tion online Indication:Current smoker Start:30-Jan-2018 Instruction Type:Patient Education How to access health informa tion online - Detail Indication:Current smoker Start:30-Jan-2018 Instruction Type:Patient Education Patient Instructions Indication:BMI 20.0-20.9, adult Start:30-Jan-2018 Instruction Type:Provider Instructions for Treatment How to access health informa tion online Indication:Hypothyroid Start:11-Jan-2018 Instruction Type:Patient Education How to access health informa tion online - Detail Indication:Hypothyroid Start:11-Jan-2018 Instruction Type:Patient Education Patient Instructions Indication:Hypothyroid Start:11-Jan-2018 Instruction Type:Provider Instructions for Treatment Name Dates Details How to access health informa tion online Indication:Current smoker Start:24-Mar-2020 Instruction Type:Patient Education How to access health informa tion online - Detail Indication:Current smoker Start:24-Mar-2020 Instruction Type:Patient Education Patient Instructions Indication:Current smoker Start:24-Mar-2020 Instruction Type:Provider Instructions for Treatment How to access health informa tion online Indication:BMI less than 19,adult Start:08-Jan-2020 Instruction Type:Patient Education How to access health informa tion online - Detail Indication:BMI less than 19,adult Start:08-Jan-2020 Instruction Type:Patient Education Patient Instructions Indication:BMI less than 19,adult Start:08-Jan-2020 Instruction Type:Provider Instructions for Treatment How to access health informa tion online Indication:Current smoker Start:25-Dec-2019 Instruction Type:Patient Education How to access health informa tion online - Detail Indication:Current smoker Start:25-Dec-2019 Instruction Type:Patient Education Patient Instructions Indication:Current smoker Start:25-Dec-2019 Instruction Type:Provider Instructions for Treatment How to access health informa tion online Indication:Current smoker Start:11-Dec-2019 Instruction Type:Patient Education How to access health informa tion online - Detail Indication:Current smoker Start:11-Dec-2019 Instruction Type:Patient Education Patient Instructions Indication:Current smoker Start:11-Dec-2019 Instruction Type:Provider Instructions for Treatment How to access health informa tion online Indication:BMI less than 19,adult Start:30-Oct-2019 Instruction Type:Patient Education How to access health informa tion online - Detail Indication:BMI less than 19,adult Start:30-Oct-2019 Instruction Type:Patient Education Patient Instructions Indication:BMI less than 19,adult Start:30-Oct-2019 Instruction Type:Provider Instructions for Treatment How to access health informa tion online Indication:Current smoker Start:09-Oct-2019 Instruction Type:Patient Education How to access health informa tion online - Detail Indication:Current smoker Start:09-Oct-2019 Instruction Type:Patient Education Patient Instructions Indication:Current smoker Start:09-Oct-2019 Instruction Type:Provider Instructions for Treatment How to access health informa tion online Indication:Current smoker Start:07-Aug-2019 Instruction Type:Patient Education How to access health informa tion online - Detail Indication:Current smoker Start:07-Aug-2019 Instruction Type:Patient Education Patient Instructions Indication:Current smoker Start:07-Aug-2019 Instruction Type:Provider Instructions for Treatment How to access health informa tion online Indication:Current smoker Start:22-May-2019 Instruction Type:Patient Education How to access health informa tion online - Detail Indication:Current smoker Start:22-May-2019 Instruction Type:Patient Education Patient Instructions Indication:Body mass index (BMI) of 19.0-19.9 in adult Start:22-May-2019 Instruction Type:Provider Instructions for Treatment How to access health informa tion online Indication:Current smoker Start:08-May-2019 Instruction Type:Patient Education How to access health informa tion online - Detail Indication:Current smoker Start:08-May-2019 Instruction Type:Patient Education Patient Instructions Indication:Current smoker Start:08-May-2019 Instruction Type:Provider Instructions for Treatment How to access health informa tion online Indication:Current smoker Start:05-Feb-2019 Instruction Type:Patient Education How to access health informa tion online - Detail Indication:Current smoker Start:05-Feb-2019 Instruction Type:Patient Education Patient Instructions Indication:Hypothyroid Start:05-Feb-2019 Instruction Type:Provider Instructions for Treatment How to access health informa tion online Indication:Current smoker Start:07-Jan-2019 Instruction Type:Patient Education How to access health informa tion online - Detail Indication:Current smoker Start:07-Jan-2019 Instruction Type:Patient Education Patient Instructions Indication:Current smoker Start:07-Jan-2019 Instruction Type:Provider Instructions for Treatment How to access health informa tion online Indication:Current smoker Start:22-Aug-2018 Instruction Type:Patient Education How to access health informa tion online - Detail Indication:Current smoker Start:22-Aug-2018 Instruction Type:Patient Education Patient Instructions Indication:Current smoker Start:22-Aug-2018 Instruction Type:Provider Instructions for Treatment How to access health informa tion online Indication:Current smoker Start:14-Aug-2018 Instruction Type:Patient Education How to access health informa tion online - Detail Indication:Current smoker Start:14-Aug-2018 Instruction Type:Patient Education Patient Instructions Indication:Current smoker Start:14-Aug-2018 Instruction Type:Provider Instructions for Treatment How to access health informa tion online Indication:Current smoker Start:11-Jul-2018 Instruction Type:Patient Education How to access health informa tion online - Detail Indication:Current smoker Start:11-Jul-2018 Instruction Type:Patient Education Patient Instructions Indication:BMI 20.0-20.9, adult Start:11-Jul-2018 Instruction Type:Provider Instructions for Treatment How to access health informa tion online Indication:Current smoker Start:09-Jul-2018 Instruction Type:Patient Education How to access health informa tion online - Detail Indication:Current smoker Start:09-Jul-2018 Instruction Type:Patient Education Patient Instructions Indication:Current smoker Start:09-Jul-2018 Instruction Type:Provider Instructions for Treatment How to access health informa tion online Indication:Current smoker Start:27-Feb-2018 Instruction Type:Patient Education How to access health informa tion online - Detail Indication:Current smoker Start:27-Feb-2018 Instruction Type:Patient Education Patient Instructions Indication:Current smoker Start:27-Feb-2018 Instruction Type:Provider Instructions for Treatment How to access health informa tion online Indication:Current smoker Start:05-Feb-2018 Instruction Type:Patient Education How to access health informa tion online - Detail Indication:Current smoker Start:05-Feb-2018 Instruction Type:Patient Education Patient Instructions Indication:Current smoker Start:05-Feb-2018 Instruction Type:Provider Instructions for Treatment How to access health informa tion online Indication:Current smoker Start:30-Jan-2018 Instruction Type:Patient Education How to access health informa tion online - Detail Indication:Current smoker Start:30-Jan-2018 Instruction Type:Patient Education Patient Instructions Indication:BMI 20.0-20.9, adult Start:30-Jan-2018 Instruction Type:Provider Instructions for Treatment How to access health informa tion online Indication:Hypothyroid Start:11-Jan-2018 Instruction Type:Patient Education How to access health informa tion online - Detail Indication:Hypothyroid Start:11-Jan-2018 Instruction Type:Patient Education Patient Instructions Indication:Hypothyroid Start:11-Jan-2018 Instruction Type:Provider Instructions for Treatment Name Dates Details How to access health informa tion online Indication:Current smoker Start:24-Mar-2020 Instruction Type:Patient Education How to access health informa tion online - Detail Indication:Current smoker Start:24-Mar-2020 Instruction Type:Patient Education Patient Instructions Indication:Current smoker Start:24-Mar-2020 Instruction Type:Provider Instructions for Treatment How to access health informa tion online Indication:BMI less than 19,adult Start:08-Jan-2020 Instruction Type:Patient Education How to access health informa tion online - Detail Indication:BMI less than 19,adult Start:08-Jan-2020 Instruction Type:Patient Education Patient Instructions Indication:BMI less than 19,adult Start:08-Jan-2020 Instruction Type:Provider Instructions for Treatment How to access health informa tion online Indication:Current smoker Start:25-Dec-2019 Instruction Type:Patient Education How to access health informa tion online - Detail Indication:Current smoker Start:25-Dec-2019 Instruction Type:Patient Education Patient Instructions Indication:Current smoker Start:25-Dec-2019 Instruction Type:Provider Instructions for Treatment How to access health informa tion online Indication:Current smoker Start:11-Dec-2019 Instruction Type:Patient Education How to access health informa tion online - Detail Indication:Current smoker Start:11-Dec-2019 Instruction Type:Patient Education Patient Instructions Indication:Current smoker Start:11-Dec-2019 Instruction Type:Provider Instructions for Treatment How to access health informa tion online Indication:BMI less than 19,adult Start:30-Oct-2019 Instruction Type:Patient Education How to access health informa tion online - Detail Indication:BMI less than 19,adult Start:30-Oct-2019 Instruction Type:Patient Education Patient Instructions Indication:BMI less than 19,adult Start:30-Oct-2019 Instruction Type:Provider Instructions for Treatment How to access health informa tion online Indication:Current smoker Start:09-Oct-2019 Instruction Type:Patient Education How to access health informa tion online - Detail Indication:Current smoker Start:09-Oct-2019 Instruction Type:Patient Education Patient Instructions Indication:Current smoker Start:09-Oct-2019 Instruction Type:Provider Instructions for Treatment How to access health informa tion online Indication:Current smoker Start:07-Aug-2019 Instruction Type:Patient Education How to access health informa tion online - Detail Indication:Current smoker Start:07-Aug-2019 Instruction Type:Patient Education Patient Instructions Indication:Current smoker Start:07-Aug-2019 Instruction Type:Provider Instructions for Treatment How to access health informa tion online Indication:Current smoker Start:22-May-2019 Instruction Type:Patient Education How to access health informa tion online - Detail Indication:Current smoker Start:22-May-2019 Instruction Type:Patient Education Patient Instructions Indication:Body mass index (BMI) of 19.0-19.9 in adult Start:22-May-2019 Instruction Type:Provider Instructions for Treatment How to access health informa tion online Indication:Current smoker Start:08-May-2019 Instruction Type:Patient Education How to access health informa tion online - Detail Indication:Current smoker Start:08-May-2019 Instruction Type:Patient Education Patient Instructions Indication:Current smoker Start:08-May-2019 Instruction Type:Provider Instructions for Treatment How to access health informa tion online Indication:Current smoker Start:05-Feb-2019 Instruction Type:Patient Education How to access health informa tion online - Detail Indication:Current smoker Start:05-Feb-2019 Instruction Type:Patient Education Patient Instructions Indication:Hypothyroid Start:05-Feb-2019 Instruction Type:Provider Instructions for Treatment How to access health informa tion online Indication:Current smoker Start:07-Jan-2019 Instruction Type:Patient Education How to access health informa tion online - Detail Indication:Current smoker Start:07-Jan-2019 Instruction Type:Patient Education Patient Instructions Indication:Current smoker Start:07-Jan-2019 Instruction Type:Provider Instructions for Treatment How to access health informa tion online Indication:Current smoker Start:22-Aug-2018 Instruction Type:Patient Education How to access health informa tion online - Detail Indication:Current smoker Start:22-Aug-2018 Instruction Type:Patient Education Patient Instructions Indication:Current smoker Start:22-Aug-2018 Instruction Type:Provider Instructions for Treatment How to access health informa tion online Indication:Current smoker Start:14-Aug-2018 Instruction Type:Patient Education How to access health informa tion online - Detail Indication:Current smoker Start:14-Aug-2018 Instruction Type:Patient Education Patient Instructions Indication:Current smoker Start:14-Aug-2018 Instruction Type:Provider Instructions for Treatment How to access health informa tion online Indication:Current smoker Start:11-Jul-2018 Instruction Type:Patient Education How to access health informa tion online - Detail Indication:Current smoker Start:11-Jul-2018 Instruction Type:Patient Education Patient Instructions Indication:BMI 20.0-20.9, adult Start:11-Jul-2018 Instruction Type:Provider Instructions for Treatment How to access health informa tion online Indication:Current smoker Start:09-Jul-2018 Instruction Type:Patient Education How to access health informa tion online - Detail Indication:Current smoker Start:09-Jul-2018 Instruction Type:Patient Education Patient Instructions Indication:Current smoker Start:09-Jul-2018 Instruction Type:Provider Instructions for Treatment How to access health informa tion online Indication:Current smoker Start:27-Feb-2018 Instruction Type:Patient Education How to access health informa tion online - Detail Indication:Current smoker Start:27-Feb-2018 Instruction Type:Patient Education Patient Instructions Indication:Current smoker Start:27-Feb-2018 Instruction Type:Provider Instructions for Treatment How to access health informa tion online Indication:Current smoker Start:05-Feb-2018 Instruction Type:Patient Education How to access health informa tion online - Detail Indication:Current smoker Start:05-Feb-2018 Instruction Type:Patient Education Patient Instructions Indication:Current smoker Start:05-Feb-2018 Instruction Type:Provider Instructions for Treatment How to access health informa tion online Indication:Current smoker Start:30-Jan-2018 Instruction Type:Patient Education How to access health informa tion online - Detail Indication:Current smoker Start:30-Jan-2018 Instruction Type:Patient Education Patient Instructions Indication:BMI 20.0-20.9, adult Start:30-Jan-2018 Instruction Type:Provider Instructions for Treatment How to access health informa tion online Indication:Hypothyroid Start:11-Jan-2018 Instruction Type:Patient Education How to access health informa tion online - Detail Indication:Hypothyroid Start:11-Jan-2018 Instruction Type:Patient Education Patient Instructions Indication:Hypothyroid Start:11-Jan-2018 Instruction Type:Provider Instructions for Treatment Name Dates Details How to access health informa tion online Indication:Current smoker Start:24-Mar-2020 Instruction Type:Patient Education How to access health informa tion online - Detail Indication:Current smoker Start:24-Mar-2020 Instruction Type:Patient Education Patient Instructions Indication:Current smoker Start:24-Mar-2020 Instruction Type:Provider Instructions for Treatment How to access health informa tion online Indication:BMI less than 19,adult Start:08-Jan-2020 Instruction Type:Patient Education How to access health informa tion online - Detail Indication:BMI less than 19,adult Start:08-Jan-2020 Instruction Type:Patient Education Patient Instructions Indication:BMI less than 19,adult Start:08-Jan-2020 Instruction Type:Provider Instructions for Treatment How to access health informa tion online Indication:Current smoker Start:25-Dec-2019 Instruction Type:Patient Education How to access health informa tion online - Detail Indication:Current smoker Start:25-Dec-2019 Instruction Type:Patient Education Patient Instructions Indication:Current smoker Start:25-Dec-2019 Instruction Type:Provider Instructions for Treatment How to access health informa tion online Indication:Current smoker Start:11-Dec-2019 Instruction Type:Patient Education How to access health informa tion online - Detail Indication:Current smoker Start:11-Dec-2019 Instruction Type:Patient Education Patient Instructions Indication:Current smoker Start:11-Dec-2019 Instruction Type:Provider Instructions for Treatment How to access health informa tion online Indication:BMI less than 19,adult Start:30-Oct-2019 Instruction Type:Patient Education How to access health informa tion online - Detail Indication:BMI less than 19,adult Start:30-Oct-2019 Instruction Type:Patient Education Patient Instructions Indication:BMI less than 19,adult Start:30-Oct-2019 Instruction Type:Provider Instructions for Treatment How to access health informa tion online Indication:Current smoker Start:09-Oct-2019 Instruction Type:Patient Education How to access health informa tion online - Detail Indication:Current smoker Start:09-Oct-2019 Instruction Type:Patient Education Patient Instructions Indication:Current smoker Start:09-Oct-2019 Instruction Type:Provider Instructions for Treatment How to access health informa tion online Indication:Current smoker Start:07-Aug-2019 Instruction Type:Patient Education How to access health informa tion online - Detail Indication:Current smoker Start:07-Aug-2019 Instruction Type:Patient Education Patient Instructions Indication:Current smoker Start:07-Aug-2019 Instruction Type:Provider Instructions for Treatment How to access health informa tion online Indication:Current smoker Start:22-May-2019 Instruction Type:Patient Education How to access health informa tion online - Detail Indication:Current smoker Start:22-May-2019 Instruction Type:Patient Education Patient Instructions Indication:Body mass index (BMI) of 19.0-19.9 in adult Start:22-May-2019 Instruction Type:Provider Instructions for Treatment How to access health informa tion online Indication:Current smoker Start:08-May-2019 Instruction Type:Patient Education How to access health informa tion online - Detail Indication:Current smoker Start:08-May-2019 Instruction Type:Patient Education Patient Instructions Indication:Current smoker Start:08-May-2019 Instruction Type:Provider Instructions for Treatment How to access health informa tion online Indication:Current smoker Start:05-Feb-2019 Instruction Type:Patient Education How to access health informa tion online - Detail Indication:Current smoker Start:05-Feb-2019 Instruction Type:Patient Education Patient Instructions Indication:Hypothyroid Start:05-Feb-2019 Instruction Type:Provider Instructions for Treatment How to access health informa tion online Indication:Current smoker Start:07-Jan-2019 Instruction Type:Patient Education How to access health informa tion online - Detail Indication:Current smoker Start:07-Jan-2019 Instruction Type:Patient Education Patient Instructions Indication:Current smoker Start:07-Jan-2019 Instruction Type:Provider Instructions for Treatment How to access health informa tion online Indication:Current smoker Start:22-Aug-2018 Instruction Type:Patient Education How to access health informa tion online - Detail Indication:Current smoker Start:22-Aug-2018 Instruction Type:Patient Education Patient Instructions Indication:Current smoker Start:22-Aug-2018 Instruction Type:Provider Instructions for Treatment How to access health informa tion online Indication:Current smoker Start:14-Aug-2018 Instruction Type:Patient Education How to access health informa tion online - Detail Indication:Current smoker Start:14-Aug-2018 Instruction Type:Patient Education Patient Instructions Indication:Current smoker Start:14-Aug-2018 Instruction Type:Provider Instructions for Treatment How to access health informa tion online Indication:Current smoker Start:11-Jul-2018 Instruction Type:Patient Education How to access health informa tion online - Detail Indication:Current smoker Start:11-Jul-2018 Instruction Type:Patient Education Patient Instructions Indication:BMI 20.0-20.9, adult Start:11-Jul-2018 Instruction Type:Provider Instructions for Treatment How to access health informa tion online Indication:Current smoker Start:09-Jul-2018 Instruction Type:Patient Education How to access health informa tion online - Detail Indication:Current smoker Start:09-Jul-2018 Instruction Type:Patient Education Patient Instructions Indication:Current smoker Start:09-Jul-2018 Instruction Type:Provider Instructions for Treatment How to access health informa tion online Indication:Current smoker Start:27-Feb-2018 Instruction Type:Patient Education How to access health informa tion online - Detail Indication:Current smoker Start:27-Feb-2018 Instruction Type:Patient Education Patient Instructions Indication:Current smoker Start:27-Feb-2018 Instruction Type:Provider Instructions for Treatment How to access health informa tion online Indication:Current smoker Start:05-Feb-2018 Instruction Type:Patient Education How to access health informa tion online - Detail Indication:Current smoker Start:05-Feb-2018 Instruction Type:Patient Education Patient Instructions Indication:Current smoker Start:05-Feb-2018 Instruction Type:Provider Instructions for Treatment How to access health informa tion online Indication:Current smoker Start:30-Jan-2018 Instruction Type:Patient Education How to access health informa tion online - Detail Indication:Current smoker Start:30-Jan-2018 Instruction Type:Patient Education Patient Instructions Indication:BMI 20.0-20.9, adult Start:30-Jan-2018 Instruction Type:Provider Instructions for Treatment How to access health informa tion online Indication:Hypothyroid Start:11-Jan-2018 Instruction Type:Patient Education How to access health informa tion online - Detail Indication:Hypothyroid Start:11-Jan-2018 Instruction Type:Patient Education Patient Instructions Indication:Hypothyroid Start:11-Jan-2018 Instruction Type:Provider Instructions for Treatment Name Dates Details How to access health informa tion online Indication:Current smoker Start:08-May-2019 Instruction Type:Patient Education How to access health informa tion online - Detail Indication:Current smoker Start:08-May-2019 Instruction Type:Patient Education Patient Instructions Indication:Current smoker Start:08-May-2019 Instruction Type:Provider Instructions for Treatment How to access health informa tion online Indication:Current smoker Start:05-Feb-2019 Instruction Type:Patient Education How to access health informa tion online - Detail Indication:Current smoker Start:05-Feb-2019 Instruction Type:Patient Education Patient Instructions Indication:Hypothyroid Start:05-Feb-2019 Instruction Type:Provider Instructions for Treatment How to access health informa tion online Indication:Current smoker Start:07-Jan-2019 Instruction Type:Patient Education How to access health informa tion online - Detail Indication:Current smoker Start:07-Jan-2019 Instruction Type:Patient Education Patient Instructions Indication:Current smoker Start:07-Jan-2019 Instruction Type:Provider Instructions for Treatment How to access health informa tion online Indication:Current smoker Start:22-Aug-2018 Instruction Type:Patient Education How to access health informa tion online - Detail Indication:Current smoker Start:22-Aug-2018 Instruction Type:Patient Education Patient Instructions Indication:Current smoker Start:22-Aug-2018 Instruction Type:Provider Instructions for Treatment How to access health informa tion online Indication:Current smoker Start:14-Aug-2018 Instruction Type:Patient Education How to access health informa tion online - Detail Indication:Current smoker Start:14-Aug-2018 Instruction Type:Patient Education Patient Instructions Indication:Current smoker Start:14-Aug-2018 Instruction Type:Provider Instructions for Treatment How to access health informa tion online Indication:Current smoker Start:11-Jul-2018 Instruction Type:Patient Education How to access health informa tion online - Detail Indication:Current smoker Start:11-Jul-2018 Instruction Type:Patient Education Patient Instructions Indication:BMI 20.0-20.9, adult Start:11-Jul-2018 Instruction Type:Provider Instructions for Treatment How to access health informa tion online Indication:Current smoker Start:09-Jul-2018 Instruction Type:Patient Education How to access health informa tion online - Detail Indication:Current smoker Start:09-Jul-2018 Instruction Type:Patient Education Patient Instructions Indication:Current smoker Start:09-Jul-2018 Instruction Type:Provider Instructions for Treatment How to access health informa tion online Indication:Current smoker Start:27-Feb-2018 Instruction Type:Patient Education How to access health informa tion online - Detail Indication:Current smoker Start:27-Feb-2018 Instruction Type:Patient Education Patient Instructions Indication:Current smoker Start:27-Feb-2018 Instruction Type:Provider Instructions for Treatment How to access health informa tion online Indication:Current smoker Start:05-Feb-2018 Instruction Type:Patient Education How to access health informa tion online - Detail Indication:Current smoker Start:05-Feb-2018 Instruction Type:Patient Education Patient Instructions Indication:Current smoker Start:05-Feb-2018 Instruction Type:Provider Instructions for Treatment How to access health informa tion online Indication:Current smoker Start:30-Jan-2018 Instruction Type:Patient Education How to access health informa tion online - Detail Indication:Current smoker Start:30-Jan-2018 Instruction Type:Patient Education Patient Instructions Indication:BMI 20.0-20.9, adult Start:30-Jan-2018 Instruction Type:Provider Instructions for Treatment How to access health informa tion online Indication:Hypothyroid Start:11-Jan-2018 Instruction Type:Patient Education How to access health informa tion online - Detail Indication:Hypothyroid Start:11-Jan-2018 Instruction Type:Patient Education Patient Instructions Indication:Hypothyroid Start:11-Jan-2018 Instruction Type:Provider Instructions for Treatment Name Dates Details How to access health informa tion online Indication:Current smoker Start:08-May-2019 Instruction Type:Patient Education How to access health informa tion online - Detail Indication:Current smoker Start:08-May-2019 Instruction Type:Patient Education Patient Instructions Indication:Current smoker Start:08-May-2019 Instruction Type:Provider Instructions for Treatment How to access health informa tion online Indication:Current smoker Start:05-Feb-2019 Instruction Type:Patient Education How to access health informa tion online - Detail Indication:Current smoker Start:05-Feb-2019 Instruction Type:Patient Education Patient Instructions Indication:Hypothyroid Start:05-Feb-2019 Instruction Type:Provider Instructions for Treatment How to access health informa tion online Indication:Current smoker Start:07-Jan-2019 Instruction Type:Patient Education How to access health informa tion online - Detail Indication:Current smoker Start:07-Jan-2019 Instruction Type:Patient Education Patient Instructions Indication:Current smoker Start:07-Jan-2019 Instruction Type:Provider Instructions for Treatment How to access health informa tion online Indication:Current smoker Start:22-Aug-2018 Instruction Type:Patient Education How to access health informa tion online - Detail Indication:Current smoker Start:22-Aug-2018 Instruction Type:Patient Education Patient Instructions Indication:Current smoker Start:22-Aug-2018 Instruction Type:Provider Instructions for Treatment How to access health informa tion online Indication:Current smoker Start:14-Aug-2018 Instruction Type:Patient Education How to access health informa tion online - Detail Indication:Current smoker Start:14-Aug-2018 Instruction Type:Patient Education Patient Instructions Indication:Current smoker Start:14-Aug-2018 Instruction Type:Provider Instructions for Treatment How to access health informa tion online Indication:Current smoker Start:11-Jul-2018 Instruction Type:Patient Education How to access health informa tion online - Detail Indication:Current smoker Start:11-Jul-2018 Instruction Type:Patient Education Patient Instructions Indication:BMI 20.0-20.9, adult Start:11-Jul-2018 Instruction Type:Provider Instructions for Treatment How to access health informa tion online Indication:Current smoker Start:09-Jul-2018 Instruction Type:Patient Education How to access health informa tion online - Detail Indication:Current smoker Start:09-Jul-2018 Instruction Type:Patient Education Patient Instructions Indication:Current smoker Start:09-Jul-2018 Instruction Type:Provider Instructions for Treatment How to access health informa tion online Indication:Current smoker Start:27-Feb-2018 Instruction Type:Patient Education How to access health informa tion online - Detail Indication:Current smoker Start:27-Feb-2018 Instruction Type:Patient Education Patient Instructions Indication:Current smoker Start:27-Feb-2018 Instruction Type:Provider Instructions for Treatment How to access health informa tion online Indication:Current smoker Start:05-Feb-2018 Instruction Type:Patient Education How to access health informa tion online - Detail Indication:Current smoker Start:05-Feb-2018 Instruction Type:Patient Education Patient Instructions Indication:Current smoker Start:05-Feb-2018 Instruction Type:Provider Instructions for Treatment How to access health informa tion online Indication:Current smoker Start:30-Jan-2018 Instruction Type:Patient Education How to access health informa tion online - Detail Indication:Current smoker Start:30-Jan-2018 Instruction Type:Patient Education Patient Instructions Indication:BMI 20.0-20.9, adult Start:30-Jan-2018 Instruction Type:Provider Instructions for Treatment How to access health informa tion online Indication:Hypothyroid Start:11-Jan-2018 Instruction Type:Patient Education How to access health informa tion online - Detail Indication:Hypothyroid Start:11-Jan-2018 Instruction Type:Patient Education Patient Instructions Indication:Hypothyroid Start:11-Jan-2018 Instruction Type:Provider Instructions for Treatment Name Dates Details How to access health informa tion online Indication:Current smoker Start:07-Jan-2019 Instruction Type:Patient Education How to access health informa tion online - Detail Indication:Current smoker Start:07-Jan-2019 Instruction Type:Patient Education Patient Instructions Indication:Current smoker Start:07-Jan-2019 Instruction Type:Provider Instructions for Treatment How to access health informa tion online Indication:Current smoker Start:22-Aug-2018 Instruction Type:Patient Education How to access health informa tion online - Detail Indication:Current smoker Start:22-Aug-2018 Instruction Type:Patient Education Patient Instructions Indication:Current smoker Start:22-Aug-2018 Instruction Type:Provider Instructions for Treatment How to access health informa tion online Indication:Current smoker Start:14-Aug-2018 Instruction Type:Patient Education How to access health informa tion online - Detail Indication:Current smoker Start:14-Aug-2018 Instruction Type:Patient Education Patient Instructions Indication:Current smoker Start:14-Aug-2018 Instruction Type:Provider Instructions for Treatment How to access health informa tion online Indication:Current smoker Start:11-Jul-2018 Instruction Type:Patient Education How to access health informa tion online - Detail Indication:Current smoker Start:11-Jul-2018 Instruction Type:Patient Education Patient Instructions Indication:BMI 20.0-20.9, adult Start:11-Jul-2018 Instruction Type:Provider Instructions for Treatment How to access health informa tion online Indication:Current smoker Start:09-Jul-2018 Instruction Type:Patient Education How to access health informa tion online - Detail Indication:Current smoker Start:09-Jul-2018 Instruction Type:Patient Education Patient Instructions Indication:Current smoker Start:09-Jul-2018 Instruction Type:Provider Instructions for Treatment How to access health informa tion online Indication:Current smoker Start:27-Feb-2018 Instruction Type:Patient Education How to access health informa tion online - Detail Indication:Current smoker Start:27-Feb-2018 Instruction Type:Patient Education Patient Instructions Indication:Current smoker Start:27-Feb-2018 Instruction Type:Provider Instructions for Treatment How to access health informa tion online Indication:Current smoker Start:05-Feb-2018 Instruction Type:Patient Education How to access health informa tion online - Detail Indication:Current smoker Start:05-Feb-2018 Instruction Type:Patient Education Patient Instructions Indication:Current smoker Start:05-Feb-2018 Instruction Type:Provider Instructions for Treatment How to access health informa tion online Indication:Current smoker Start:30-Jan-2018 Instruction Type:Patient Education How to access health informa tion online - Detail Indication:Current smoker Start:30-Jan-2018 Instruction Type:Patient Education Patient Instructions Indication:BMI 20.0-20.9, adult Start:30-Jan-2018 Instruction Type:Provider Instructions for Treatment How to access health informa tion online Indication:Hypothyroid Start:11-Jan-2018 Instruction Type:Patient Education How to access health informa tion online - Detail Indication:Hypothyroid Start:11-Jan-2018 Instruction Type:Patient Education Patient Instructions Indication:Hypothyroid Start:11-Jan-2018 Instruction Type:Provider Instructions for Treatment Name Dates Details How to access health informa tion online Indication:Current smoker Start:24-Mar-2020 Instruction Type:Patient Education How to access health informa tion online - Detail Indication:Current smoker Start:24-Mar-2020 Instruction Type:Patient Education Patient Instructions Indication:Current smoker Start:24-Mar-2020 Instruction Type:Provider Instructions for Treatment How to access health informa tion online Indication:BMI less than 19,adult Start:08-Jan-2020 Instruction Type:Patient Education How to access health informa tion online - Detail Indication:BMI less than 19,adult Start:08-Jan-2020 Instruction Type:Patient Education Patient Instructions Indication:BMI less than 19,adult Start:08-Jan-2020 Instruction Type:Provider Instructions for Treatment How to access health informa tion online Indication:Current smoker Start:25-Dec-2019 Instruction Type:Patient Education How to access health informa tion online - Detail Indication:Current smoker Start:25-Dec-2019 Instruction Type:Patient Education Patient Instructions Indication:Current smoker Start:25-Dec-2019 Instruction Type:Provider Instructions for Treatment How to access health informa tion online Indication:Current smoker Start:11-Dec-2019 Instruction Type:Patient Education How to access health informa tion online - Detail Indication:Current smoker Start:11-Dec-2019 Instruction Type:Patient Education Patient Instructions Indication:Current smoker Start:11-Dec-2019 Instruction Type:Provider Instructions for Treatment How to access health informa tion online Indication:BMI less than 19,adult Start:30-Oct-2019 Instruction Type:Patient Education How to access health informa tion online - Detail Indication:BMI less than 19,adult Start:30-Oct-2019 Instruction Type:Patient Education Patient Instructions Indication:BMI less than 19,adult Start:30-Oct-2019 Instruction Type:Provider Instructions for Treatment How to access health informa tion online Indication:Current smoker Start:09-Oct-2019 Instruction Type:Patient Education How to access health informa tion online - Detail Indication:Current smoker Start:09-Oct-2019 Instruction Type:Patient Education Patient Instructions Indication:Current smoker Start:09-Oct-2019 Instruction Type:Provider Instructions for Treatment How to access health informa tion online Indication:Current smoker Start:07-Aug-2019 Instruction Type:Patient Education How to access health informa tion online - Detail Indication:Current smoker Start:07-Aug-2019 Instruction Type:Patient Education Patient Instructions Indication:Current smoker Start:07-Aug-2019 Instruction Type:Provider Instructions for Treatment How to access health informa tion online Indication:Current smoker Start:22-May-2019 Instruction Type:Patient Education How to access health informa tion online - Detail Indication:Current smoker Start:22-May-2019 Instruction Type:Patient Education Patient Instructions Indication:Body mass index (BMI) of 19.0-19.9 in adult Start:22-May-2019 Instruction Type:Provider Instructions for Treatment How to access health informa tion online Indication:Current smoker Start:08-May-2019 Instruction Type:Patient Education How to access health informa tion online - Detail Indication:Current smoker Start:08-May-2019 Instruction Type:Patient Education Patient Instructions Indication:Current smoker Start:08-May-2019 Instruction Type:Provider Instructions for Treatment How to access health informa tion online Indication:Current smoker Start:05-Feb-2019 Instruction Type:Patient Education How to access health informa tion online - Detail Indication:Current smoker Start:05-Feb-2019 Instruction Type:Patient Education Patient Instructions Indication:Hypothyroid Start:05-Feb-2019 Instruction Type:Provider Instructions for Treatment How to access health informa tion online Indication:Current smoker Start:07-Jan-2019 Instruction Type:Patient Education How to access health informa tion online - Detail Indication:Current smoker Start:07-Jan-2019 Instruction Type:Patient Education Patient Instructions Indication:Current smoker Start:07-Jan-2019 Instruction Type:Provider Instructions for Treatment How to access health informa tion online Indication:Current smoker Start:22-Aug-2018 Instruction Type:Patient Education How to access health informa tion online - Detail Indication:Current smoker Start:22-Aug-2018 Instruction Type:Patient Education Patient Instructions Indication:Current smoker Start:22-Aug-2018 Instruction Type:Provider Instructions for Treatment How to access health informa tion online Indication:Current smoker Start:14-Aug-2018 Instruction Type:Patient Education How to access health informa tion online - Detail Indication:Current smoker Start:14-Aug-2018 Instruction Type:Patient Education Patient Instructions Indication:Current smoker Start:14-Aug-2018 Instruction Type:Provider Instructions for Treatment How to access health informa tion online Indication:Current smoker Start:11-Jul-2018 Instruction Type:Patient Education How to access health informa tion online - Detail Indication:Current smoker Start:11-Jul-2018 Instruction Type:Patient Education Patient Instructions Indication:BMI 20.0-20.9, adult Start:11-Jul-2018 Instruction Type:Provider Instructions for Treatment How to access health informa tion online Indication:Current smoker Start:09-Jul-2018 Instruction Type:Patient Education How to access health informa tion online - Detail Indication:Current smoker Start:09-Jul-2018 Instruction Type:Patient Education Patient Instructions Indication:Current smoker Start:09-Jul-2018 Instruction Type:Provider Instructions for Treatment How to access health informa tion online Indication:Current smoker Start:27-Feb-2018 Instruction Type:Patient Education How to access health informa tion online - Detail Indication:Current smoker Start:27-Feb-2018 Instruction Type:Patient Education Patient Instructions Indication:Current smoker Start:27-Feb-2018 Instruction Type:Provider Instructions for Treatment How to access health informa tion online Indication:Current smoker Start:05-Feb-2018 Instruction Type:Patient Education How to access health informa tion online - Detail Indication:Current smoker Start:05-Feb-2018 Instruction Type:Patient Education Patient Instructions Indication:Current smoker Start:05-Feb-2018 Instruction Type:Provider Instructions for Treatment How to access health informa tion online Indication:Current smoker Start:30-Jan-2018 Instruction Type:Patient Education How to access health informa tion online - Detail Indication:Current smoker Start:30-Jan-2018 Instruction Type:Patient Education Patient Instructions Indication:BMI 20.0-20.9, adult Start:30-Jan-2018 Instruction Type:Provider Instructions for Treatment How to access health informa tion online Indication:Hypothyroid Start:11-Jan-2018 Instruction Type:Patient Education How to access health informa tion online - Detail Indication:Hypothyroid Start:11-Jan-2018 Instruction Type:Patient Education Patient Instructions Indication:Hypothyroid Start:11-Jan-2018 Instruction Type:Provider Instructions for Treatment Name Dates Details How to access health informa tion online Indication:Current smoker Start:05-Feb-2019 Instruction Type:Patient Education How to access health informa tion online - Detail Indication:Current smoker Start:05-Feb-2019 Instruction Type:Patient Education Patient Instructions Indication:Hypothyroid Start:05-Feb-2019 Instruction Type:Provider Instructions for Treatment How to access health informa tion online Indication:Current smoker Start:07-Jan-2019 Instruction Type:Patient Education How to access health informa tion online - Detail Indication:Current smoker Start:07-Jan-2019 Instruction Type:Patient Education Patient Instructions Indication:Current smoker Start:07-Jan-2019 Instruction Type:Provider Instructions for Treatment How to access health informa tion online Indication:Current smoker Start:22-Aug-2018 Instruction Type:Patient Education How to access health informa tion online - Detail Indication:Current smoker Start:22-Aug-2018 Instruction Type:Patient Education Patient Instructions Indication:Current smoker Start:22-Aug-2018 Instruction Type:Provider Instructions for Treatment How to access health informa tion online Indication:Current smoker Start:14-Aug-2018 Instruction Type:Patient Education How to access health informa tion online - Detail Indication:Current smoker Start:14-Aug-2018 Instruction Type:Patient Education Patient Instructions Indication:Current smoker Start:14-Aug-2018 Instruction Type:Provider Instructions for Treatment How to access health informa tion online Indication:Current smoker Start:11-Jul-2018 Instruction Type:Patient Education How to access health informa tion online - Detail Indication:Current smoker Start:11-Jul-2018 Instruction Type:Patient Education Patient Instructions Indication:BMI 20.0-20.9, adult Start:11-Jul-2018 Instruction Type:Provider Instructions for Treatment How to access health informa tion online Indication:Current smoker Start:09-Jul-2018 Instruction Type:Patient Education How to access health informa tion online - Detail Indication:Current smoker Start:09-Jul-2018 Instruction Type:Patient Education Patient Instructions Indication:Current smoker Start:09-Jul-2018 Instruction Type:Provider Instructions for Treatment How to access health informa tion online Indication:Current smoker Start:27-Feb-2018 Instruction Type:Patient Education How to access health informa tion online - Detail Indication:Current smoker Start:27-Feb-2018 Instruction Type:Patient Education Patient Instructions Indication:Current smoker Start:27-Feb-2018 Instruction Type:Provider Instructions for Treatment How to access health informa tion online Indication:Current smoker Start:05-Feb-2018 Instruction Type:Patient Education How to access health informa tion online - Detail Indication:Current smoker Start:05-Feb-2018 Instruction Type:Patient Education Patient Instructions Indication:Current smoker Start:05-Feb-2018 Instruction Type:Provider Instructions for Treatment How to access health informa tion online Indication:Current smoker Start:30-Jan-2018 Instruction Type:Patient Education How to access health informa tion online - Detail Indication:Current smoker Start:30-Jan-2018 Instruction Type:Patient Education Patient Instructions Indication:BMI 20.0-20.9, adult Start:30-Jan-2018 Instruction Type:Provider Instructions for Treatment How to access health informa tion online Indication:Hypothyroid Start:11-Jan-2018 Instruction Type:Patient Education How to access health informa tion online - Detail Indication:Hypothyroid Start:11-Jan-2018 Instruction Type:Patient Education Patient Instructions Indication:Hypothyroid Start:11-Jan-2018 Instruction Type:Provider Instructions for Treatment Name Dates Details Patient Instructions Indication:Current smoker Start:04-Sep-2020 Instruction Type:Provider Instructions for Treatment How to Access Health Informa tion Online using Patient Portal and [employer] Apps Indication:Current smoker Start:04-Sep-2020 Instruction Type:Patient Education How to access health informa tion online Indication:Current smoker Start:24-Mar-2020 Instruction Type:Patient Education How to access health informa tion online - Detail Indication:Current smoker Start:24-Mar-2020 Instruction Type:Patient Education Patient Instructions Indication:Current smoker Start:24-Mar-2020 Instruction Type:Provider Instructions for Treatment How to access health informa tion online Indication:BMI less than 19,adult Start:08-Jan-2020 Instruction Type:Patient Education How to access health informa tion online - Detail Indication:BMI less than 19,adult Start:08-Jan-2020 Instruction Type:Patient Education Patient Instructions Indication:BMI less than 19,adult Start:08-Jan-2020 Instruction Type:Provider Instructions for Treatment How to access health informa tion online Indication:Current smoker Start:25-Dec-2019 Instruction Type:Patient Education How to access health informa tion online - Detail Indication:Current smoker Start:25-Dec-2019 Instruction Type:Patient Education Patient Instructions Indication:Current smoker Start:25-Dec-2019 Instruction Type:Provider Instructions for Treatment How to access health informa tion online Indication:Current smoker Start:11-Dec-2019 Instruction Type:Patient Education How to access health informa tion online - Detail Indication:Current smoker Start:11-Dec-2019 Instruction Type:Patient Education Patient Instructions Indication:Current smoker Start:11-Dec-2019 Instruction Type:Provider Instructions for Treatment How to access health informa tion online Indication:BMI less than 19,adult Start:30-Oct-2019 Instruction Type:Patient Education How to access health informa tion online - Detail Indication:BMI less than 19,adult Start:30-Oct-2019 Instruction Type:Patient Education Patient Instructions Indication:BMI less than 19,adult Start:30-Oct-2019 Instruction Type:Provider Instructions for Treatment How to access health informa tion online Indication:Current smoker Start:09-Oct-2019 Instruction Type:Patient Education How to access health informa tion online - Detail Indication:Current smoker Start:09-Oct-2019 Instruction Type:Patient Education Patient Instructions Indication:Current smoker Start:09-Oct-2019 Instruction Type:Provider Instructions for Treatment How to access health informa tion online Indication:Current smoker Start:07-Aug-2019 Instruction Type:Patient Education How to access health informa tion online - Detail Indication:Current smoker Start:07-Aug-2019 Instruction Type:Patient Education Patient Instructions Indication:Current smoker Start:07-Aug-2019 Instruction Type:Provider Instructions for Treatment How to access health informa tion online Indication:Current smoker Start:22-May-2019 Instruction Type:Patient Education How to access health informa tion online - Detail Indication:Current smoker Start:22-May-2019 Instruction Type:Patient Education Patient Instructions Indication:Body mass index (BMI) of 19.0-19.9 in adult Start:22-May-2019 Instruction Type:Provider Instructions for Treatment How to access health informa tion online Indication:Current smoker Start:08-May-2019 Instruction Type:Patient Education How to access health informa tion online - Detail Indication:Current smoker Start:08-May-2019 Instruction Type:Patient Education Patient Instructions Indication:Current smoker Start:08-May-2019 Instruction Type:Provider Instructions for Treatment How to access health informa tion online Indication:Current smoker Start:05-Feb-2019 Instruction Type:Patient Education How to access health informa tion online - Detail Indication:Current smoker Start:05-Feb-2019 Instruction Type:Patient Education Patient Instructions Indication:Hypothyroid Start:05-Feb-2019 Instruction Type:Provider Instructions for Treatment How to access health informa tion online Indication:Current smoker Start:07-Jan-2019 Instruction Type:Patient Education How to access health informa tion online - Detail Indication:Current smoker Start:07-Jan-2019 Instruction Type:Patient Education Patient Instructions Indication:Current smoker Start:07-Jan-2019 Instruction Type:Provider Instructions for Treatment How to access health informa tion online Indication:Current smoker Start:22-Aug-2018 Instruction Type:Patient Education How to access health informa tion online - Detail Indication:Current smoker Start:22-Aug-2018 Instruction Type:Patient Education Patient Instructions Indication:Current smoker Start:22-Aug-2018 Instruction Type:Provider Instructions for Treatment How to access health informa tion online Indication:Current smoker Start:14-Aug-2018 Instruction Type:Patient Education How to access health informa tion online - Detail Indication:Current smoker Start:14-Aug-2018 Instruction Type:Patient Education Patient Instructions Indication:Current smoker Start:14-Aug-2018 Instruction Type:Provider Instructions for Treatment How to access health informa tion online Indication:Current smoker Start:11-Jul-2018 Instruction Type:Patient Education How to access health informa tion online - Detail Indication:Current smoker Start:11-Jul-2018 Instruction Type:Patient Education Patient Instructions Indication:BMI 20.0-20.9, adult Start:11-Jul-2018 Instruction Type:Provider Instructions for Treatment How to access health informa tion online Indication:Current smoker Start:09-Jul-2018 Instruction Type:Patient Education How to access health informa tion online - Detail Indication:Current smoker Start:09-Jul-2018 Instruction Type:Patient Education Patient Instructions Indication:Current smoker Start:09-Jul-2018 Instruction Type:Provider Instructions for Treatment How to access health informa tion online Indication:Current smoker Start:27-Feb-2018 Instruction Type:Patient Education How to access health informa tion online - Detail Indication:Current smoker Start:27-Feb-2018 Instruction Type:Patient Education Patient Instructions Indication:Current smoker Start:27-Feb-2018 Instruction Type:Provider Instructions for Treatment How to access health informa tion online Indication:Current smoker Start:05-Feb-2018 Instruction Type:Patient Education How to access health informa tion online - Detail Indication:Current smoker Start:05-Feb-2018 Instruction Type:Patient Education Patient Instructions Indication:Current smoker Start:05-Feb-2018 Instruction Type:Provider Instructions for Treatment How to access health informa tion online Indication:Current smoker Start:30-Jan-2018 Instruction Type:Patient Education How to access health informa tion online - Detail Indication:Current smoker Start:30-Jan-2018 Instruction Type:Patient Education Patient Instructions Indication:BMI 20.0-20.9, adult Start:30-Jan-2018 Instruction Type:Provider Instructions for Treatment How to access health informa tion online Indication:Hypothyroid Start:11-Jan-2018 Instruction Type:Patient Education How to access health informa tion online - Detail Indication:Hypothyroid Start:11-Jan-2018 Instruction Type:Patient Education Patient Instructions Indication:Hypothyroid Start:11-Jan-2018 Instruction Type:Provider Instructions for Treatment Name Dates Details How to access health informa tion online Indication:Current smoker Start:08-May-2019 Instruction Type:Patient Education How to access health informa tion online - Detail Indication:Current smoker Start:08-May-2019 Instruction Type:Patient Education Patient Instructions Indication:Current smoker Start:08-May-2019 Instruction Type:Provider Instructions for Treatment How to access health informa tion online Indication:Current smoker Start:05-Feb-2019 Instruction Type:Patient Education How to access health informa tion online - Detail Indication:Current smoker Start:05-Feb-2019 Instruction Type:Patient Education Patient Instructions Indication:Hypothyroid Start:05-Feb-2019 Instruction Type:Provider Instructions for Treatment How to access health informa tion online Indication:Current smoker Start:07-Jan-2019 Instruction Type:Patient Education How to access health informa tion online - Detail Indication:Current smoker Start:07-Jan-2019 Instruction Type:Patient Education Patient Instructions Indication:Current smoker Start:07-Jan-2019 Instruction Type:Provider Instructions for Treatment How to access health informa tion online Indication:Current smoker Start:22-Aug-2018 Instruction Type:Patient Education How to access health informa tion online - Detail Indication:Current smoker Start:22-Aug-2018 Instruction Type:Patient Education Patient Instructions Indication:Current smoker Start:22-Aug-2018 Instruction Type:Provider Instructions for Treatment How to access health informa tion online Indication:Current smoker Start:14-Aug-2018 Instruction Type:Patient Education How to access health informa tion online - Detail Indication:Current smoker Start:14-Aug-2018 Instruction Type:Patient Education Patient Instructions Indication:Current smoker Start:14-Aug-2018 Instruction Type:Provider Instructions for Treatment How to access health informa tion online Indication:Current smoker Start:11-Jul-2018 Instruction Type:Patient Education How to access health informa tion online - Detail Indication:Current smoker Start:11-Jul-2018 Instruction Type:Patient Education Patient Instructions Indication:BMI 20.0-20.9, adult Start:11-Jul-2018 Instruction Type:Provider Instructions for Treatment How to access health informa tion online Indication:Current smoker Start:09-Jul-2018 Instruction Type:Patient Education How to access health informa tion online - Detail Indication:Current smoker Start:09-Jul-2018 Instruction Type:Patient Education Patient Instructions Indication:Current smoker Start:09-Jul-2018 Instruction Type:Provider Instructions for Treatment How to access health informa tion online Indication:Current smoker Start:27-Feb-2018 Instruction Type:Patient Education How to access health informa tion online - Detail Indication:Current smoker Start:27-Feb-2018 Instruction Type:Patient Education Patient Instructions Indication:Current smoker Start:27-Feb-2018 Instruction Type:Provider Instructions for Treatment How to access health informa tion online Indication:Current smoker Start:05-Feb-2018 Instruction Type:Patient Education How to access health informa tion online - Detail Indication:Current smoker Start:05-Feb-2018 Instruction Type:Patient Education Patient Instructions Indication:Current smoker Start:05-Feb-2018 Instruction Type:Provider Instructions for Treatment How to access health informa tion online Indication:Current smoker Start:30-Jan-2018 Instruction Type:Patient Education How to access health informa tion online - Detail Indication:Current smoker Start:30-Jan-2018 Instruction Type:Patient Education Patient Instructions Indication:BMI 20.0-20.9, adult Start:30-Jan-2018 Instruction Type:Provider Instructions for Treatment How to access health informa tion online Indication:Hypothyroid Start:11-Jan-2018 Instruction Type:Patient Education How to access health informa tion online - Detail Indication:Hypothyroid Start:11-Jan-2018 Instruction Type:Patient Education Patient Instructions Indication:Hypothyroid Start:11-Jan-2018 Instruction Type:Provider Instructions for Treatment Name Dates Details How to access health informa tion online Indication:Current smoker Start:05-Feb-2019 Instruction Type:Patient Education How to access health informa tion online - Detail Indication:Current smoker Start:05-Feb-2019 Instruction Type:Patient Education Patient Instructions Indication:Hypothyroid Start:05-Feb-2019 Instruction Type:Provider Instructions for Treatment How to access health informa tion online Indication:Current smoker Start:07-Jan-2019 Instruction Type:Patient Education How to access health informa tion online - Detail Indication:Current smoker Start:07-Jan-2019 Instruction Type:Patient Education Patient Instructions Indication:Current smoker Start:07-Jan-2019 Instruction Type:Provider Instructions for Treatment How to access health informa tion online Indication:Current smoker Start:22-Aug-2018 Instruction Type:Patient Education How to access health informa tion online - Detail Indication:Current smoker Start:22-Aug-2018 Instruction Type:Patient Education Patient Instructions Indication:Current smoker Start:22-Aug-2018 Instruction Type:Provider Instructions for Treatment How to access health informa tion online Indication:Current smoker Start:14-Aug-2018 Instruction Type:Patient Education How to access health informa tion online - Detail Indication:Current smoker Start:14-Aug-2018 Instruction Type:Patient Education Patient Instructions Indication:Current smoker Start:14-Aug-2018 Instruction Type:Provider Instructions for Treatment How to access health informa tion online Indication:Current smoker Start:11-Jul-2018 Instruction Type:Patient Education How to access health informa tion online - Detail Indication:Current smoker Start:11-Jul-2018 Instruction Type:Patient Education Patient Instructions Indication:BMI 20.0-20.9, adult Start:11-Jul-2018 Instruction Type:Provider Instructions for Treatment How to access health informa tion online Indication:Current smoker Start:09-Jul-2018 Instruction Type:Patient Education How to access health informa tion online - Detail Indication:Current smoker Start:09-Jul-2018 Instruction Type:Patient Education Patient Instructions Indication:Current smoker Start:09-Jul-2018 Instruction Type:Provider Instructions for Treatment How to access health informa tion online Indication:Current smoker Start:27-Feb-2018 Instruction Type:Patient Education How to access health informa tion online - Detail Indication:Current smoker Start:27-Feb-2018 Instruction Type:Patient Education Patient Instructions Indication:Current smoker Start:27-Feb-2018 Instruction Type:Provider Instructions for Treatment How to access health informa tion online Indication:Current smoker Start:05-Feb-2018 Instruction Type:Patient Education How to access health informa tion online - Detail Indication:Current smoker Start:05-Feb-2018 Instruction Type:Patient Education Patient Instructions Indication:Current smoker Start:05-Feb-2018 Instruction Type:Provider Instructions for Treatment How to access health informa tion online Indication:Current smoker Start:30-Jan-2018 Instruction Type:Patient Education How to access health informa tion online - Detail Indication:Current smoker Start:30-Jan-2018 Instruction Type:Patient Education Patient Instructions Indication:BMI 20.0-20.9, adult Start:30-Jan-2018 Instruction Type:Provider Instructions for Treatment How to access health informa tion online Indication:Hypothyroid Start:11-Jan-2018 Instruction Type:Patient Education How to access health informa tion online - Detail Indication:Hypothyroid Start:11-Jan-2018 Instruction Type:Patient Education Patient Instructions Indication:Hypothyroid Start:11-Jan-2018 Instruction Type:Provider Instructions for Treatment Reason for Referral Specialty Diagnoses / Procedures Referred By Contac t Referred To Contact Radiology Diagnoses Cigarette nicotine dependence, uncomplicated Smoker Procedures CT LUNG SCREENING Eric Hawkins DO [address] [place] [address] Referral ID Status Reason Start Date Expiration Date Visits Re quested Visits Authorized [id number] Open 02/08/2022 02/08/2023 1 1 Additional Source Comments INFORMATION SOURCE (unrecogn ized section and content) DATE CREATED AUTHOR AUTHOR'S ORGANIZ ATION 07/16/2018 [facility] DATE CREATED AUTHOR AUTHOR'S ORGANIZ ATION 03/23/2022 [facility] DATE CREATED AUTHOR AUTHOR'S ORGANIZ ATION 05/12/2023 [facility] Care Teams (unrecognized sec tion and content) Anesthesia Tech Relationship Specialty Start Date End Date Eric Hawkins DO [address] [place] [address] PCP - General Family Medicine 02/02/22 Anesthesia Tech Relationship Specialty Start Date End Date Arash Dixon DO [address] [address] PCP - General Family Medicine 10/04/22 Reason for Visit (unrecogniz ed section and content) FOR RECORDS PERTAINING TO PATIENTS WHO ARE OR HAVE BEEN ENROLLED IN A CHEMICAL DEPENDENCY/SUBSTANCEABUSE PROGRAM, SOME INFORMATION MAY BE OMITTED. This clinical summary was aggregated from multiple sources. Caution should be exercised in using it in the provision of clinical care. This summary normalizes information from multiple sources, and as a consequence, information in this document may materially change the coding, format and clinical context of patient data. In addition, data may be omitted in some cases. CLINICAL DECISIONS SHOULD BE BASED ON THE PRIMARY CLINICAL RECORDS. [facility]. provides no warranty or guarantee of the accuracy or completeness of information in this document.
== END 2023-07-08 14:59 | disposition home or self-care (01) ==
PROVIDERS: Emergency Provider Emergency Medicine; PCP Family Medicine; Visit Provider Emergency Medicine
DX: M25.511 Pain in right shoulder (principal); M25.521 Pain in right elbow; Z90.710 Acquired absence of both cervix and uterus; Z90.49 Acquired absence of other specified parts of digestive tract; F17.210 Nicotine dependence, cigarettes, uncomplicated
CPT/HCPCS: 99282

== ENCOUNTER → 2023-10-14 | Outpatient (CLI) | payer MEDICARE, MEDICAID, SELFPAY ==
[2023-10-14 09:19] LABS: Hematocrit 40.8 % (37-47); Hemoglobin 12.8 g/dL (12.0-15.0); Mean Corp Hgb Conc 31.4 g/dL (32-36); Mean Corpuscular Hgb 32.4 pg (27.0-32.0); Mean Corpuscular Volume 103.3 fL (81-99); Mean Platelet Vol. 9.5 fl (6.2-12.0); Platelet Count 261 K/mm3 (150-450); RBC Distribution Width CV 12.5 % (11.6-14.6); RBC Distribution Width SD 47.5 fl (35.1-43.9); Red Blood Count 3.95 M/mm3 (4.2-5.4); White Blood Count 8.2 K/mm3 (4.4-11.0)
[2023-10-14 09:48] LABS: ALB/GLOB Ratio 1.2 RATIO (0.9-2.4); AST(SGOT) 14 U/L (15-37); Alanine Aminotransfer ALT/SGPT 18 U/L (13-56); Albumin, Serum 3.5 g/dL (3.2-5.0); Alkaline Phosphatase 65 U/L (45-117); Anion Gap 3 (5-15); BUN 15 mg/dL (7-18); Calcium,Total 9.2 mg/dL (8.5-10.1); Chloride 110 mmol/L (98-107); Cholesterol 255 mg/dL (200); Creatinine, Serum 0.75 mg/dL (0.55-1.02); EST Glomerular Filtration Rate 82 mL/min (>60); Est Glom Filt Rate - Afr Amer 99 mL/min (>60); Globulin 2.9 g/dL (2.2-4.2); Glucose 100 mg/dL (74-106); High Density Lipoprotein 85 mg/dL; Potassium 4.4 mmol/L (3.5-5.1); Protein, Total 6.4 g/dL (6.4-8.2); Sodium Level 140 mmol/L (136-145); T4 Free Direct 1.05 ng/dL (0.76-1.46); Thyroid Stim Hormone (TSH) 3.24 uIU/mL (0.358-3.74); Triglycerides 80 mg/dL; Very Low Density Lipoprotein 16 mg/dL (5-40)
== END | disposition home or self-care (01) ==
PROVIDERS: PCP Family Medicine; Referring Provider Family Medicine; Visit Provider Family Medicine
DX: E78.5 Hyperlipidemia, unspecified (principal); E03.9 Hypothyroidism, unspecified
CPT/HCPCS: 36415; 80053; 80061; 82306; 84439; 84443; 85027

== ENCOUNTER → 2024-01-17 | Outpatient (CLI) | payer MEDICARE, MEDICAID, SELFPAY ==
[2024-01-17 15:15] LABS: Absolute Lymphocyte Count 2.45 X10^3/uL (0.83-4.51); Basophil# 0.05 X10^3/uL; Basophil% 0.6 % (0-1); Eosinophil# 0.13 X10^3/uL; Eosinophils% 1.6 % (0-5); Hematocrit 45.1 % (37-47); Hemoglobin 14.4 g/dL (12.0-15.0); Lymphocyte # 2.45 X10^3/ul (0.83-4.51); Lymphocyte % 29.3 % (19-41); Mean Corp Hgb Conc 31.9 g/dL (32-36); Mean Corpuscular Hgb 32.6 pg (27.0-32.0); Mean Platelet Vol. 9.8 fl (6.2-12.0); Monocyte# 0.68 X10^3/uL; Monocyte% 8.1 % (0-10); NRBC Flagged by Analyzer 0 % (0-5); Neutrophil # 5.01 X10^3/uL (2.7-7.7); Neutrophil % 59.8 % (47-70); Platelet Count 297 K/mm3 (150-450); RBC Distribution Width CV 12.6 % (11.6-14.6); RBC Distribution Width SD 47.6 fl (35.1-43.9); Red Blood Count 4.42 M/mm3 (4.2-5.4); White Blood Count 8.4 K/mm3 (4.4-11.0)
[2024-01-17 15:35] LABS: hCG Titer Quant., Serum 1 mIU/mL (1-3)
[2024-01-17 15:38] LABS: ALB/GLOB Ratio 1.2 RATIO (0.9-2.4); AST(SGOT) 16 U/L (15-37); Alanine Aminotransfer ALT/SGPT 21 U/L (13-56); Albumin, Serum 3.9 g/dL (3.2-5.0); Alkaline Phosphatase 87 U/L (45-117); Anion Gap 6 (5-15); BUN 11 mg/dL (7-18); BUN/Creat Ratio 14.5 RATIO (10-20); CRP < 2.90 mg/L (0.0-3.0); Calcium,Total 9.5 mg/dL (8.5-10.1); Chloride 107 mmol/L (98-107); Creatinine, Serum 0.76 mg/dL (0.55-1.02); EST Glomerular Filtration Rate 80 mL/min (>60); Est Glom Filt Rate - Afr Amer 97 mL/min (>60); Globulin 3.3 g/dL (2.2-4.2); Glucose 89 mg/dL (74-106); Potassium 4.3 mmol/L (3.5-5.1); Protein, Total 7.2 g/dL (6.4-8.2); Sodium Level 138 mmol/L (136-145)
== END | disposition home or self-care (01) ==
LOC: MTLAB 11:31
PROVIDERS: PCP Family Medicine; Referring Provider Family Medicine; Visit Provider Family Medicine
DX: M54.9 Dorsalgia, unspecified (principal); R10.10 Upper abdominal pain, unspecified
CPT/HCPCS: 36415; 80053; 84702; 85025; 86140

== ENCOUNTER 2024-01-25 15:47 | Emergency (ER) | payer MEDICARE, MEDICAID, SELFPAY ==
[2024-01-25 15:47] VITALS: BP 143/80; PULSE 94; RESP 18; TEMP 37; O2SAT 96; BMI 23.2
--- NOTE | 2024-01-25 16:00 | CT_ITS ---
STUDY: CT ABDOMEN AND PELVIS WITH CONTRAST REASON FOR EXAM: Female, 68 years old. Distention, colicky pain, tamponade, change in bow RADIATION DOSAGE (If Supplied By Facility): CTDIvol = ( 8.62 ) mGy, DLP = ( 333.87 ) mGycm TECHNIQUE: Transaxial images were obtained from the dome of the diaphragm to the symphysis pubis without oral contrast. IV 100mL Isovue-300 was administered. Sagittal and coronal images were reconstructed. Individualized dose optimization techniques were used for this CT. COMPARISON: None. FINDINGS: The visualized lung bases are unremarkable. The visualized portions of the heart are within normal limits. Normal liver. There are surgical clips in the gallbladder fossa consistent with a prior cholecystectomy. Normal spleen. Normal pancreas. Normal bilateral adrenal glands. Normal right kidney. Normal left kidney. Evaluation of the GI tract is limited by absence of oral contrast. Cannot exclude stomach wall thickening. No dilated loops of bowel or evidence for obstruction. Cannot exclude segmental thickening of the iqbal of the small or large bowel. Cannot exclude enteritis or colitis. Moderate diffuse fecal retention. Appendix is not clearly seen. There is diffuse atherosclerotic calcification of the abdominal aorta, without a demonstrated aneurysm. Normal inferior vena cava. Normal retroperitoneum. Normal urinary bladder. There is absence of the uterus consistent with a prior hysterectomy. Normal abdominal wall. Normal osseous structures. CT/Abdomen/Pelvis W IV Cont ONLY IMPRESSION: No definite acute or significant abnormality seen. Electronically Signed: Jared Barrett MD at 17:28 EDT ,
[2024-01-25 16:26] LABS: Absolute Lymphocyte Count 2.89 X10^3/uL (0.83-4.51); Absolute Neutrophil Count 3.7 X10^3/uL (2.0-7.7); Basophil# 0.04 X10^3/uL; Basophil% 0.5 % (0-1); Eosinophil# 0.17 X10^3/uL; Eosinophils% 2.3 % (0-5); Hemoglobin 14.2 g/dL (12.0-15.0); Lymphocyte # 2.89 X10^3/ul (0.83-4.51); Lymphocyte % 38.6 % (19-41); Mean Corp Hgb Conc 32.3 g/dL (32-36); Mean Corpuscular Hgb 32.6 pg (27.0-32.0); Mean Corpuscular Volume 100.9 fL (81-99); Mean Platelet Vol. 9.3 fl (6.2-12.0); Monocyte% 9.4 % (0-10); NRBC Flagged by Analyzer 0 % (0-5); Neutrophil # 3.65 X10^3/uL (2.7-7.7); Neutrophil % 48.8 % (47-70); Platelet Count 272 K/mm3 (150-450); RBC Distribution Width CV 12.7 % (11.6-14.6); RBC Distribution Width SD 47.6 fl (35.1-43.9); Red Blood Count 4.36 M/mm3 (4.2-5.4); White Blood Count 7.5 K/mm3 (4.4-11.0)
[2024-01-25] MEDS: Morphine 4 MG/ML Syringe IV (16:26)
[2024-01-25] MEDS: Ondansetron 4 MG/2 ML Vial IV (16:26)
--- NOTE | 2024-01-25 16:37 | EX.ED.DYSGE1 ---
HPI History of Present Illness Chief Complaint: Abd Pain Detail of Chief Complaint: Abdominal colicky pain, distention, bloated Informant: patient and family Onset/Context/Timing Onset: Weeks (Greater than 1 week) Context: Sudden Onset Timing: Intermittent Quality: Pain started greater than a week ago. Got better and then past Monday de Location: Stomach Current Severity: Mild Maximum Severity: Moderate Worsened by: Nothing Relieved by: nothing Associated Symptoms Associated Symptoms: Nausea Narrative Narrative: Patient is a 68-year-old woman. She saw her primary physician Dr. Shoemaker. He is concerned that she has a hernia and was scheduled for CAT scan. Patient reports nausea, abdominal colicky pain, distention, bloated. She is status postcholecystectomy and hysterectomy. She denies prior history of bowel obstruction. She does report nausea. She did have constipation with hard stool. She took 2 doses of milk of magnesia. She had 6 loose stools. On Monday she had 2 more Milk of Mag and Had 6 Loose Stools on Monday. She Now Has Hard Stool Again and the Stool Is Small in Size. She Denies Dysuria, Frequency, Urgency or Hematuria. Patient Has Not Noted Any Blood or Mucus in Her Stool. She Denies Black or Maroon-Colored Stool. She Is Not on Anticoagulant. She Denies History of Diverticulosis or Diverticulitis. She Denies Fever or Chills. She Denies Back Pain. She Had an 8 Majestic Weight Gain in the past Month. Prior similar symptoms: No Recent Illness/Hospitalization: No PFSH PFSH Medical History Impingement of both shoulders Bilateral carpal tunnel syndrome Medial epicondylitis, right elbow Left shoulder pain Contact with and (suspected) exposure to other viral communicable diseases Emphysema with chronic bronchitis Thyroid disease Arthritis Home Medications ?Medication ?Instructions ?Recorded ?Last Taken ?Type levothyroxine 50 mcg capsule 50 mcg PO DAILY 10/09/22 Unknown History rosuvastatin 10 mg tablet 10 mg PO DAILY 10/09/22 Unknown History albuterol sulfate 90 mcg/actuation 2 puff inhalation Q6H PRN 11/02/22 Unknown Rx aerosol inhaler shortness of breath or wheezing #6.7 grams hydrocodone-acetaminophen 5-325mg 1 tab PO Q6H PRN PRN Pain 3 days 07/08/23 Unknown Rx 5mg-325mg #12 TABLETS Allergy/AdvReac Type Severity Reaction Status Date / Time No Known Allergies Allergy Verified 01/25/24 15:48 Family History Mother Cancer Father Cancer Surgical History Hx of cholecystectomy History of hysterectomy Social History household members: none Smoking Status: Current every day smoker tobacco type: cigarettes alcohol intake: never ROS ROS ED Constitutional Constitutional ED: Denies chills, fever(s), subjective, sweats or weight loss Eyes Eyes: Denies blurry vision, change in vision or diplopia ENT ENT ED: Denies ear pain, rhinorrhea or sore throat Cardiovascular Cardiovascular: Denies chest pain, palpitations or racing heartbeat Respiratory/Chest Respiratory/Chest: Denies cough, dyspnea or dyspnea on exertion Gastrointestinal Gastrointestinal: Reports abdominal pain, constipation and nausea; Denies diarrhea or vomiting Genitourinary Genitourinary ED: Denies dysuria, hematuria or urinary frequency Musculoskeletal Musculoskeletal: Denies arthralgias, back pain, myalgias or neck pain Integumentary Denies rash Neurologic Neurologic: Denies headache(s) or paresthesias Psychiatric Psychiatric: Denies anxiety, depression or suicidal ideation Endocrine Endocrinology: Denies cold intolerance, heat intolerance, polydipsia or polyphagia Hematologic/Lymphatic Hematologic/Lymphatic: Reports systems reviewed and no addt'l complaints, except as documented EXAM Physical Exam Const Vital Signs: 01/25/24 15:47 Temperature 98.6 F Temperature Source Temporal Pulse Rate 94 Respiratory Rate 18 Blood Pressure 143/80 H Blood Pressure Mean 101 Pulse Ox 96 Oxygen Delivery Method Room Air Positive well nourished and well developed Constitutional Narrative: Patient appears uncomfortable. General Appearance ED: well developed; Negative for cyanotic, diaphoretic, NAD or pallor HEENT Reports dry mucous membranes HEENT Narrative: Head is atraumatic normocephalic. Ears normal. Posterior pharynx is normal. Mouth ED: Yes dry mucous membranes Mouth: dry mucous membranes Eyes PERRL and EOMs intact bilaterally General Eye ED: Negative for pale conjunctiva or scleral icterus Neck no lymphadenopathy, supple and no JVD Chest Wall inspection of chest normal and palpation of chest normal Resp normal respiratory effort and clear to auscultation bilaterally Cardio regular rate, regular rhythm, S1 normal heart sound, S2 normal heart sound and no murmurs GI hepatosplenomegaly and no masses; Negative for normal to inspection, nondistended, normoactive bowel sounds, non-tender or non-distended Inspection: abdominal distention Auscultation: normoactive bowel sounds Palpation: tender LLQ and RLQ and guarding LLQ and RLQ; Negative for soft, mass or rebound tenderness present Back/Spine no CVA tenderness Back/Spine Narrative: There is no inguinal lymphadenopathy. Extremity normal to inspection General Extremety ED: Negative for edema or tenderness General Extremity: Negative for edema Neuro oriented x3 and CN's II-XII intact bilaterally Sensorium / Orientation: alert Psych mental status grossly normal Skin no rashes or lesions noted, no wounds and skin turgor normal General Skin Exam: Negative for jaundice or pallor MDM MDM MDM Narrative Medical decision making narrative: Differential diagnosis would include mechanical obstruction, small bowel obstruction due to volvulus versus neoplasm lesions, abdominal pain of unknown etiology, doubt internal hernia hernia. There is no evidence of umbilical, ventral or inguinal hernia. Workup included CAT scan, appropriate blood work. Lab Data Attestation: I reviewed the patient's lab results. Lab results narrative: CBC is remarkable for slightly increased indices otherwise unremarkable. Labs: Laboratory Results - last 24 hr 01/25/24 16:15 WBC 7.5 RBC 4.36 Hgb 14.2 Hct 44.0 MCV 100.9 H MCH 32.6 H MCHC 32.3 RDW Std Deviation 47.6 H RDW Coeff of Lizbeth 12.7 Plt Count 272 MPV 9.3 Immature Gran % (Auto) 0.400 Neut % (Auto) 48.8 Lymph % (Auto) 38.6 [place] % (Auto) 9.4 Eos % (Auto) 2.3 Baso % (Auto) 0.5 Absolute Neuts (auto) 3.7 Absolute Lymphs (auto) 2.89 Nucleated RBC % 0 Sodium 141 Potassium 4.3 Chloride 110 H Carbon Dioxide 26.0 Anion Gap 5 BUN 13 Creatinine 0.81 Estim Creat Clear Calc 47.08 Est GFR (MDRD) Af Amer 90 Est GFR (MDRD) Non-Af 74 BUN/Creatinine Ratio 16.0 Glucose 103 Calcium 8.8 Total Bilirubin 0.30 Direct Bilirubin 0.07 AST 17 ALT 22 Alkaline Phosphatase 79 Total Protein 6.9 Albumin 3.4 Globulin 3.5 Lipase 37 Radiography Diagnostic Testing: Clinical Impression(s) from Imaging Studies Abdomen/Pelvis CT 01/25/24 16:00 IMPRESSION: No definite acute or significant abnormality seen. Electronically Signed: Jared Barrett MD at 17:28 EDT , Treatment and Re-Evaluation :: Patient is informed of her CAT scan results. Patient was informed the cause of her pain is unknown. Reason that her abdomen is big is because she gained 8 pounds and there is significant mount of adipose tissue noted. Discharge Plan Triage Chief Complaint: Abd Pain ED Provider: Bernardino Hayes Dx/Rx/DC Orders Clinical Impression: Abdominal pain of unknown etiology, Fibromyalgia, Abdominal distension Instructions: ED Abdominal Pain Unkn Cause Fem Prescriptions: No Action levothyroxine 50 mcg capsule 50 mcg PO DAILY Patient Comments: take 1 capsule by mouth once daily rosuvastatin 10 mg tablet 10 mg PO DAILY Patient Comments: take 1 tablet by mouth nightly albuterol sulfate 90 mcg/actuation HFA aerosol inhaler 2 puff inhalation Q6H PRN (Reason: shortness of breath or wheezing) Qty: 6.7 0RF hydrocodone-acetaminophen [hydrocodone-acetaminophen] 5-325 mg tablet 1 tab PO Q6H PRN PRN (Reason: Pain) 3 Days Qty: 12 0RF Primary Care Provider: Dillon Shoemaker Referrals: Dillon Shoemaker MD [Primary Care Provider] - 10-14 Days if not better Print Language: Scottish Disposition Disposition: Home, Self Care
[2024-01-25 16:53] LABS: AST(SGOT) 17 U/L (15-37); Alanine Aminotransfer ALT/SGPT 22 U/L (13-56); Albumin, Serum 3.4 g/dL (3.2-5.0); Alkaline Phosphatase 79 U/L (45-117); Anion Gap 5 (5-15); BUN 13 mg/dL (7-18); Bilirubin, Direct 0.07 mg/dL (0.00-0.30); Calcium,Total 8.8 mg/dL (8.5-10.1); Chloride 110 mmol/L (98-107); Creatinine, Serum 0.81 mg/dL (0.55-1.02); EST Glomerular Filtration Rate 74 mL/min (>60); Est Glom Filt Rate - Afr Amer 90 mL/min (>60); Estimated Creatinine Clearance 47.08 ml/min; Globulin 3.5 g/dL (2.2-4.2); Glucose 103 mg/dL (74-106); Lipase 37 U/L (13-75); Potassium 4.3 mmol/L (3.5-5.1); Protein, Total 6.9 g/dL (6.4-8.2); Sodium Level 141 mmol/L (136-145)
[2024-01-25 17:47] VITALS: BP 131/66; PULSE 108; RESP 26; O2SAT 94
[2024-01-25 18:19] VITALS: BP 135/71; PULSE 98; RESP 14; TEMP 36.6; O2SAT 97
== END 2024-01-25 18:20 | disposition home or self-care (01) ==
PROVIDERS: Emergency Provider Emergency Medicine; PCP Family Medicine; Visit Provider Emergency Medicine
DX: R10.9 Unspecified abdominal pain (principal); R11.0 Nausea; R19.7 Diarrhea, unspecified; M79.7 Fibromyalgia; R14.0 Abdominal distension (gaseous); Z90.49 Acquired absence of other specified parts of digestive tract; F17.210 Nicotine dependence, cigarettes, uncomplicated
CPT/HCPCS: 74177; 80048; 80076; 83690; 85025; 99284; Q9967; A4216; J2405

== ENCOUNTER → 2024-05-31 | Outpatient (CLI) | payer MEDICARE, MEDICAID, SELFPAY ==
--- NOTE | 2024-05-31 11:09 | RAD_ITS ---
INDICATION: back pain EXAMINATION/TECHNIQUE: X-RAY - XR Spine Lumbar 2 or 3 Views COMPARISON: December 11, 2019 FINDINGS: VERTEBRAE: Preserved vertebral body height. No fracture. No spondylolisthesis. Preservation of the normal lumbar lordosis. There is multilevel facet arthropathy. DISCS: There is multilevel degenerative disc disease. INCLUDED ABDOMEN: Included bowel gas pattern is non-obstructive. There are vascular calcifications of the abdominal aorta. There are surgical clips within the right upper quadrant prior cholecystectomy. RAD/Lumbar Spine 2 or 3 Views IMPRESSION: Multilevel degenerative changes. Electronically Signed: Tiffany Severino MD at 8:34 EST ,
--- NOTE | 2024-05-31 11:12 | RAD_ITS ---
EXAM: XR CERVICAL SPINE, 4 OR 5 VIEWS CLINICAL INDICATION: neck pain TECHNIQUE: Frontal, lateral and bilateral oblique views of the cervical spine. COMPARISON: 07/11/2023. FINDINGS: VERTEBRAE: Multilevel endplate osteophytosis, facet arthrosis, and uncovertebral joint arthrosis. No spondylolisthesis. Preservation of the normal cervical lordosis. No fracture or traumatic subluxation. DISC SPACES: Multilevel intervertebral disc height loss. Multilevel osseous encroachment of the neural foramina. SOFT TISSUES: No significant abnormality. No prevertebral soft tissue widening. VASCULATURE: Vascular calcifications. LUNG APICES: Clear. RAD/Cerv Spine 4 or 5 Views IMPRESSION: Multilevel degenerative changes similar to the prior examination. No acute findings. Electronically Signed: Abe Quintana DO at 0:00 EST ,
[2024-05-31 12:14] LABS: Absolute Lymphocyte Count 2.87 X10^3/uL (0.83-4.51); Basophil# 0.03 X10^3/uL; Basophil% 0.3 % (0-1); Eosinophil# 0.11 X10^3/uL; Eosinophils% 1.3 % (0-5); Hematocrit 46.3 % (37-47); Hemoglobin 14.6 g/dL (12.0-15.0); Lymphocyte # 2.87 X10^3/ul (0.83-4.51); Lymphocyte % 33.2 % (19-41); Mean Corp Hgb Conc 31.5 g/dL (32-36); Mean Corpuscular Hgb 32.6 pg (27.0-32.0); Mean Corpuscular Volume 103.3 fL (81-99); Mean Platelet Vol. 9.6 fl (6.2-12.0); Monocyte# 0.64 X10^3/uL; Monocyte% 7.4 % (0-10); NRBC Flagged by Analyzer 0 % (0-5); Neutrophil # 4.96 X10^3/uL (2.7-7.7); Neutrophil % 57.5 % (47-70); Platelet Count 301 K/mm3 (150-450); RBC Distribution Width CV 12.7 % (11.6-14.6); RBC Distribution Width SD 47.8 fl (35.1-43.9); Red Blood Count 4.48 M/mm3 (4.2-5.4); White Blood Count 8.6 K/mm3 (4.4-11.0)
[2024-05-31 13:23] LABS: ALB/GLOB Ratio 1.3 RATIO (0.9-2.4); AST(SGOT) 16 U/L (15-37); Alanine Aminotransfer ALT/SGPT 25 U/L (13-56); Albumin, Serum 4.2 g/dL (3.2-5.0); Alkaline Phosphatase 79 U/L (45-117); Anion Gap 7 (5-15); BUN 12 mg/dL (7-18); BUN/Creat Ratio 14.8 RATIO (10-20); Calcium,Total 9.4 mg/dL (8.5-10.1); Chloride 108 mmol/L (98-107); Cholesterol 290 mg/dL (200); Creatinine, Serum 0.81 mg/dL (0.55-1.02); EST Glomerular Filtration Rate 74 mL/min (>60); Est Glom Filt Rate - Afr Amer 90 mL/min (>60); Globulin 3.2 g/dL (2.2-4.2); Glucose 90 mg/dL (74-106); High Density Lipoprotein 74 mg/dL; Potassium 4.2 mmol/L (3.5-5.1); Protein, Total 7.4 g/dL (6.4-8.2); Sodium Level 140 mmol/L (136-145); Triglycerides 141 mg/dL; Very Low Density Lipoprotein 28 mg/dL (5-40)
== END | disposition home or self-care (01) ==
LOC: MTLAB 11:09
PROVIDERS: PCP Family Medicine; Referring Provider Family Medicine; Visit Provider Family Medicine
DX: M54.30 Sciatica, unspecified side (principal); M54.2 Cervicalgia; R53.83 Other fatigue
CPT/HCPCS: 36415; 72050; 72100; 80053; 80061; 82306; 84443; 85025

== ENCOUNTER → 2024-08-08 | Outpatient (CLI) | payer MEDICARE, MEDICAID, SELFPAY ==
--- NOTE | 2024-08-08 12:58 | BI_ITS ---
PROCEDURE: SCRN MAMM (CAD)W/MASON BILAT REASON FOR EXAM: F, Age 69 y/o, no family history. Routine mammographic examination. TECHNIQUE: Bilateral screening digital breast tomosynthesis with 2D and 3D images. Computer aided detection. COMPARISON: Prior exam(s) dating back to May 31, 2019.. FINDINGS: The breasts are heterogeneously dense which may obscure small masses. Stable examination. No suspicious masses, areas of developing architectural distortion, or suspicious calcifications. BI/SCRN MAMM (CAD)W/MASON BILAT IMPRESSION: BI-RADS 2: BENIGN. RECOMMEND ANNUAL MAMMOGRAPHIC SCREENING. Follow-up code: Routine Follow-up The patient will be notified of the results by letter. Reading Location: [place] [id number]
--- NOTE | 2024-08-08 12:58 | BD_ITS ---
PROCEDURE: DEXA BONE DENSITY STUDY REASON FOR EXAM: F, age 69 y/o . TECHNIQUE: DEXA scan of the lumbar spine and both hips. COMPARISON: 02/22/2018 FINDINGS: T-SCORES Lumbar spine: -3.6 (BMD 0.652); Previously: -3.3 Left hip: -2.9 (BMD0.58); Previously: -2.8 Right hip: -2.9 (BMD 0.585); Previously: -3.1 FRAX* Results: 10 Year Probability of Fracture: Hip Fracture(1): 37% Major Osteoporotic Fracture(2): 22% *FRAX is a trademark of the [employer]'s [employer] for Metabolic Bone Disease, World Health Organization (WHO) Collaborating Powell. 1-The 10-year probability of fracture may be lower than reported if the patient has received treatment. 2-Major Osteoporotic Fracture: Clinical Spine, Forearm, Hip or Shoulder. The T-scores are also available for review on the [facility] PACS or by accessing the [facility] electronic medical record. BD/Dexa Bone Density Study IMPRESSION: Osteoporosis of the lumbar spine, right hip and left hip. Reading Location[facility]
== END | disposition home or self-care (01) ==
LOC: OPBD 12:55
PROVIDERS: PCP Family Medicine; Referring Provider Family Medicine; Visit Provider Family Medicine
DX: Z12.31 Encounter for screening mammogram for malignant neoplasm of breast (principal); Z78.0 Asymptomatic menopausal state
CPT/HCPCS: 77063; 77067; 77080

== ENCOUNTER → 2024-12-12 | Outpatient (CLI) | payer MEDICARE, MEDICAID, SELFPAY ==
[2024-12-12 15:12] LABS: Absolute Lymphocyte Count 2.61 X10^3/uL (0.83-4.51); Absolute Neutrophil Count 4.2 X10^3/uL (2.0-7.7); Basophil# 0.03 X10^3/uL; Basophil% 0.4 % (0-1); Eosinophil# 0.14 X10^3/uL; Eosinophils% 1.8 % (0-5); Hematocrit 42.3 % (37-47); Hemoglobin 13.9 g/dL (12.0-15.0); Lymphocyte # 2.61 X10^3/ul (0.83-4.51); Mean Corp Hgb Conc 32.9 g/dL (32-36); Mean Corpuscular Hgb 33.7 pg (27.0-32.0); Mean Corpuscular Volume 102.4 fL (81-99); Mean Platelet Vol. 9.9 fl (6.2-12.0); Monocyte# 0.66 X10^3/uL; Monocyte% 8.6 % (0-10); NRBC Flagged by Analyzer 0 % (0-5); Neutrophil % 54.8 % (47-70); Platelet Count 259 K/mm3 (150-450); RBC Distribution Width CV 12.5 % (11.6-14.6); RBC Distribution Width SD 46.9 fl (35.1-43.9); Red Blood Count 4.13 M/mm3 (4.2-5.4); White Blood Count 7.7 K/mm3 (4.4-11.0)
[2024-12-12 16:13] LABS: CORTISOL AM 7.61 ug/dL (6.02-18.40)
[2024-12-16 14:09] LABS: Vitamin D 1,25-Dihydroxy 65.4 pg/mL (24.8-81.5)
== END | disposition home or self-care (01) ==
LOC: MFPLAB 11:50
PROVIDERS: PCP Family Medicine; Referring Provider Family Medicine; Visit Provider Family Medicine
DX: E03.9 Hypothyroidism, unspecified (principal); R53.83 Other fatigue; E55.9 Vitamin D deficiency, unspecified
CPT/HCPCS: 36415; 82533; 82652; 84439; 84443; 85025

== ENCOUNTER 2025-01-23 08:17 | Emergency (ER) | payer MEDICARE, MEDICAID, SELFPAY ==
[2025-01-23] VITALS (9 sets, daily range): BP systolic 132–143; BP diastolic 78–94; PULSE 82–98; RESP 11–82; TEMP 36.6–37; O2SAT 94–99; BMI 23.4
--- NOTE | 2025-01-23 08:37 | EKG12_ITS ---
Test Reason : SOB Blood Pressure : */* mmHG Vent. Rate : 87 BPM Atrial Rate : 87 BPM P-R Int : 140 ms QRS Dur : 86 ms QT Int : 366 ms P-R-T Axes : 77 26 47 degrees QTcB Int : 440 ms Sinus rhythm with frequent Premature ventricular complexes Otherwise normal ECG Confirmed by XI ELIAS, MARY ([id number]), acquisition editor KATH PICKERING ([id number]) on 01/27/2025 8:19:27 AM Referred By: Confirmed By: MARY LAYNE MD
--- NOTE | 2025-01-23 08:37 | RAD_ITS ---
PROCEDURE: CHEST PA AND LATERAL 01/23/2025 REASON FOR EXAM: COUGH, SHORTNESS OF BREATH TECHNIQUE: CHEST PA AND LATERAL COMPARISON: Prior study dated January 19, 2023. FINDINGS: Hardware: EKG electrodes are seen. Heart: The heart is nonenlarged. Mediastinum: The mediastinal contour is unremarkable. Lungs: Increased markings are seen at the left lung base with blunting of the left costophrenic angles posteriorly suggestive of either linear scarring and/or atelectasis. This is new as compared to prior study. Bones: Degenerative changes are identified within the thoracic spine. Surgical clips in the right upper quadrant. RAD/Chest PA and Lateral IMPRESSION: Pleural-parenchymal changes at the left lung base as described. This may repre sent either linear atelectasis and/or scarring. Reading Location: [id number]
--- NOTE | 2025-01-23 08:38 | ED.VIS.DYS ---
HPI History of Present Illness Chief Complaint: Shortness of Breath Narrative Narrative: Chief complaint and HPI: Cough, shortness of breath. 69-year-old female with past medical history of COPD, tobacco abuse, hypothyroidism, HLD, fibromyalgia presents for evaluation of cough and shortness of breath. Patient states for the past 2 days she has had a progressive cough and chest tightness. States it hurts when she takes a deep breath. She takes her albuterol inhaler as needed. She did smoke a cigarette this morning, states her shortness of breath worsens when she smokes. Denies any fever, chills, abdominal pain, nausea, vomiting. Review of systems: See HPI Medications: As listed on the chart Allergies: As listed on the chart PFSH: Per chart Vital signs: As listed on the chart. Reviewed. Physical exam: Gen: A&O x3, NAD Head: Normocephalic, atraumatic Eyes: No sclera icterus, conjunctiva clear ENT: Moist mucous membranes Neck: Trachea midline, No JVD CV: RRR, no murmurs, no peripheral edema Resp: Lungs CTA BL with expiratory wheezing, productive cough GI: Abd soft, non-distended, non-tender, no r/r/g Musc: Full ROM, no deformity Skin: Warm, dry Neuro: Alert, oriented, grossly intact, sensation intact Psych: Cooperative, appropriate mood and affect [facility] Medical History Impingement of both shoulders Bilateral carpal tunnel syndrome Medial epicondylitis, right elbow Left shoulder pain Contact with and (suspected) exposure to other viral communicable diseases Emphysema with chronic bronchitis Thyroid disease Arthritis Home Medications ?Medication ?Instructions ?Recorded ?Last Taken ?Type levothyroxine 50 mcg capsule 50 mcg PO DAILY 10/09/22 Unknown History rosuvastatin 10 mg tablet 10 mg PO DAILY 10/09/22 Unknown History albuterol sulfate 90 mcg/actuation 2 puff inhalation Q6H PRN 11/02/22 Unknown Rx aerosol inhaler shortness of breath or wheezing #6.7 grams hydrocodone-acetaminophen 5-325mg 1 tab PO Q6H PRN PRN Pain 3 days 07/08/23 Unknown Rx 5mg-325mg #12 TABLETS doxycycline hyclate 100 mg capsule 100 mg PO BID 5 days #10 caps 01/23/25 Unknown Rx prednisone 20 mg tablet 60 mg (3 x 20 mg) PO DAILY 4 days 01/23/25 Unknown Rx #15 TABLETS Allergy/AdvReac Type Severity Reaction Status Date / Time No Known Allergies Allergy Verified 01/23/25 08:21 Family History Mother Cancer Father Cancer Surgical History Hx of cholecystectomy History of hysterectomy Social History household members: none Smoking Status: Current every day smoker tobacco type: cigarettes alcohol intake: never EXAM Physical Exam Const Vital Signs: 01/23/25 08:18 01/23/25 08:21 01/23/25 08:46 Temperature 98.3 F 97.9 F Temperature Source Oral Temporal Pulse Rate 98 92 Respiratory Rate 16 13 Respiratory Effort Respiratory Depth Respiratory Pattern Blood Pressure 142/91 H 143/89 H Blood Pressure Mean 108 107 Pulse Ox 99 97 99 Oxygen Delivery Method Room Air Room Air Room Air 01/23/25 08:47 01/23/25 09:03 01/23/25 09:18 Temperature Temperature Source Pulse Rate 89 93 Respiratory Rate 16 11 L Respiratory Effort Non-Labored Short of Breath Respiratory Depth Normal Respiratory Pattern Normal Blood Pressure 142/82 H Blood Pressure Mean 102 Pulse Ox 98 Oxygen Delivery Method Room Air Room Air 01/23/25 10:00 01/23/25 11:00 Temperature Temperature Source Pulse Rate 91 82 Respiratory Rate 16 82 H Respiratory Effort Respiratory Depth Respiratory Pattern Blood Pressure 142/85 H 132/78 H Blood Pressure Mean 104 96 Pulse Ox 95 94 Oxygen Delivery Method Room Air Room Air MDM MDM MDM Narrative Medical decision making narrative: 69-year-old female with past medical history of COPD, tobacco abuse, hypothyroidism, HLD, fibromyalgia presents for evaluation of cough and shortness of breath. Patient states for the past 2 days she has had a progressive cough and chest tightness. Differential diagnosis includes but is not limited to COPD exacerbation, pneumonia, viral illness, bronchitis, PE, suspect less likely CHF, ACS, pneumothorax. Prednisone and DuoNeb ordered. Shortness of breath workup ordered. EKG and chest x-ray reviewed see below. CBC without leukocytosis or anemia. Platelets unremarkable. D-dimer unremarkable. BMP unremarkable. Troponin x 2 unremarkable. BNP unremarkable. On reevaluation, patient's wheezing and chest tightness has improved. COVID, flu, RSV negative. Expect her symptoms are secondary to a COPD exacerbation and bronchitis as well as chronic tobacco abuse. Patient will be placed on a short course of steroids for her COPD. She was told to follow-up with her PCP. Albuterol inhaler as needed for wheezing. Will place her on a 5-day course of doxycycline for her bronchitis. She confirmed understand the plan. Return precautions explained. EKG: Interpreted by me/EM physician: EKG shows sinus rhythm with PVCs. No acute ischemic changes. Heart rate 87 Diagnostic: Interpreted by me/EM physician: Chest x-ray without cardiomegaly, pneumothorax, consolidation, effusion. Chronic lung changes. Per radiology pleural-parenchymal changes at the lung base. May represent either linear atelectasis and/or scarring. Impression: 1. COPD exacerbation 2. Bronchitis 3. History of tobacco use Lab Data Labs: Laboratory Results - last 24 hr 01/23/25 01/23/25 08:51 10:51 WBC 6.9 RBC 4.46 Hgb 14.8 Hct 45.1 MCV 101.1 H MCH 33.2 H MCHC 32.8 RDW Std Deviation 47.6 H RDW Coeff of Lizbeth 12.7 Plt Count 274 MPV 9.6 Immature Gran % (Auto) 0.400 Neut % (Auto) 59.9 Lymph % (Auto) 29.7 [place] % (Auto) 8.0 Eos % (Auto) 1.6 Baso % (Auto) 0.4 Absolute Neuts (auto) 4.1 Absolute Lymphs (auto) 2.04 Nucleated RBC % 0 D-Dimer Quant (PE/DVT) < 0.27 L Sodium 140 Potassium 4.7 Chloride 105 Carbon Dioxide 22.9 Anion Gap 12 BUN 12 Creatinine 0.77 Estim Creat Clear Calc 47.00 L Est GFR (MDRD) Non-Af 83 BUN/Creatinine Ratio 15.5 Glucose 107 H Calcium 9.8 Troponin T High Sens < 6 Troponin T Hi Sens 2 Hr 7 NT pro BNP II 153 Radiography Diagnostic Testing: Clinical Impression(s) from Imaging Studies Chest X-Ray 01/23/25 08:37 IMPRESSION: Pleural-parenchymal changes at the left lung base as described. This may represent either linear atelectasis and/or scarring. Reading Location: [id number] Discharge Plan Triage Chief Complaint: Shortness of Breath ED Provider: Abelardo Hart Dx/Rx/DC Orders Clinical Impression: COPD exacerbation, Bronchitis Instructions: ED Bronchitis with Wheezing (Adult), ED COPD Flare Prescriptions: New doxycycline hyclate 100 mg capsule 100 mg PO BID 5 Days Qty: 10 0RF prednisone 20 mg tablet 60 mg PO DAILY 4 Days Qty: 15 0RF Rx Instructions: Start on 01/24/2025. Received first dose in the ER. No Action levothyroxine 50 mcg capsule 50 mcg PO DAILY Patient Comments: take 1 capsule by mouth once daily rosuvastatin 10 mg tablet 10 mg PO DAILY Patient Comments: take 1 tablet by mouth nightly albuterol sulfate 90 mcg/actuation HFA aerosol inhaler 2 puff inhalation Q6H PRN (Reason: shortness of breath or wheezing) Qty: 6.7 0RF hydrocodone-acetaminophen [hydrocodone-acetaminophen] 5-325 mg tablet 1 tab PO Q6H PRN PRN (Reason: Pain) 3 Days Qty: 12 0RF Primary Care Provider: Dillon Shoemaker Referrals: Dillon Shoemaker MD [Primary Care Provider] - 3-5 Days Activity Restrictions/Additional Instructions: Follow-up with your primary care physician. Albuterol as needed for wheezing. Take all of your antibiotics and steroids. You received your first dose of steroid here in the emergency department, take your next dose tomorrow. You do need to start your antibiotics today. You did not receive antibiotics in the emergency department. Print Language: Spanish Disposition Disposition: Home, Self Care
[2025-01-23 09:10] LABS: Hematocrit 45.1 % (37-47); Hemoglobin 14.8 g/dL (12.0-15.0); Immature Granulocytes Count 0.030 X10^3/uL (0.0-0.0); Mean Corp Hgb Conc 32.8 g/dL (32-36); Mean Corpuscular Volume 101.1 fL (81-99); Mean Platelet Vol. 9.6 fl (6.2-12.0); NRBC Flagged by Analyzer 0 % (0-5); Platelet Count 274 K/mm3 (150-450); RBC Distribution Width CV 12.7 % (11.6-14.6); RBC Distribution Width SD 47.6 fl (35.1-43.9); Red Blood Count 4.46 M/mm3 (4.2-5.4); White Blood Count 6.9 K/mm3 (4.4-11.0)
[2025-01-23 09:20] LABS: D-Dimer Quantitative (DVT/PE) < 0.27 FEU/ug/m (0.27-0.49)
[2025-01-23 09:44] LABS: Anion Gap 12 (5-15); BUN 12 mg/dL (4-19); BUN/Creat Ratio 15.5 RATIO (10-20); Calcium,Total 9.8 mg/dL (7.6-11.0); Carbon Dioxide 22.9 mmol/L (21.0-32.0); Chloride 105 mmol/L (98-108); Estimated Creatinine Clearance 47.00 ml/min (50-250); Glucose 107 mg/dL (70-99); Potassium 4.7 mmol/L (3.3-5.1)
[2025-01-23 11:01] LABS: Pro- Brain NATRIURETIC PEPTIDE 153 pg/mL (<=900); Troponin T High Sensitivity < 6 ng/L (<=14)
[2025-01-23 11:24] LABS: Troponin T High Sens 2 HR 7 ng/L (<=14)
== END 2025-01-23 12:02 | disposition home or self-care (01) ==
PROVIDERS: Emergency Provider Surgery; PCP Family Medicine; Visit Provider Surgery
DX: J44.1 Chronic obstructive pulmonary disease with (acute) exacerbation (principal); E78.5 Hyperlipidemia, unspecified; Z90.710 Acquired absence of both cervix and uterus; F17.210 Nicotine dependence, cigarettes, uncomplicated; R06.02 Shortness of breath; E03.9 Hypothyroidism, unspecified; Z79.890 Hormone replacement therapy; Z90.49 Acquired absence of other specified parts of digestive tract; J40 Bronchitis, not specified as acute or chronic
CPT/HCPCS: 71046; 80048; 83880; 84484; 85025; 85379; 87631; 93005; 94640; 99285

== ENCOUNTER → 2025-05-20 | Outpatient (CLI) | payer MEDICARE, MEDICAID, SELFPAY ==
--- NOTE | 2025-05-20 14:59 | RAD_ITS ---
PROCEDURE: SHOULDER MIN 2 VIEWS 05/20/2025 REASON FOR EXAM: RIGHT SHOULDER PAIN; LEFT SHOULDER PAIN Pain TECHNIQUE: Procedure Code: RAD Modality: DX Procedure: SHOULDER MIN 2 VIEWS Laterality: Bilateral COMPARISON: 11 July 2023 FINDINGS: Radiographs of bilateral shoulders demonstrate anatomic alignment without acute fracture or subluxation. Small globular density in the subacromial soft tissues of the lateral aspect of the right shoulder which can be seen with calcific tendinitis. Coarse pulmonary markings in the lung apices. Degenerative changes of the cervical spine. No evidence of displaced rib fracture or pneumothorax. Atheromatous changes of the visualized aorta. RAD/Shoulder min 2 Views IMPRESSION: 1. Osteoarthritic degenerative changes of bilateral shoulders, mild. 2. Right subacromial soft tissue density which can be seen with calcific tendi nitis in the appropriate clinical context. Reading Location: [id number]
--- NOTE | 2025-05-20 14:59 | RAD_ITS ---
PROCEDURE: SHOULDER MIN 2 VIEWS 05/20/2025 REASON FOR EXAM: RIGHT SHOULDER PAIN; LEFT SHOULDER PAIN Pain TECHNIQUE: Procedure Code: RAD Modality: DX Procedure: SHOULDER MIN 2 VIEWS Laterality: Bilateral COMPARISON: 11 July 2023 FINDINGS: Radiographs of bilateral shoulders demonstrate anatomic alignment without acute fracture or subluxation. Small globular density in the subacromial soft tissues of the lateral aspect of the right shoulder which can be seen with calcific tendinitis. Coarse pulmonary markings in the lung apices. Degenerative changes of the cervical spine. No evidence of displaced rib fracture or pneumothorax. Atheromatous changes of the visualized aorta. RAD/Shoulder min 2 Views IMPRESSION: 1. Osteoarthritic degenerative changes of bilateral shoulders, mild. 2. Right subacromial soft tissue density which can be seen with calcific tendi nitis in the appropriate clinical context. Reading Location: [id number]
== END | disposition home or self-care (01) ==
LOC: MTRAD 14:59
PROVIDERS: PCP Family Medicine; Referring Provider Family Medicine; Visit Provider Family Medicine
DX: M25.511 Pain in right shoulder (principal)
CPT/HCPCS: 73030